=== PATIENT | male | born 1940 | race Caucasian/White ===

== ENCOUNTER 2021-06-07 08:07 | Inpatient (IN) | payer MEDICARE, SELFPAY ==
[2021-06-07] VITALS (43 sets, daily range): BP systolic 126–164; BP diastolic 73–97; PULSE 54–76; RESP 14–38; TEMP 36.2–37.1; O2SAT 90–100; BMI 20.9
--- NOTE | ~2021-06-07 | XR_ITS ---
XR chest 2V 06/10/2021 14:18 Indication: Shortness of breath Procedure: 2 view chest Comparison: 06/07/2021 Findings: Improving bibasilar airspace disease, compatible with pneumonia. There is probable superimp osed chronic interstitial fibrosis. Cannot exclude small effusion. No pneumothorax. Elevated left susana phragm. Impression: 1: Improving bibasilar airspace disease, consistent with pneumonia. Probable superimposed pulmonary f ibrosis. Reviewed, dictated and finalized at location A. Impression: 1: Improving bibasilar airspace disease, consistent with pneumonia. Probable herman perimposed pulmonary fibrosis.
--- NOTE | ~2021-06-07 | XR_ITS ---
EXAMINATION: XR hip RT 2V w AP pelvis EXAM DATE: 06/07/2021 08:54 INDICATION: Right hip pain after fall. TECHNIQUE: Right hip frontal, 'frog leg' projections for interpretation. Frontal projection pelvis. There is no prior study for comparison. FINDINGS: There is lucency along the right intertrochanteric region, possible acute closed posttrauma tic nondisplaced intertrochanteric fracture; recommend CT scan for further evaluation. Mild to modera te bilateral hip primary osteoarthritis. Advanced lower lumbar spondylosis. IMPRESSION: Recommend CT pelvis or right hip without contrast for possible nondisplaced intertrochan teric fracture. Reviewed, dictated and finalized at location B. IMPRESSION: Recommend CT pelvis or right hip without contrast for possible non displaced intertrochanteric fracture.
--- NOTE | ~2021-06-07 | XR_ITS ---
EXAMINATION: XR chest 1V EXAM DATE: 06/07/2021 08:54 INDICATION: fall, HX: HTN . TECHNIQUE: Portable AP frontal chest x-ray was obtained. There is no prior study for comparison. FINDINGS: 2 small cardiac device overlying the heart. There is moderate amount of diffuse abnormal re ticulation, acute versus chronic. Some more common acute processes include could be edema or pneumoni a. If chronic could be interstitial lung disease. Cardiomediastinal silhouette is normal. There may b e a moderate-sized gastroesophageal hiatal hernia. There are bony degenerative changes. IMPRESSION: 1. Diffuse abnormal reticulation, acute versus chronic process. Reviewed, dictated and finalized at location B.
--- NOTE | ~2021-06-07 | XR_ITS ---
EXAMINATION: XR knee RT min 4V DATE: 06/07/2021 08:54 INDICATION: Right knee pain. Fall. TECHNIQUE: 4 views of right knee were obtained. COMPARISON: None. FINDINGS: There is varus angulation at the knee. No fracture. There is severe osteoarthritis of media l and patellofemoral compartments and moderate osteoarthritis of lateral compartment. No knee joint e ffusion. IMPRESSION: 1. Severe right knee osteoarthritis. Reviewed, dictated and finalized at location A.
--- NOTE | ~2021-06-07 | CT_ITS ---
EXAMINATION: CT pelvis wo con EXAM DATE: 06/07/2021 09:37 INDICATION: Fall. Abnormal x-ray with suspicion of intertrochanteric fracture. TECHNIQUE: Spiral CT pelvis wo con was performed without contrast. Axial, coronal and sagittal imag es were reviewed. The dose-length product (DLP) for this examination was 263.54 mGy-cm. The exposur e was tailored according to patient size (auto mA exposure control), and iterative reconstruction ( IR) was used as additional dose reduction technique. There is no prior study for comparison. FINDINGS: There is acute closed posttraumatic nondisplaced fracture through the right intertrochante james region with minimal posterior angulation, no displacement. No dislocation. The left hip, pelvis, sacrum are intact. There is small to moderate-sized hematoma within or between the right gluteus maxi mum and medius muscles. Mild to moderate prostatomegaly. Prostate calcifications. There is mild to moderate sigmoid no pelvic lymphadenopathy. colonic diverticulosis. There is no adjacent inflammatory change to suggest divert iculitis. IMPRESSION: 1. Acute nondisplaced right hip intertrochanteric fracture. 2. Right gluteal hematoma. 3. Intact pelvis. Reviewed, dictated and finalized at location B.
--- NOTE | ~2021-06-07 | XR_ITS ---
XR surgery orthopedic 06/08/2021 17:24 Indication: Right hip intertrochanteric nail placement. Procedure: 9 fluoroscopic views of the right hip. 165 seconds of fluoroscopy. Comparison: No prior studies for comparison. Findings: Status post intraoperative fixation with intertrochanteric nail and intramedullary hilary. The re is a single distal interlocking screw. Fracture fragments in anatomic alignment post reduction. Impression: 1: Anatomic alignment of the right femur post reduction with intertrochanteric nail and intramedullar y hilary. Reviewed, dictated and finalized at location A. Impression: 1: Anatomic alignment of the right femur post reduction with intertrochanteric nail and intramedullary hilary.
--- NOTE | ~2021-06-07 | CT_ITS ---
EXAMINATION: CT brain wo con, CT cervical spine wo con EXAM DATE: 06/07/2021 08:32 INDICATION: Fall, hit right side of head. TECHNIQUE: Spiral CT of the head was performed without contrast. Axial, coronal and sagittal images were reviewed. Spiral CT of the cervical spine was performed without contrast. Axial images were rev iewed. Coronal and sagittal reformatted images were also reviewed. The dose-length product (DLP) fo r this examination was 605.33 (accession [id number]), 446.63 (accession [id number]) mGy-cm. The exposure was tailored according to patient size, and iterative reconstruction (ASIR) was used as additional dose reduction technique. There is no prior study for comparison. FINDINGS: HEAD CT: There is punctate old right cerebellar infarction. Old large bilateral middle cerebral arter y infarctions. Small old bilateral occipital lobe infarctions. Microangiopathy and cerebral atrophy. There is no acute intraparenchymal hemorrhage. No evidence of intraparenchymal brain mass lesion. N o evidence of acute infarction. There is no mass effect or midline shift. There is no obstructive hyd rocephalus suspected. There are no extra-axial collections. There are no acute calvarial fractures. Patient has had bilateral ocular lens surgery. Soft tissue is unremarkable. The visualized sinuse s and mastoid air cells are well aerated. CERVICAL CT: There is no evidence of acute cervical fracture. The odontoid process is intact. Pre- dens space is normal. Prevertebral soft tissue is normal. There are no soft tissue abnormalities id entified. There is no disc space widening or traumatic vertebral body subluxation suspected. There is moderate to severe cervical spondylosis. A detailed level by level evaluation of spondylosis can be added as addendum if requested. IMPRESSION: 1. No acute intracranial findings or cervical fracture. 2. Old infarctions. 3. Cervical spondylosis. Reviewed, dictated and finalized at location B. IMPRESSION: 1. No acute intracranial findings or cervical fracture. 2. Old infarctions. 3. Cervical spondylosis.
--- NOTE | 2021-06-07 08:24 | PC.NURSE ---
Pt to radiology.
--- NOTE | 2021-06-07 09:46 | ECG_ITS ---
Measurements Intervals [place] Rate: 59 P: 53 NV: 147 QRS: -24 QRSD: 116 T: -14 QT: 429 QTc: 425 Interpretive Statements SINUS BRADYCARDIA BORDERLINE ST-T WAVE ABNORMALITY- INFERIOR LEADS BASELINE ARTIFACT- I, II, III, AVR, AVL, AVF, V2-V6 BORDERLINE ECG Electronically Signed On 06-07-2021 10:17:48 CDT by Shaheen Abdalla D.O.
--- NOTE | 2021-06-07 10:15 | ED.FALL ---
HPI - Fall General Chief Complaint: Fall Stated Complaint: FALL, KNEE PAIN Source: RN notes reviewed History of Present Illness HPI Narrative: Patient presents emergency department from home via EMS for fall. Patient was at home with his currently walks with a cane when outdoors but does not use a cane when inside is in the bathroom today when he fell patient does have a history of a previous stroke and has some residual right-sided weakness patient is complaining of pain in his right knee and lower leg been unable to walk since the fall per the he does have a small abrasion over the side of his head and believes he hit his head but did not have any loss of consciousness he is on Pradaxa at home previous stroke patient denies any chest pain or shortness of breath he does have a history of aphasia from previous stroke Related Data Home Medications Medication Instructions Recorded Confirmed aspirin 81 mg tablet,delayed 81 mg PO DAILY 02/08/20 05/11/21 release dabigatran etexilate 75 mg capsule 75 mg PO BID 02/08/20 05/11/21 escitalopram oxalate [Lexapro] 5 mg PO DAILY 02/08/20 05/11/21 finasteride 5 mg PO DAILY 02/08/20 05/11/21 potassium chloride PO 02/08/20 05/11/21 Allergies Allergy/AdvReac Type Severity Reaction Status Date / Time No Known Allergies Allergy Verified 06/07/21 08:21 Review of Systems Review of Systems: Gen.: Denies fevers or chills Eyes: Denies eye pain or visual change ENT: Denies facial pain Respiratory: Denies shortness of breath CV: Denies chest pain GI: Denies abdominal pain nausea, emesis Musculoskeletal: See HPI Neuro: Denies headache or loss of consciousness Skin: Denies rash Except as documented, all other systems reviewed and negative [facility] Past Medical History Medical History Anxiety History of stroke Hypertension Surgical History Surgical History H/O esophagectomy History of back surgery History of hernia repair History of knee surgery Family History Family History Sibling Cerebrovascular accident Heart disease Mother Hypertension Other Hypertension Social History Social History Smoking status: Never smoker Alcohol intake: never Substance use: never Exam Narrative: APPEARANCE: No acute distress, nontoxic, resting in bed EYES: EOMI HEENT: Normocephalic, small superficial abrasion right lateral scalp, nares patent no facial tenderness Neck: Supple no midline tenderness palpation RESPIRATORY: No respiratory distress Clear to auscultation bilaterally with no rhonchi wheezing or rales. CARDIOVASCULAR: Regular rate and rhythm without murmurs rubs or gallops. ABDOMINAL: Soft, nontender, nondistended, no rebound or guarding MUSCULOSKELETAl: Moves all extremities. No clubbing, cyanosis or edema. No tenderness of bilateral upper extremities left lower extremity, tender palpation of the right lateral hip and right anterior knee no swelling or ecchymosis no tenderness of the right ankle dorsalis pedis pulse 2+ neurovascular intact NEURO: Awake and alert x 1. Following commands, aphasia, no focal deficits SKIN:: Warm, dry. No rashes lesions or abrasions PSYCHIATRIC: Normal affect/mood, Course Course Emergency Course: Discussed with Dr. Dean patient work-up agrees with consult at this time Discussed with Dr. Nguyen presentation work-up agrees with admission at this time Discussed with patient and family results of workup and diagnosis. Discussed need for admission. Patient and family understand and agree to current treatment plan Vital Signs Vital signs: Vital Signs Temperature 97.1 F L 06/07/21 08:10 Pulse Rate 59 L 06/07/21 08:10 Respiratory Rate 14 06/07/21 08:10 Blood Pressure 126/88 06/07/21 08:10 Pulse Oximetry
--- NOTE | 2021-06-07 10:25 | PC.NURSE ---
Attempted IV access and lab draw without success. Cat, RN to try.
[2021-06-07 11:21] LABS: Alanine Aminotransferase 20 U/L (4-50); Albumin Level 3.9 g/dL (3.5-5.1); Alkaline Phosphatase 103 U/L (38-126); Anion Gap 7 mmol/L (8-16); Aspartate Amino Transferase 30 U/L (17-59); Basophils Percent Auto 0.2 % (0.2-1.2); Blood Urea Nitrogen 22 mg/dL (9-20); Calcium 9.2 mg/dL (8.4-10.2); Carbon Dioxide 29 mmol/L (22-30); Chloride 105 mmol/L (98-107); Eosinophils Absolute Auto 0.1 K/mm3 (0-0.3); Eosinophils Percent Auto 0.6 % (0-4.4); Estimated CRCL calculation 57 ml/min; Estimated Glomerular Filt Rate > 60; Glucose 102 mg/dL (65-110); Hematocrit 44.8 % (42.0-52.0); Hemoglobin 14.6 g/dL (14.0-18.0); Immature Granulocyte Absolute 0.05 K/mm3 (0.00-0.031); Immature Granulocyte Percent A 0.4 % (0-0.5); Immature Platelet Fraction Pct 15.8 % (0.9-11.2); Lymphocytes Absolute Auto 1.95 K/mm3 (0.9-3.2); Lymphocytes Percent Auto 14.8 % (18.3-44.2); Mean Corpuscular HGB Conc 32.6 g/dl (32-36); Mean Corpuscular Hemoglobin 31.7 pg (26-34); Mean Corpuscular Volume 97.2 fl (80-100); Mean Platelet Volume 11.4 fl (7.4-10.4); Monocytes Absolute Auto 0.8 K/mm3 (0.1-0.6); Monocytes Percent Auto 5.8 % (2.6-8.5); Neutrophils Absolute Auto 10.3 K/mm3 (1.3-6.7); Neutrophils Percent Auto 78.2 % (45.5-73.1); Potassium 4.2 mmol/L (3.4-5.0); Red Blood Count 4.61 M/mm3 (4.6-6.20); Red Cell Distribution Width 14.6 % (11.5-14.5); Sodium 141 mmol/L (137-145); White Blood Count 13.2 K/mm3 (4.5-10.0)
[2021-06-07 11:25] LABS: INR 1.5; Prothrombin Time 17.7 Seconds (11.1-14.7)
[2021-06-07 11:26] LABS: Partial Thromboplastin Time 51.4 SECONDS (22.3-36.8)
--- NOTE | 2021-06-07 11:37 | PC.NURSE ---
Assumed care of pt. Pt resting in NAD. Denies need for pain medication at this time. Pt and spouse updated on POC. Urine sent.
[2021-06-07 12:04] LABS: Add Urine Microscopic? YES; Amorphous Sediment Urine Few; Appearance Urine Cloudy (Clear); Bilirubin Urine Negative (Negative); Blood Urine Negative (Negative); Budding Yeast Urine Present /hpf; Color Urine Yellow (Yellow); Glucose Urine UA Negative (Negative); Ketones Urine Trace mg/dL (Negative); Leukocyte Esterase Ur Negative LEU/UL (Negative); Nitrate Urine Negative (Negative); Protein Urine 1+ mg/dL (Negative); Specific Grav Ur 1.016 (1.001-1.035); Squamous Epithelial Cell Urine Rare /hpf (Few); Urobilinogen Urine Negative mg/dL (<2.0)
--- NOTE | 2021-06-07 14:15 | PM.IMHP ---
H&P: HPI History of Present Illness Date/Time: 06/07/21 14:15 this is a 72-year-old male patient who resides with his . The patient had had a stroke in the past and he has some right-sided residual. The patient has also had esophageal cancer in the past without any radiation only surgery. The patient does not walk with a cane inside the house and only walks with a cane outside the house. Today the patient was in the bathroom any fell and hit the right side of his head. He was complaining of pain to his right knee and lower leg he was unable to walk as well. The patient did not lose consciousness and is on Pradaxa at home. The patient has expressive aphasia and speaks very little. The patient's stated this cognitive state is his baseline. Head CT was read as no acute intracranial findings or cervical fracture. Old infarctions. Cervical spondylosis. Cervical spine CT read as no acute intracranial findings or cervical fracture. Old infarctions. Cervical spondylosis. Hip and pelvis x-ray was read as recommend CT pelvis of right hip without contrast for possible nondisplaced intertrochanteric fracture. Right knee x-ray was read as severe right knee osteoarthritis. Chest x-ray was read as diffuse abnormal reticulation acute versus chronic process. Pelvis CT was read as acute nondisplaced right hip intertrochanteric fracture. Right gluteal hematoma. Intact pelvis. Ortho has been consulted. Patient was given IV Tylenol. The right leg issue slightly shorter than the left. The patient is being admitted for observation status on the date of service 06/07/2021. Chief Complaint: Fall Review of Systems Review of Systems: All systems reviewed & are unremarkable except as noted in HPI and below Constitutional: Constitutional: Reports as per HPI and Reports no additional constitutional complaints Eyes: Eyes: Reports as per HPI and Reports no additional eye complaints ENT: Reports system reviewed and no additional complaints, except as documented and Reports Normal hearing present Cardiovascular: Cardiovascular: Reports no additional cardiovascular complaints Respiratory: Respiratory: Reports no additional respiratory complaints and Reports no additional respiratory complaints Gastrointestinal: Gastrointestinal: Reports as per HPI and Reports no additional gastrointestinal complaints Musculoskeletal: Musculoskeletal: Reports no additional musculoskeletal complaints Integumentary/Breasts: Skin/Breast: Reports system reviewed and no additional complaints, except as docu and Reports as per HPI Neurologic: Reports system reviewed and no additional complaints, except as documented, Reports as per HPI and Reports Normal hearing present Psychiatric: Psychiatric: Reports no additional psychiatric complaints and Reports as per HPI Endocrine: Endocrine: Reports no additional endocrine complaints Hematologic/Lymphatic: Hematologic/Lymphatic: Reports no additional hematologic/lymphatic complaints Allergic/Immunologic: Allergic/Immunologic: Reports no additional allergic/immunologic complaints [facility] Past Medical History Medical History (Updated 06/07/21 @ 14:31 by Tarah Meza NP) Anxiety With depression BPH (benign prostatic hyperplasia) History of CVA in adulthood Expressive aphasia and right-sided weakness. History of malignant neoplasm of esophagus Status post esophagectomy without any radiation or chemotherapy History of stroke Hypertension Paroxysmal atrial fibrillation Presence of Watchman left atrial appendage closure device Surgical History Surgical History H/O esophagectomy History of back surgery History of hernia repair History of knee surgery Family History Family History (Updated 06/07/21 @ 14:24 by Tarah Meza NP) Sibling Heart disease Mother Hypertension Other Hypertension Father COPD (chronic obstructive pulmonary disease) So
[2021-06-07] MEDS: SODIUM CHLORIDE 0.9% IV 1,000 ML 100 ML IV CONT (15:10)
--- NOTE | 2021-06-07 15:22 | ADMGEN ---
This patient, Eric Barry, was admitted to [facility] Surg Room 323-01. Patient/family oriented to hospital policies and general routines including ID bracelet, bed and alarms, visiting hours, pain management, procedures, bathroom and other care routines, personal items, smoking policy, room service/diet, and visiting hours. Information on how to activate the Rapid Response Team has been discussed. Patient/Family are encouraged to report perceived risks to care and to ask questions if they do not understand what they are told or what they should do.
--- NOTE | 2021-06-07 17:43 | PM.CNOR ---
Assessment and Plan Additional Plan Patient is a 80-year-old gentleman who fell earlier today M was brought to the emergency room found to have a minimally impacted right intertrochanteric hip fracture. One can see the fracture on the plain x-ray but to be absolutely sure his CT scan was recommended which confirmed the fracture. It looks like a mild valgus impaction pattern with about a mm of displacement in the medial calcar region. He also has a history of severe osteoarthritis in that right knee and has had cortisone shots in it in the past. He has not had cortisone shots for many years. 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 His last dose of Pradaxa was 9:00 p.m. last night. His past medical history is also significant for hypertension remote smoking history BPH back surgery in the past he history of hernia repair and knee surgery and history of esophagectomy for malignant neoplasm of the esophagus. He does have expressive aphasia from a stroke but he was able to answer yes or no when I asked him direct questions and he does follow commands. No His states that he normally walks without any gait aid at home but does use a cane when he goes out for balance. On exam he listened closely to my discussion with him and his . He did answer questions with yes or no. His voice is a little bit weak. He wiggles is foot into dorsiflexion plantar flexion without difficulty without contracture or spasticity. He has a 2+ dorsalis pedis 1+ posterior tibial artery pulse palpable that I had numbness light touch testing. He does appear to have a flexion contracture his right knee but there is no effusion and no tenderness at the knee. His ecchymosis in the posterolateral hip area and pain in the hip proximal thigh with any movement. He has had CT of the head which showed old stroke and no acute bleed and CT of the cervical spine which showed no fracture. X-rays of the right knee showed severe arthritis. Impression patient has a minimally displaced right intertrochanteric hip fracture. I have discussed treatment options with patient and his . This fracture can heal with nonoperative treatment but does require at least 4 in usually 6 weeks of relative bed rest to achieve union and mortality risk with non operative treatment of these fractures is higher than with surgical treatment at all time points and it is therefore felt that surgical stabilization is the best treatment unless patient is not a surgical candidate for some reason. He was ambulatory before this fall would like to hopefully regain optimal level of ambulation again. I have discussed with patient and his that there are risks of surgery such as infection and blood clots and problems with healing of the fracture. I have discussed that with this fracture and with stress of anesthesia there is risk of severe medical complications and mortality and to this end his states that he wishes to be DNR but understands that that would be suspended during the immediate perioperative period. They would like to proceed with surgery. I have made plans with anesthesia to proceed at 3:00 p.m. tomorrow which would be 42 hours after his last dose of Pradaxa which I think would be appropriate. I have discussed that he will have increased bleeding today tomorrow and postoperatively because of his anticoagulation and his risk of needing a transfusion is higher in the is typed and screened. I would like to have cardiology see him for assessment of cardiac risk and any other treatment recommendations. Depending on whether not he show signs of bleeding after surgery we would restart his Pradaxa either 9:00 a.m. the morning after surgery or the of 9:00
[2021-06-08] VITALS (14 sets, daily range): BP systolic 142–165; BP diastolic 75–88; PULSE 62–91; RESP 14–22; TEMP 35.9–36.6; O2SAT 93–100; BMI 20.9
--- NOTE | 2021-06-08 | ECHO_ITS ---
Patient Info Name: Eric Barry Age: 80 years : 1940 Gender: Male Ht: 71 in Wt: 150 lbs BSA: 1.84 m2 HR: 70 bpm BP: 145 / 81 mmHg Heart Rhythm: Sinus Rhythm Technical Quality: Poor Exam Date: 06/08/2021 10:18 AM Exam Location: [facility] Pulmonary Patient Status: Inpatient Admit Date: 06/07/2021 Staff Ordering Physician: José Miguel Garcia MD Licensed Loan Officer Assistant: Hanna Preston RDCS Attending Provider: Kristin Nguyen MD Referring Physician: Jose SOMMER; Exam Type: CA echo dop color flow w con Study Info Indications - PREOP I48.0 - Paroxysmal atrial fibrillation Complete two-dimensional, color flow and Doppler transthoracic echocardiogram is performed with contrast to opacify the left ventricle and to improve the deliniation of the left ventricle endocardial borders. Contrast/Agitated Saline Contrast/Ag. Saline: Definity Amount: 2.00 ml Administered By: Lily Kelly RN Existing IV Access: Yes Site Condition: No extravasation Reason for Poor Study: poor echocardiographic windows Summary 1. Left ventricular chamber dimension is normal. 2. Left ventricular systolic function is normal, estimated at 55-60%. 3. There is mildly increased left ventricular wall thickness. 4. The left ventricular diastolic function is abnormal. 5. Left atrial chamber dimension is mildly enlarged. 6. There is mild mitral valve regurgitation. 7. The mitral valve has thickened leaflets and calcified leaflets. 8. There is mild tricuspid valve regurgitation. 9. Mild pulmonary hypertension, estimated pulmonary arterial systolic pressure is 39 mmHg. 10. There is mild pulmonic regurgitation. Left Ventricle Left ventricular chamber dimension is normal. Left ventricular systolic function is normal, estimated at 55-60%. There is mildly increased left ventricular wall thickness. The left ventricular diastolic function is abnormal. Right Ventricle Right ventricular chamber dimension is normal. Right ventricular systolic function is normal. Left Atria Left atrial chamber dimension is mildly enlarged. Right Atria Right atrial chamber dimension is normal. Atrial Septum Intact interatrial septum visualized by color flow imaging. Aortic Valve The aortic valve is trileaflet. There is mild aortic valve sclerosis. There is no aortic valve stenosis. There is trace aortic valve regurgitation. Pulmonic Valve The pulmonic valve is normal. There is no pulmonic valve stenosis. There is mild pulmonic regurgitation. Mitral Valve The mitral valve has thickened leaflets and calcified leaflets. There is no mitral valve stenosis. There is mild mitral valve regurgitation. Tricuspid Valve The tricuspid valve leaflets are normal. There is no significant tricuspid valve stenosis. There is mild tricuspid valve regurgitation. Mild pulmonary hypertension, estimated pulmonary arterial systolic pressure is 39 mmHg. Pericardium/Pleural The pericardium appears normal. There is no pericardial effusion. Inferior Vena Cava Normal inferior vena cava with >50% collapse upon inspiration consistent with normal right atrial pressure, 10 mmHg. Aorta The aortic root size at the sinus of Valsalva is normal. Left Ventricular Outflow Tract Name Value Normal
[2021-06-08] MEDS: SODIUM CHLORIDE 0.9% IV 1,000 ML 100 ML IV CONT ×2 (02:29→12:18)
[2021-06-08 06:21] LABS: Basophils Absolute Auto 0.1 K/mm3 (0.0-0.1); Basophils Percent Auto 0.6 % (0.2-1.2); Eosinophils Absolute Auto 0.3 K/mm3 (0-0.3); Eosinophils Percent Auto 2.4 % (0-4.4); Hematocrit 40.6 % (42.0-52.0); Hemoglobin 12.7 g/dL (14.0-18.0); Immature Granulocyte Absolute 0.04 K/mm3 (0.00-0.031); Immature Granulocyte Percent A 0.4 % (0-0.5); Lymphocytes Absolute Auto 1.71 K/mm3 (0.9-3.2); Lymphocytes Percent Auto 16.2 % (18.3-44.2); Mean Corpuscular HGB Conc 31.3 g/dl (32-36); Mean Corpuscular Hemoglobin 31.7 pg (26-34); Mean Corpuscular Volume 101.2 fl (80-100); Mean Platelet Volume 9.5 fl (7.4-10.4); Monocytes Absolute Auto 0.9 K/mm3 (0.1-0.6); Monocytes Percent Auto 8.5 % (2.6-8.5); Neutrophils Absolute Auto 7.6 K/mm3 (1.3-6.7); Neutrophils Percent Auto 71.9 % (45.5-73.1); Platelet Count Result 134 k/mm3 (150-375); Red Blood Count 4.01 M/mm3 (4.6-6.20); White Blood Count 10.5 K/mm3 (4.5-10.0)
[2021-06-08 06:36] LABS: Alanine Aminotransferase 16 U/L (4-50); Albumin Level 3.4 g/dL (3.5-5.1); Alkaline Phosphatase 90 U/L (38-126); Anion Gap 6 mmol/L (8-16); Aspartate Amino Transferase 22 U/L (17-59); Bilirubin,Total 1.1 mg/dL (0.2-1.3); Blood Urea Nitrogen 20 mg/dL (9-20); Calcium 8.6 mg/dL (8.4-10.2); Carbon Dioxide 27 mmol/L (22-30); Chloride 106 mmol/L (98-107); Estimated CRCL calculation 52 ml/min; Estimated Glomerular Filt Rate > 60; Glucose 112 mg/dL (65-110); Sodium 139 mmol/L (137-145)
[2021-06-08 06:45] LABS: INR 1.3; Prothrombin Time 16.3 Seconds (11.1-14.7)
[2021-06-08 06:46] LABS: Partial Thromboplastin Time 47.9 SECONDS (22.3-36.8); Vitamin D 25 Hydroxy 33.5 ng/mL
[2021-06-08] MEDS: ESCITALOPRAM OXALATE 5 MG TABLET PO (08:14)
[2021-06-08] MEDS: FINASTERIDE 5 MG TABLET PO (08:14)
--- NOTE | 2021-06-08 09:17 | PM.CNCAR ---
Assessment and Plan Assessment and plan (1) Paroxysmal atrial fibrillation: Code(s): I48.0 - Paroxysmal atrial fibrillation Status: Chronic Assessment and Plan: In sinus rhythm. Anticoagulation is on hold. Resume anticoagulation when able after (2) Hypertension: Code(s): I10 - Essential (primary) hypertension Status: Chronic Assessment and Plan: above goal (3) Preop cardiovascular exam: Code(s): Z01.810 - Encounter for preprocedural cardiovascular examination Status: Acute Assessment and Plan: Patient is at low risk of perioperative cardiovascular complications. (4) History of stroke: Code(s): Z86.73 - Personal history of transient ischemic attack (TIA), and cerebral infarction without residual deficits Status: Acute (5) Chronic anticoagulation: Code(s): Z79.01 - local company intermodal truck driver (current) use of anticoagulants Status: Acute Assessment and Plan: Previously on Pradaxa (6) Closed intertrochanteric fracture of right hip: Code(s): S72.141A - Displaced intertrochanteric fracture of right femur, initial encounter for closed fracture Status: Acute Assessment and Plan: Patient is at low risk of perioperative cardiovascular complications. I will check a 2D echocardiogram with Doppler for basic LV size and function and for any valvular abnormalities but again I think that the patient needs a stress test or any ischemic evaluation prior to hip surgery. EKGs are unchanged over the past 4 years. History of Present Illness History of Present Illness Consult date/time: 06/08/21 09:17 Requesting physician: Robin Dean MD Consult reason: pre-op evaluation Reason For Visit: FALL, KNEE PAIN Narrative: Date of service 06/08/2021 Reason consultation preoperative risk evaluation Requesting provider: Dr. Dean History patient 72 year old male who has no known coronary history. He does have a history of a stroke in some residual right-sided issues. Also has history of esophageal cancer. He came to hospital following a fall. He is in the bathroom and fell and hit the right side resulting in a hip fracture. He does have expressive aphasia but does answer questions. He denies any chest pain, shortness breath, syncope, presyncope, paroxysmal nocturnal dyspnea, orthopnea, edema palpitations. He does walk with a cane. EKG is unchanged from 2017 showing some inferior nonspecific ST and T-wave abnormalities. Otherwise sinus bradycardia. These EKGs are personally reviewed. Review of Systems Review of Systems: All systems reviewed & are unremarkable except as noted in HPI and below Constitutional: Constitutional: Reports weakness Eyes: Eyes: Denies blurry vision ENT: Reports Normal hearing present Cardiovascular: Cardiovascular: Denies chest pain Respiratory: Respiratory: Denies dyspnea Gastrointestinal: Gastrointestinal: Denies abdominal pain Genitourinary: Genitourinary: Denies dysuria Musculoskeletal: Musculoskeletal: Denies neck pain Integumentary/Breasts: Skin/Breast: Denies dry skin Neurologic: Denies headache(s) Psychiatric: Psychiatric: Denies anxiety Endocrine: Endocrine: Denies fatigue Hematologic/Lymphatic: Hematologic/Lymphatic: Denies easy bleeding Allergic/Immunologic: Allergic/Immunologic: Denies GI upset with certain foods PMFSH Past Medical History Medical History Anxiety With depression BPH (benign prostatic hyperplasia) History of CVA in adulthood Expressive aphasia and right-sided weakness. History of malignant neoplasm of esophagus Status post esophagectomy without any radiation or chemotherapy History of stroke Hypertension Paroxysmal atrial fibrillation Presence of Watchman left atrial appendage closure device Surgical History Surgical History H/O esophagectomy Hist
--- NOTE | 2021-06-08 12:25 | PM.IMPN ---
Progress Note: A&P Assessment and Plan (1) Closed intertrochanteric fracture of right hip: Code(s): S72.141A - Displaced intertrochanteric fracture of right femur, initial encounter for closed fracture Status: Acute (2) Paroxysmal atrial fibrillation: Code(s): I48.0 - Paroxysmal atrial fibrillation Status: Chronic (3) Chest x-ray abnormality: Code(s): R93.89 - Abnormal findings on diagnostic imaging of other specified body structures Status: Acute Assessment and Plan: diffuse abnormal reticulation seen on chest xray - acute vs chronic based on read pt does not have pulmonary symptoms at the moment suspect some undiagnosed underlying chronic lung issue - plan to obtain Chest CT (4) Hypertension: Code(s): I10 - Essential (primary) hypertension Status: Chronic (5) BPH (benign prostatic hyperplasia): Code(s): N40.0 - Benign prostatic hyperplasia without lower urinary tract symptoms Status: Chronic (6) Anxiety: Code(s): F41.9 - Anxiety disorder, unspecified Status: Chronic Additional Plan Closed intertrochanteric f/x rt hip: plan for OR for procedure of rt hip once cardiac clearance; continue IVF with NS, prn norco for pain, although does not seem to be problem at the moment Cardiac Clearance: cards saw and rec 2d echo for LV function, and rec stress test prior to hip surgery, hopefully today? AFib on AC:plan from ortho is to restart Pradaxa day after surgery either in morning or night based on bleeding - this is for paroxysmal AFib, for which he also has watchman device Code Status: Apparently surgery also discussed code status with him - they are considering DNR after the procedure & post-op period; will discuss in greater deal with him tonight Abnormal CXR: diffuse reticulation on CXR, however patient asymptomatic; may represent undiagnosed underlying lung interstitial disease, will pursue further incl Chest CT and poosible pulm consultiation following resolution of hip issue Time Spent With Patient Time with patient: less than 15 minutes Subjective Date/time seen: 06/08/21 12:25 no acute complaints resting comfortably Review of Systems Review of Systems: All systems reviewed & are unremarkable except as noted in HPI and below Exam Const: General: no acute distress Neck: Neck: no JVD Resp: Effort & Inspection: normal respiratory effort Auscultation: clear to auscultation bilaterally Cardio: Rate: regular rate Rhythm: regular rhythm GI: Inspection: non-distended Objective Data Vital Signs Vital Signs: Vital Signs - 24 hr 06/07/21 12:30 06/07/21 12:32 06/07/21 12:45 Temperature Pulse Rate 61 62 69 Respiratory Rate 22 H 21 H 26 H Blood Pressure 146/78 H Pulse Oximetry 92 93 94 06/07/21 13:00 06/07/21 13:01 06/07/21 13:15 Temperature Pulse Rate 70 70 68 Respiratory Rate 25 H 27 H 17 Blood Pressure 163/87 H Pulse Oximetry 95 94 94 06/07/21 13:30 06/07/21 13:31 06/07/21 13:45 Temperature Pulse Rate 75 74 68 Respiratory Rate 24 H 27 H 26 H Blood Pressure 149/74 H Pulse Oximetry 94 94 93 06/07/21 14:00 06/07/21 14:01 06/07/21 21:15 Temperature 98.2 F Pulse Rate 70 70 Respiratory Rate 24 H 29 H Blood Pressure 132/83 Pulse Oximetry 93 94 91 06/07/21 22:00 06/08/21 06:00 06/08/21 08:00 Temperature 98.8 F 97.7 F Pulse Rate 75 69 69 Respiratory Rate 18 16 16 Blood Pressure 151/80 H 145/81 H Pulse Oximetry 93 93 93 Intake/Output Intake/Output: Intake & Output 06/05/21 06/06/21 06/07/21 06/08/21 23:59 23:59 23:59 23:59 Intake Total 1190 2000 Output Total 450 Balance 1190 1550 Meds/Results Medications: Active Medications Generic Name Dose Route Start Last Admin Trade Name Ajitq PRN Reason Stop Dose Admin Escitalopram Oxalate 5 mg 06/08/21 09:00 06/08/21 08:14 Escitalopram Oxalate 5 Mg Tablet PO 5 mg DAILY STEPHIE Administration Finasteride 5 mg
--- NOTE | 2021-06-08 13:36 | WPDHPUPDATE1 ---
History and Physical Update Update Date/Time: 06/08/21 13:36 History and Physical has been reviewed, including an updated exam of the patient. There are NO changes in the patient's condition. Risks, benefits, and alternatives have been discussed and questions answered. Patient agrees to proceed with procedure.
--- NOTE | 2021-06-08 14:12 | PCAUD ---
Addendum entered by Lauren Rodriguez RN 06/08/21 14:19: Report and surgerical SBAR given to Arabella, all consents signed. Pre-op vancomycin. Pt leaving to pre- op at this time. Original Note: Report and surgerical SBAR given to Arabella, all consents signed. Pre-op vancomycin. Pt leaving to surgical at this time.
--- NOTE | 2021-06-08 14:17 | PCAUD ---
Report given to pre-op nurse Arabella, pre-op vancomycin started per report. Pt picked up for surgery at 1417
--- NOTE | 2021-06-08 14:32 | PC.NURSE ---
On 06/08/21, the student, Adwoa [facility], provided care and completed morphCARD documentation on this patient. I have reviewed the student's documentation and agree with the findings.
--- NOTE | 2021-06-08 15:00 | WPDANESEPPF ---
Anes - Initial Pre Proc Eval Procedure: Operation Date: 06/08/21 16:30 Proposed Procedures p Right Hip Intertrochanteric Nail - Robin Dean MD Date/Time: 06/08/21 15:00 Surgeon: Kristin Nguyen MD Pre Op Diagnosis: FALL, KNEE PAIN Patient Data Age: 80 Gender: M Height: 1.8 m Weight: 68.18 kg Last Vital Signs Temp 36.3 C L 06/08/21 14:00 Pulse 75 06/08/21 14:00 Resp 14 06/08/21 14:00 BP 165/84 H 06/08/21 14:00 Pulse Ox 97 06/08/21 14:00 Allergies Allergy/AdvReac Type Severity Reaction Status Date / Time No Known Allergies Allergy Verified 06/07/21 16:28 Home Medications Medication Instructions Recorded Confirmed Type aspirin 81 mg tablet,delayed 81 mg PO DAILY 02/08/20 06/07/21 History release dabigatran etexilate 75 mg capsule 75 mg PO BID 02/08/20 06/07/21 History escitalopram oxalate [Lexapro] 5 mg PO DAILY 02/08/20 06/07/21 History finasteride 5 mg PO DAILY 02/08/20 06/07/21 History potassium chloride 15 meq PO EVERY OTHER DAY 02/08/20 06/07/21 History Laboratory Tests 06/08/21 06/08/21 06/08/21 06:04 06:04 06:04 WBC 10.5 K/mm3 H K/mm3 (4.5-10.0) RBC 4.01 M/mm3 L M/mm3 (4.6-6.20) Hgb 12.7 g/dL L g/dL (14.0-18.0) Hct 40.6 % L % (42.0-52.0) MCV 101.2 fl H fl (80-100) MCH 31.7 pg pg (26-34) MCHC 31.3 g/dl L g/dl (32-36) RDW 15.0 % H % (11.5-14.5) Plt Count 134 k/mm3 L k/mm3 (150-375) MPV 9.5 fl fl (7.4-10.4) Immature Gran % (Auto) 0.4 % % (0-0.5) Neut % (Auto) 71.9 % % (45.5-73.1) Lymph % (Auto) 16.2 % L % (18.3-44.2) [place] % (Auto) 8.5 % % (2.6-8.5) Eos % (Auto) 2.4 % % (0-4.4) Baso % (Auto) 0.6 % % (0.2-1.2) Lymph # (Auto) 1.71 K/mm3 K/mm3 (0.9-3.2) [place] # (Auto) 0.9 K/mm3 H K/mm3 (0.1-0.6) Eos # (Auto) 0.3 K/mm3 K/mm3 (0-0.3) Baso # (Auto) 0.1 K/mm3 K/mm3 (0.0-0.1) Abs Immat Gran (auto) 0.04 K/mm3 H K/mm3 (0.00-0.031) Absolute Neuts (auto) 7.6 K/mm3 H K/mm3 (1.3-6.7) Absolute Nucleated RBC 0.0 K/mm3 K/mm3 (0.0-0.012) Nucleated RBC % 0.0 % % (0.0-0.2) PT 16.3 Seconds H Seconds (11.1-14.7) INR 1.3 APTT 47.9 SECONDS H SECONDS (22.3-36.8) Sodium Potassium Chloride Carbon Dioxide Anion Gap BUN Creatinine Estim Creat Clear Calc Estimated GFR Glucose Calcium Total Bilirubin AST ALT Alkaline Phosphatase Total Protein Albumin Vitamin D 25-Hydroxy 33.5 ng/mL ng/mL 06/08/21 06:05 WBC RBC Hgb Hct MCV MCH MCHC RDW Plt Count MPV Immature Gran % (Auto) Neut % (Auto) Lymph % (Auto) [place] % (Auto) Eos % (Auto) Baso % (Auto) Lymph # (Auto) [place] # (Auto) Eos # (Auto) Baso # (Auto) Abs Immat Gran (auto) Absolute Neuts (auto) Absolute Nucleated RBC Nucleated RBC % PT INR APTT Sodium 139 mmol/L mmol/L (137-145) Potassium 4.0 mmol/L mmol/L (3.4-5.0) Chloride 106 mmol/L mmol/L (98-107) Carbon Dioxide 27 mmol/L mmol/L (22-30) Anion Gap 6 mmol/L L mmol/L (8-16) BUN 20 mg/dL mg/dL (9-20) Creatinine 1.00 mg/dL mg/dL (0.7-1.3) Estim Creat Clear Calc 52 ml/min ml/min Estimated GFR > 60 (59 - ) Glucose 112 mg/dL H mg/dL (65-110) Calcium 8.6 mg/dL mg/dL (8.4-10.2) Total Bilirubin 1.1 mg/dL mg/dL (0.2-1.3) AST 22 U/L U/L (17-59) ALT 16 U/L U/L (4-50) Alkaline Phosphatase 90 U/L U/L (38-126) Tota
[2021-06-08] MEDS: LACTATED RINGERS 1,000 ML 30 ML IV CONT ×2 (15:17→17:29)
[2021-06-08] MEDS: TRANEXAMIC ACID 1,000MG/ISO100 1,000 MG/100 ML BAG 200 MG IVPB (15:24)
[2021-06-08] MEDS: ceFAZolin 2 GM/D5W 50 ML 2 GM/50 ML BAG IVPB (15:47)
[2021-06-08] MEDS: ceFAZolin SODIUM 1 GM VIAL IRRIGATION (16:37)
--- NOTE | 2021-06-08 17:40 | P.OP_ITS ---
Procedure Note - Detailed Date of Procedure 06/08/21 Pre-op Diagnosis Right intertrochanteric hip fracture Post-op Diagnosis same Procedure Performed Open reduction internal fixation right intertrochanteric hip fracture Surgeon Robin Dean MD Software Design Engineer Shoaib Anesthesia general Description of Procedure Patient was brought to the operating room and general anesthesia was administered. The right hip and thigh were carefully scrubbed with the chlorhexidine cloths. He was placed on the fracture table the right foot placed in the traction boot after wrapping it with soft roll Coban and an ABD. The left hip was flexed and abducted out of the way. The right hip was prepped and draped in the usual fashion. He received 2 g of Ancef weight based vancomycin 1 g tranexamic acid preoperatively. A 1/2 and 1/2 inch longitudinal incision was made proximal to greater trochanter. A guidewire was inserted into the tip of the greater trochanter into the canal and the starter Reamer was used to make an entrance hole long hilary inserted. The canal was reamed to 13 mm. Proximal femur was reamed to 16 mm and the 11 mm by 125 degree angle Affixus trochanteric nail was inserted under manual pressure the proper it depth. We maintained perfect anatomic reduction throughout the procedure. Guide pin was inserted and because of his relative anterior offset of the neck relative to the axis of the femoral shaft, the guide pin skirted along the posterior femoral neck into the center of the femoral head slightly below center on the AP view. Superior to this and anti rotation guide pin was placed. The tract for the hip lag screw was reamed and we chose an 85 mm lag screw that was placed 10 mm of subchondral bone obtained very good purchase. The set screw was locked and backed off 180?. A 70 mm anti rotation screw was then placed. A single distal interlocking screw was placed in the static mode without difficulty. Final fluoroscopic x-ray showed that we had maintained anatomic alignment with appropriate position of the screw hardware. The wounds were thoroughly irrigated with antibiotic solution. Fashion the proximal incision closed with 1 Vicryl 2-0 subcutaneous in the skin and glue. EBL was approximately 200 cc. 3rd g Ancef given at time of wound closure. There were no complications he was transferred postop recovery room stable condition. He tolerated the anesthesia well. Implants Affixus Estimated Blood Loss 200 Drains No Packing No Pathology none sent Complications No immediate complications Condition stable Disposition PACU
[2021-06-08] MEDS: fentaNYL CITRATE INJ (*CRX) 100 MCG/2 ML VIAL 25 MCG IV PUSH (17:55)
--- NOTE | 2021-06-08 19:04 | PCAUD ---
Pt back for surgery R hip IT nails, placed on tele monitor. Pt awake and alert. No c/o pain or distress. Report received from Adrienne FARIAS.
[2021-06-08] MEDS: oxyCODONE HCL (*CRX) 2.5 MG TAB IR PO (19:38)
[2021-06-08] MEDS: SODIUM CHLORIDE 0.9% IV 1,000 ML 125 ML IV CONT (19:38)
[2021-06-08] MEDS: FAMOTIDINE 20 MG TABLET PO (21:19)
[2021-06-08] MEDS: ACETAMINOPHEN 500 MG TABLET 1000 MG PO (21:19)
[2021-06-09] VITALS (14 sets, daily range): BP systolic 129–148; BP diastolic 70–86; PULSE 67–91; RESP 12–18; TEMP 36.1–36.8; O2SAT 90–100
[2021-06-09] MEDS: ACETAMINOPHEN 500 MG TABLET 1000 MG PO ×4 (02:11→21:41)
[2021-06-09] MEDS: oxyCODONE HCL (*CRX) 2.5 MG TAB IR PO ×3 (02:12→17:06)
[2021-06-09 06:28] LABS: Basophils Percent Auto 0.5 % (0.2-1.2); Eosinophils Absolute Auto 0.4 K/mm3 (0-0.3); Eosinophils Percent Auto 5.2 % (0-4.4); Hematocrit 31.2 % (42.0-52.0); Hemoglobin 9.9 g/dL (14.0-18.0); Immature Granulocyte Absolute 0.02 K/mm3 (0.00-0.031); Immature Granulocyte Percent A 0.3 % (0-0.5); Lymphocytes Percent Auto 23.1 % (18.3-44.2); Mean Corpuscular HGB Conc 31.7 g/dl (32-36); Mean Corpuscular Hemoglobin 31.4 pg (26-34); Mean Platelet Volume 9.7 fl (7.4-10.4); Monocytes Absolute Auto 0.8 K/mm3 (0.1-0.6); Monocytes Percent Auto 11.1 % (2.6-8.5); Neutrophils Absolute Auto 4.4 K/mm3 (1.3-6.7); Neutrophils Percent Auto 59.8 % (45.5-73.1); Platelet Count Result 100 k/mm3 (150-375); Red Blood Count 3.15 M/mm3 (4.6-6.20); White Blood Count 7.4 K/mm3 (4.5-10.0)
[2021-06-09 06:52] LABS: Alanine Aminotransferase 13 U/L (4-50); Albumin Level 2.7 g/dL (3.5-5.1); Alkaline Phosphatase 66 U/L (38-126); Anion Gap 5 mmol/L (8-16); Aspartate Amino Transferase 22 U/L (17-59); Blood Urea Nitrogen 15 mg/dL (9-20); Carbon Dioxide 23 mmol/L (22-30); Chloride 106 mmol/L (98-107); Estimated CRCL calculation 64 ml/min; Estimated Glomerular Filt Rate > 60; Glucose 106 mg/dL (65-110); Magnesium 1.8 mg/dL (1.6-2.3); Phosphorus 3.1 mg/dL (2.5-4.5); Potassium 4.2 mmol/L (3.4-5.0); Sodium 134 mmol/L (137-145)
--- NOTE | 2021-06-09 07:35 | PM.PNORT ---
Progress Note: A&P Additional Plan Postop day 1 patient is alert. Afebrile vital signs are stable. His dressings are dry. Neurovascular is intact. His pain is well controlled. He has not been up out of bed yet. He is 50% weight-bearing for the 1st 6 weeks. His morning CBC is not back yet. We will check on this later. We will resume his Pradaxa this morning. We will plan to have the patient work with physical therapy today and tomorrow. Patient would rather go home than to a rehab facility. He has a and son they can help him out. Think that if he is comfortable getting up moving about and is able to maintain weight-bearing status I see no problem with him going home. We will plan to see how he is doing tomorrow as well as rechecking CBC tomorrow as well. Subjective Subjective Date/Time Seen: 06/09/21 07:35 Objective Data Vital Signs Vital Signs: Vital Signs - 24 hr 06/08/21 08:00 06/08/21 14:00 06/08/21 14:30 Temperature 36.3 C L 36.3 C L Pulse Rate 69 75 62 Respiratory Rate 16 14 16 Blood Pressure 165/84 H 161/85 H Pulse Oximetry 93 97 100 06/08/21 17:29 06/08/21 17:45 06/08/21 18:00 Temperature 36.6 C Pulse Rate 91 84 79 Respiratory Rate 20 18 18 Blood Pressure 150/88 H 156/80 H 157/82 H Pulse Oximetry 100 100 95 06/08/21 18:15 06/08/21 18:30 06/08/21 18:40 Temperature Pulse Rate 80 78 79 Respiratory Rate 17 18 16 Blood Pressure 147/85 H 143/75 H 148/80 H Pulse Oximetry 99 100 100 06/08/21 19:00 06/08/21 19:30 06/08/21 20:00 Temperature 35.9 C L 36.4 C Pulse Rate 77 79 86 Respiratory Rate 22 H 20 Blood Pressure 146/75 H 146/86 H Pulse Oximetry 99 100 95 06/08/21 20:30 06/09/21 00:00 06/09/21 00:27 Temperature 36.3 C L 36.1 C L Pulse Rate 83 91 85 Respiratory Rate 20 18 Blood Pressure 142/75 H 148/77 H Pulse Oximetry 100 100 06/09/21 04:00 06/09/21 04:30 Temperature 36.6 C Pulse Rate 79 84 Respiratory Rate 18 Blood Pressure 133/70 Pulse Oximetry 98 Intake/Output Intake/Output: Intake & Output 06/06/21 06/07/21 06/08/21 06/09/21 23:59 23:59 23:59 23:59 Intake Total 1190 2200 800 Output Total 1340 300 Balance 1190 860 500 Meds/Results Medications: Active Medications Generic Name Dose Route Start Last Admin Trade Name Freq PRN Reason Stop Dose Admin Acetaminophen 1,000 mg 06/08/21 20:00 06/09/21 02:11 Acetaminophen 500 Mg Tablet PO 1,000 mg Q6H STEPHIE Administration Al Hydrox/Mg Hydrox/Simethicone 30 ml 06/08/21 18:45 Mag Hydrox/Al Hydrox/Simeth 30 Ml Udc PO Q6H PRN Indigestion Aspirin 81 mg 06/09/21 09:00 Aspirin 81 Mg Enteric Tablet PO DAILY STEPHIE Dabigatran 75 mg 06/09/21 09:00 Dabigatran Etexilate 75 Mg Capsule PO BID [facility] Escitalopram Oxalate 5 mg 06/08/21 09:00 06/08/21 08:14 Escitalopram Oxalate 5 Mg Tablet PO 5 mg DAILY STEPHIE Administration Famotidine 20 mg 06/08/21 21:00 06/08/21 21:19 Famotidine 20 Mg Tablet PO 20 mg Q12HR STEPHIE Administration Finasteride 5 mg 06/08/21 09:00 06/08/21 08:14 Finasteride 5 Mg Tablet PO 5 mg QAM STEPHIE Administration Hydroxyzine HCl 50 mg 06/08/21 18:45 Hydroxyzine Hcl 25 Mg Tablet PO Q4H PRN Itching Vancomycin HCl 1,000 mg in 250 mls @ 250 mls/hr 06/09/21 02:00 06/09/21 02:12 Vancomycin 1,000 Mg/D5w 250 Ml IVPB 06/09/21 14:59 250 mls/hr Q12H STEPHIE Administration Cefazolin Sodium 1 gm in 50 mls @ 100 mls/hr 06/09/21 00:00 06/09/21 02:00 Ancef 1 Gm/D5w 50 Ml Pm IVPB 06/09/21 16:29 Infused Q8H STEPHIE Infusion Magnesium Hydroxide 30 ml 06/08/21 18:45 Magnesium Hydroxide Susp 30 Ml Udc PO BID PRN Constipation Morphine Sulfate 2 mg 06/08/21 18:45 Morphine Sulfate (*Crx) 2 Mg/Ml Inj IV PUSH Q4H PRN Pain Rated 7-10 Naloxone HCl 0.1 mg 06/08/21 18:45 Naloxone Hcl 0.4 Mg/Ml Vial IV PUSH Q2M PRN Opiate Reversal Ondansetron HCl 4 mg 06/08
[2021-06-09] MEDS: POTASSIUM CHLORIDE 10 MEQ TABLET PO (08:31)
[2021-06-09] MEDS: polyethylene glycoL 3350 17 GM POWD.PACK PO (08:31)
[2021-06-09] MEDS: FINASTERIDE 5 MG TABLET PO (08:31)
[2021-06-09] MEDS: DABIGATRAN ETEXILATE 75 MG CAPSULE PO ×2 (08:32→17:06)
[2021-06-09] MEDS: ESCITALOPRAM OXALATE 5 MG TABLET PO (08:32)
[2021-06-09] MEDS: FAMOTIDINE 20 MG TABLET PO ×2 (08:32→21:41)
[2021-06-09] MEDS: ASPIRIN 81 MG ENTERIC TABLET PO (08:32)
[2021-06-09] MEDS: SENNA/DOCUSATE SODIUM TABLET 2 TAB PO ×2 (08:32→17:29)
--- NOTE | 2021-06-09 08:54 | PM.IMPN ---
Progress Note: A&P Assessment and Plan (1) Closed intertrochanteric fracture of right hip: Code(s): S72.141A - Displaced intertrochanteric fracture of right femur, initial encounter for closed fracture Status: Acute (2) Paroxysmal atrial fibrillation: Code(s): I48.0 - Paroxysmal atrial fibrillation Status: Chronic (3) Chest x-ray abnormality: Code(s): R93.89 - Abnormal findings on diagnostic imaging of other specified body structures Status: Acute Assessment and Plan: diffuse abnormal reticulation seen on chest xray - acute vs chronic based on read pt does not have pulmonary symptoms at the moment suspect some undiagnosed underlying chronic lung issue - plan to obtain Chest CT (4) Hypertension: Code(s): I10 - Essential (primary) hypertension Status: Chronic (5) BPH (benign prostatic hyperplasia): Code(s): N40.0 - Benign prostatic hyperplasia without lower urinary tract symptoms Status: Chronic (6) Anxiety: Code(s): F41.9 - Anxiety disorder, unspecified Status: Chronic Additional Plan Closed intertrochanteric f/x rt hip: POD1 ORIF, pain well controlled, ortho plan on resuming pradaxa today, continue work with PT today and tomorrow; SCD for DVT ppx. Defer to ortho regarding any additional AC. continue IVF with NS, prn norco for pain, although does not seem to be problem at the moment AFib on AC: plan to restart Pradaxa today- this is for paroxysmal AFib, for which he also has watchman device. Appreciate additional cardiology recommendations Code Status: Apparently surgery also discussed code status with him - they are considering DNR after the procedure & post-op period Abnormal CXR: diffuse reticulation on CXR, however patient asymptomatic; may represent undiagnosed underlying lung interstitial disease, will pursue further incl Chest CT and poosible pulm consultiation in post op period Disposition: According to Occupational therapy, he needs to go to inpatient rehab. Daughter would prefer outpatient, but open to inpatient. Time Spent With Patient Time with patient: less than 15 minutes Subjective Date/time seen: 06/09/21 08:54 no acute complaints resting comfortably Review of Systems Review of Systems: All systems reviewed & are unremarkable except as noted in HPI and below Exam Const: General: no acute distress Neck: Neck: no JVD Resp: Effort & Inspection: normal respiratory effort Auscultation: clear to auscultation bilaterally Cardio: Rate: regular rate Rhythm: regular rhythm GI: Inspection: non-distended Objective Data Vital Signs Vital Signs: Vital Signs - 24 hr 06/08/21 14:00 06/08/21 14:30 06/08/21 17:29 Temperature 97.3 F L 97.4 F L 97.9 F Pulse Rate 75 62 91 Respiratory Rate 14 16 20 Blood Pressure 165/84 H 161/85 H 150/88 H Pulse Oximetry 97 100 100 06/08/21 17:45 06/08/21 18:00 06/08/21 18:15 Temperature Pulse Rate 84 79 80 Respiratory Rate 18 18 17 Blood Pressure 156/80 H 157/82 H 147/85 H Pulse Oximetry 100 95 99 06/08/21 18:30 06/08/21 18:40 06/08/21 19:00 Temperature 96.7 F L Pulse Rate 78 79 77 Respiratory Rate 18 16 22 H Blood Pressure 143/75 H 148/80 H 146/75 H Pulse Oximetry 100 100 99 06/08/21 19:30 06/08/21 20:00 06/08/21 20:30 Temperature 97.6 F 97.3 F L Pulse Rate 79 86 83 Respiratory Rate 20 20 Blood Pressure 146/86 H 142/75 H Pulse Oximetry 100 95 100 06/09/21 00:00 06/09/21 00:27 06/09/21 04:00 Temperature 97.0 F L Pulse Rate 91 85 79 Respiratory Rate 18 Blood Pressure 148/77 H Pulse Oximetry 100 06/09/21 04:30 06/09/21 07:59 Temperature 97.8 F 98.2 F Pulse Rate 84 81 Respiratory Rate 18 14 Blood Pressure 133/70 134/83 Pulse Oximetry 98 90 Intake/Output Intake/Output: Intake & Output 06/06/21 06/07/21 06/08/21 06/09/21 23:59 23:59 23:59 23:59 Intake Total 1190 2200 800 Output Total 1340 300 Balance 1190 860 500 Meds/Res
--- NOTE | 2021-06-09 09:58 | PM.PNCARD ---
Progress Note: A&P Assessment and Plan (1) Paroxysmal atrial fibrillation: Code(s): I48.0 - Paroxysmal atrial fibrillation Status: Chronic Assessment and Plan: In sinus rhythm. Resume anticoagulation when able (2) Hypertension: Code(s): I10 - Essential (primary) hypertension Status: Chronic Assessment and Plan: above goal (3) Preop cardiovascular exam: Code(s): Z01.810 - Encounter for preprocedural cardiovascular examination Status: Acute Assessment and Plan: Patient is at low risk of perioperative cardiovascular complications. (4) History of stroke: Code(s): Z86.73 - Personal history of transient ischemic attack (TIA), and cerebral infarction without residual deficits Status: Acute (5) Chronic anticoagulation: Code(s): Z79.01 - terminal block assembler (current) use of anticoagulants Status: Acute Assessment and Plan: Previously on Pradaxa (6) Closed intertrochanteric fracture of right hip: Code(s): S72.141A - Displaced intertrochanteric fracture of right femur, initial encounter for closed fracture Status: Acute Assessment and Plan: Echocardiogram is unremarkable. He is status post surgery. Cardiology to sign off Subjective Date/time seen: 06/09/21 09:58 Review of Systems Review of Systems: All systems reviewed & are unremarkable except as noted in HPI and below Constitutional: Constitutional: Denies fatigue, Denies headache(s) and Reports weakness Eyes: Eyes: Denies blurry vision ENT: Reports Normal hearing present, Denies headache(s) and Denies neck pain Cardiovascular: Cardiovascular: Denies chest pain and Denies dyspnea Respiratory: Respiratory: Denies dyspnea Gastrointestinal: Gastrointestinal: Denies abdominal pain Genitourinary: Genitourinary: Denies dysuria Musculoskeletal: Musculoskeletal: Denies neck pain Integumentary/Breasts: Skin/Breast: Denies dry skin Neurologic: Reports Normal hearing present, Denies headache(s) and Reports weakness Psychiatric: Psychiatric: Denies anxiety Endocrine: Endocrine: Denies fatigue Hematologic/Lymphatic: Hematologic/Lymphatic: Denies easy bleeding Allergic/Immunologic: Allergic/Immunologic: Denies GI upset with certain foods Exam Narrative: Appears stated age Const: General: comfortable and no acute distress HENMT: General nose exam: Normal nares present Eyes: Sclera: sclerae normal Neck: Neck: supple and no JVD Chest: Other: No reproducible chest wall pain to palpation Resp: Auscultation: clear to auscultation bilaterally Cardio: Rate: regular rate Rhythm: regular rhythm GI: Auscultation: normal bowel sounds Skin: General skin exam: normal color Neuro: Cranial nerves: Yes Normal hearing present Cognition (Neuro): normal cognition Extrem: General: no edema Psych: Mental Status: mental status grossly normal Objective Data Vital Signs Vital Signs: Vital Signs - 24 hr 06/08/21 14:00 06/08/21 14:30 06/08/21 17:29 Temperature 36.3 C L 36.3 C L 36.6 C Pulse Rate 75 62 91 Respiratory Rate 14 16 20 Blood Pressure 165/84 H 161/85 H 150/88 H Pulse Oximetry 97 100 100 06/08/21 17:45 06/08/21 18:00 06/08/21 18:15 Temperature Pulse Rate 84 79 80 Respiratory Rate 18 18 17 Blood Pressure 156/80 H 157/82 H 147/85 H Pulse Oximetry 100 95 99 06/08/21 18:30 06/08/21 18:40 06/08/21 19:00 Temperature 35.9 C L Pulse Rate 78 79 77 Respiratory Rate 18 16 22 H Blood Pressure 143/75 H 148/80 H 146/75 H Pulse Oximetry 100 100 99 06/08/21 19:30 06/08/21 20:00 06/08/21 20:30 Temperature 36.4 C 36.3 C L Pulse Rate 79 86 83 Respiratory Rate 20 20 Blood Pressure 146/86 H 142/75 H Pulse Oximetry 100 95 100 06/09/21 00:00 06/09/21 00:27 06/09/21 04:00 Temperature 36.1 C L Pulse Rate 91 85 79 Respiratory Rate 18 Blood Pressure 148/77 H Pulse Oximetry 100 06/09/21 04:30 06/09/21 07:59 Temperature
--- NOTE | 2021-06-09 13:13 | P.PNAN_ITS ---
Anes - Prog Note Post-Op Date/Time: 06/09/21 13:13 Cardiovascular status: normal Respiratory status: normal Airway patency: baseline Mental status: baseline Post-Op hydration status: normal Vital Signs: Last Vital Signs Temp 36.6 C 06/09/21 12:45 Pulse 76 06/09/21 12:45 Resp 12 06/09/21 12:45 BP 129/77 06/09/21 12:45 Pulse Ox 93 06/09/21 12:45 Pain Score (VAS): 2 I/O: Intake & Output 06/08/21 06/09/21 06/09/21 23:59 07:59 15:59 Intake Total 200 800 530 Output Total 240 300 Balance -40 500 530 Laboratory Tests 06/09/21 05:56 06/09/21 05:56 06/09/21 06/09/21 05:56 05:56 WBC 7.4 RBC 3.15 L Hgb 9.9 L Hct 31.2 L MCV 99.0 MCH 31.4 MCHC 31.7 L RDW 15.0 H Plt Count 100 L MPV 9.7 Immature Gran % (Auto) 0.3 Neut % (Auto) 59.8 Lymph % (Auto) 23.1 [place] % (Auto) 11.1 H Eos % (Auto) 5.2 H Baso % (Auto) 0.5 Lymph # (Auto) 1.70 [place] # (Auto) 0.8 H Eos # (Auto) 0.4 H Baso # (Auto) 0.0 Abs Immat Gran (auto) 0.02 Absolute Neuts (auto) 4.4 Absolute Nucleated RBC 0.0 Nucleated RBC % 0.0 Sodium 134 L Potassium 4.2 Chloride 106 Carbon Dioxide 23 Anion Gap 5 L BUN 15 D Creatinine 0.80 Estim Creat Clear Calc 64 Estimated GFR > 60 Glucose 106 Calcium 8.0 L Phosphorus 3.1 Magnesium 1.8 Total Bilirubin 1.0 AST 22 ALT 13 Alkaline Phosphatase 66 Total Protein 5.0 L Albumin 2.7 L Post-procedural complaints: none Patient Feedback: Patient satisfied with anesthetic care.
--- NOTE | 2021-06-09 15:53 | PCCCNOTE ---
On 06/09/21, the student, [Linda Juan ], provided care and completed [email or web address] documentation on this patient. I have reviewed the student's documentation and agree with the findings.
[2021-06-10] VITALS (11 sets, daily range): BP systolic 116–152; BP diastolic 69–82; PULSE 65–79; RESP 16–18; TEMP 36.1–36.4; O2SAT 95–100
[2021-06-10] MEDS: oxyCODONE HCL (*CRX) 2.5 MG TAB IR PO ×3 (02:45→18:17)
[2021-06-10] MEDS: ACETAMINOPHEN 500 MG TABLET 1000 MG PO ×4 (02:45→21:00)
[2021-06-10 06:38] LABS: Basophils Absolute Auto 0.1 K/mm3 (0.0-0.1); Basophils Percent Auto 0.7 % (0.2-1.2); Eosinophils Absolute Auto 0.5 K/mm3 (0-0.3); Eosinophils Percent Auto 6.9 % (0-4.4); Hematocrit 31.3 % (42.0-52.0); Immature Granulocyte Absolute 0.02 K/mm3 (0.00-0.031); Immature Granulocyte Percent A 0.3 % (0-0.5); Lymphocytes Absolute Auto 1.53 K/mm3 (0.9-3.2); Lymphocytes Percent Auto 22.1 % (18.3-44.2); Mean Corpuscular HGB Conc 31.9 g/dl (32-36); Mean Corpuscular Hemoglobin 31.6 pg (26-34); Mean Corpuscular Volume 99.1 fl (80-100); Mean Platelet Volume 10.3 fl (7.4-10.4); Monocytes Absolute Auto 0.9 K/mm3 (0.1-0.6); Monocytes Percent Auto 13.5 % (2.6-8.5); Neutrophils Absolute Auto 3.9 K/mm3 (1.3-6.7); Neutrophils Percent Auto 56.5 % (45.5-73.1); Platelet Count Result 106 k/mm3 (150-375); Red Blood Count 3.16 M/mm3 (4.6-6.20); Red Cell Distribution Width 14.9 % (11.5-14.5); White Blood Count 6.9 K/mm3 (4.5-10.0)
[2021-06-10 07:12] LABS: Alanine Aminotransferase 12 U/L (4-50); Albumin Level 2.9 g/dL (3.5-5.1); Alkaline Phosphatase 72 U/L (38-126); Anion Gap 3 mmol/L (8-16); Aspartate Amino Transferase 22 U/L (17-59); Bilirubin,Total 0.8 mg/dL (0.2-1.3); Blood Urea Nitrogen 15 mg/dL (9-20); Calcium 8.4 mg/dL (8.4-10.2); Carbon Dioxide 28 mmol/L (22-30); Chloride 106 mmol/L (98-107); Estimated CRCL calculation 57 ml/min; Estimated Glomerular Filt Rate > 60; Glucose 99 mg/dL (65-110); Phosphorus 3.4 mg/dL (2.5-4.5); Sodium 137 mmol/L (137-145)
[2021-06-10] MEDS: FINASTERIDE 5 MG TABLET PO (08:40)
[2021-06-10] MEDS: DABIGATRAN ETEXILATE 75 MG CAPSULE PO ×2 (08:40→17:17)
[2021-06-10] MEDS: ESCITALOPRAM OXALATE 5 MG TABLET PO (08:40)
[2021-06-10] MEDS: FAMOTIDINE 20 MG TABLET PO ×2 (08:40→21:00)
[2021-06-10] MEDS: ASPIRIN 81 MG ENTERIC TABLET PO (08:40)
[2021-06-10] MEDS: SENNA/DOCUSATE SODIUM TABLET 2 TAB PO ×2 (08:40→17:17)
[2021-06-10] MEDS: polyethylene glycoL 3350 17 GM POWD.PACK PO (08:40)
--- NOTE | 2021-06-10 12:25 | PM.PNORT ---
Progress Note: A&P Additional Plan Patient is postoperative day 2. After internal fixation of minimally displaced right 2 part intertrochanteric hip fracture with trochanteric nail device. His hemoglobin today is 10.0. His hemoglobin yesterday was 9.9. His Pradaxa was resumed yesterday morning so he has had no drop in hemoglobin with resumption. He has expected acute blood loss anemia from his fracture and surgery. His platelets are 106,000. This is up from 100,000 hundred thousand yesterday and this likely represents consumption. He is afebrile with stable vital signs. Oxygen saturation 100%. On exam he is in good spirits today. He states he is not having any pain. His hip incisions are dry there is no blood on the dressings he has no significant swelling or bruising about the right hip her thigh. His was present and she realizes that she would not be strong enough to help him up from a chair and he will need assistance for I expect between 4 and 6 weeks and therefore plans were being made for inpatient rehabilitation. Subjective Subjective Date/Time Seen: 06/10/21 12:25 Objective Data Vital Signs Vital Signs: Vital Signs - 24 hr 06/09/21 12:45 06/09/21 14:21 06/09/21 16:00 Temperature 36.6 C Pulse Rate 76 73 Respiratory Rate 12 Blood Pressure 129/77 Pulse Oximetry 93 98 06/09/21 16:05 06/09/21 20:00 06/09/21 20:30 Temperature 36.7 C 36.8 C Pulse Rate 77 80 67 Respiratory Rate 12 18 Blood Pressure 131/79 145/86 H Pulse Oximetry 94 98 100 06/10/21 00:00 06/10/21 04:00 06/10/21 08:00 Temperature 36.1 C L Pulse Rate 75 71 65 Respiratory Rate 16 Blood Pressure 152/82 H Pulse Oximetry 100 06/10/21 08:40 Temperature Pulse Rate Respiratory Rate Blood Pressure Pulse Oximetry 100 Intake/Output Intake/Output: Intake & Output 06/07/21 06/08/21 06/09/21 06/10/21 23:59 23:59 23:59 23:59 Intake Total 1190 2200 2250 100 Output Total 1340 300 300 Balance 2918 983 2580 -200 Meds/Results Medications: Active Medications Generic Name Dose Route Start Last Admin Trade Name Freq PRN Reason Stop Dose Admin Acetaminophen 1,000 mg 06/08/21 20:00 06/10/21 08:40 Acetaminophen 500 Mg Tablet PO 1,000 mg Q6H STEPHIE Administration Al Hydrox/Mg Hydrox/Simethicone 30 ml 06/08/21 18:45 Mag Hydrox/Al Hydrox/Simeth 30 Ml Udc PO Q6H PRN Indigestion Aspirin 81 mg 06/09/21 09:00 06/10/21 08:40 Aspirin 81 Mg Enteric Tablet PO 81 mg DAILY STEPHIE Administration Dabigatran 75 mg 06/09/21 09:00 06/10/21 08:40 Dabigatran Etexilate 75 Mg Capsule PO 75 mg BID STEPHIE Administration Escitalopram Oxalate 5 mg 06/08/21 09:00 06/10/21 08:40 Escitalopram Oxalate 5 Mg Tablet PO 5 mg DAILY STEPHIE Administration Famotidine 20 mg 06/08/21 21:00 06/10/21 08:40 Famotidine 20 Mg Tablet PO 20 mg Q12HR STEPHIE Administration Finasteride 5 mg 06/08/21 09:00 06/10/21 08:40 Finasteride 5 Mg Tablet PO 5 mg QAM STEPHIE Administration Hydroxyzine HCl 50 mg 06/08/21 18:45 Hydroxyzine Hcl 25 Mg Tablet PO Q4H PRN Itching Magnesium Hydroxide 30 ml 06/08/21 18:45 Magnesium Hydroxide Susp 30 Ml Udc PO BID PRN Constipation Morphine Sulfate 2 mg 06/08/21 18:45 Morphine Sulfate (*Crx) 2 Mg/Ml Inj IV PUSH Q4H PRN Pain Rated 7-10 Naloxone HCl 0.1 mg 06/08/21 18:45 Naloxone Hcl 0.4 Mg/Ml Vial IV PUSH Q2M PRN Opiate Reversal Ondansetron HCl 4 mg 06/08/21 18:45 Ondansetron Inj 4 Mg/2 Ml Vial IV PUSH Q4H PRN Nausea And Vomiting Oxycodone HCl 2.5 mg 06/08/21 18:45 Oxycodone Hcl (*Crx) 2.5 Mg Tab Ir PO Q4H PRN Pain Rated 4-6 Oxycodone HCl 2.5 mg 06/08/21 18:45 06/10/21 11:06 Oxycodone Hcl (*Crx) 2.5 Mg Tab Ir PO 2.5 mg Q8H STEPHIE Administration Polyethylene Glycol 17 gm 06/09/21 09:00 06/10/21 08:40 Polyethylene Glycol 3350 17 Gm Powd.Pack PO
--- NOTE | 2021-06-10 14:11 | PM.PNCARD ---
Progress Note: A&P Assessment and Plan (1) Paroxysmal atrial fibrillation: Code(s): I48.0 - Paroxysmal atrial fibrillation Status: Chronic Assessment and Plan: In sinus rhythm. Pradaxa resumed. Hematocrit stable. (2) Hypertension: Code(s): I10 - Essential (primary) hypertension Status: Chronic Assessment and Plan: Mildly elevated at times. Continue to follow. (3) History of stroke: Code(s): Z86.73 - Personal history of transient ischemic attack (TIA), and cerebral infarction without residual deficits Status: Acute Assessment and Plan: Has expressive aphasia. 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 Additional Plan Cardiac status stable postop. Cardiology will sign off, please call if we can be of any assistance. Subjective Date/time seen: 06/10/21 14:11 Interval history: Subjective: Patient is a 80-year-old male status post ORIF hip fx. Saw patient for preoperative evaluation. H/O PAF, stroke and aphasia. CAD, stent 2014. Echocardiogram was unremarkable Date of service 06/09/2021: Feeling okay. Denies any chest pain or shortness of breath Date of service 06/10/2021: Feeling okay, no pain at rest. No shortness of breath. Chronic mild cough. Walk 4 ft with physical therapy. Pradaxa resumed yesterday. at bedside. Telemetry shows NSR. Review of Systems Constitutional: Constitutional: Reports no additional constitutional complaints and Denies fatigue Eyes: Eyes: Reports no additional eye complaints ENT: Denies epistaxis Cardiovascular: Cardiovascular: Denies chest pain and Denies leg edema Respiratory: Respiratory: Reports cough (Chronic cough, sinus drainage) and Denies dyspnea Gastrointestinal: Gastrointestinal: Denies abdominal pain Genitourinary: Genitourinary: Denies hematuria Musculoskeletal: Musculoskeletal: Reports arthralgias (Noted during physical therapy) Integumentary/Breasts: Skin/Breast: Denies rash Neurologic: Reports Abnormal speech present Psychiatric: Psychiatric: Reports no additional psychiatric complaints Exam Narrative: Pleasant older male finishing lunch, at the bedside Const: General: comfortable and no acute distress HENMT: General nose exam: no epistaxis Other: Very hard of hearing Eyes: EOM: EOMs intact bilaterally Neck: Neck: supple Resp: Effort & Inspection: normal respiratory effort Auscultation: clear to auscultation bilaterally Other: On O2 Cardio: Rate: regular rate Rhythm: regular rhythm Other: Occasional premature be GI: GI Palp: Yes Soft to palpation and No Tenderness to palpation present (GI) Skin: General skin exam: normal color Wounds: no wounds Neuro: Cognition (Neuro): normal cognition Speech: No normal speech Other: Expressive aphasia Extrem: General: no edema and no pedal edema Psych: Mental Status: mental status grossly normal Affect: normal affect Objective Data Vital Signs Vital Signs: Vital Signs - 24 hr 06/09/21 14:21 06/09/21 16:00 06/09/21 16:05 Temperature 98.1 F Pulse Rate 73 77 Respiratory Rate 12 Blood Pressure 131/79 Pulse Oximetry 98 94 06/09/21 20:00 06/09/21 20:30 06/10/21 00:00 Temperature 98.3 F Pulse Rate 80 67 75 Respiratory Rate 18 Blood Pressure 145/86 H Pulse Oximetry 98 100 06/10/21 04:00 06/10/21 08:00 06/10/21 08:40 Temperature 97.0
--- NOTE | 2021-06-10 18:12 | PM.IMPN ---
Progress Note: A&P Assessment and Plan (1) CAD (coronary artery disease): Qualifiers: Coronary Disease-Associated Artery/Lesion type: [place] artery [place] vs. transplanted heart: [place] heart Associated angina: without angina Qualified Code(s): I25.10 - Atherosclerotic heart disease of [place] coronary artery without angina pectoris Code(s): I25.10 - Atherosclerotic heart disease of [place] coronary artery without angina pectoris Status: Acute (2) Hip fracture due to osteoporosis: Qualifiers: Encounter type: initial encounter Laterality: right Qualified Code(s): M80.051A - Age-related osteoporosis with current pathological fracture, right femur, initial encounter for fracture Code(s): M80.059A - Age-related osteoporosis with current pathological fracture, unspecified femur, initial encounter for fracture Status: Acute (3) History of stroke: Code(s): Z86.73 - Personal history of transient ischemic attack (TIA), and cerebral infarction without residual deficits Status: Acute (4) Preop cardiovascular exam: Code(s): Z01.810 - Encounter for preprocedural cardiovascular examination Status: Acute (5) Hypertension: Qualifiers: Hypertension type: primary hypertension Qualified Code(s): I10 - Essential (primary) hypertension Code(s): I10 - Essential (primary) hypertension Status: Chronic (6) Paroxysmal atrial fibrillation: Code(s): I48.0 - Paroxysmal atrial fibrillation Status: Chronic (7) Allergic rhinitis: Qualifiers: Allergic rhinitis trigger: unspecified Allergic rhinitis seasonality: unspecified Qualified Code(s): J30.9 - Allergic rhinitis, unspecified Code(s): J30.9 - Allergic rhinitis, unspecified Status: Acute (8) Community acquired pneumonia: Qualifiers: Laterality: unspecified laterality Qualified Code(s): J18.9 - Pneumonia, unspecified organism Code(s): J18.9 - Pneumonia, unspecified organism Status: Acute (9) Thrombocytopenia: Code(s): D69.6 - Thrombocytopenia, unspecified Status: Acute (10) Acute blood loss anemia: Code(s): D62 - Acute posthemorrhagic anemia Status: Acute (11) Acute respiratory failure with hypoxia: Code(s): J96.01 - Acute respiratory failure with hypoxia Status: Acute (12) Closed intertrochanteric fracture of right hip: Qualifiers: Encounter type: initial encounter Fracture alignment: displaced Qualified Code(s): S72.141A - Displaced intertrochanteric fracture of right femur, initial encounter for closed fracture Code(s): S72.141A - Displaced intertrochanteric fracture of right femur, initial encounter for closed fracture Status: Acute (13) Diastolic heart failure: Qualifiers: Heart failure chronicity: acute on chronic Qualified Code(s): I50.33 - Acute on chronic diastolic (congestive) heart failure Code(s): I50.30 - Unspecified diastolic (congestive) heart failure Status: Acute Additional Plan 1. Acute hypoxic respiratory failure -started on 2 L nasal cannula -chest x-ray consistent with pneumonia -will start on Levaquin -also concerns for fluid overload given history of diastolic heart failure-possibly acute on chronic exacerbation -will start patient on Lasix 20 mg x 1. As patient is Lasix naive -encourage incentive spirometry -send BNP 2. Status post ORIF of the right femur: -working with therapy -patient is not on any DVT prophylaxis at this time. -however it is noted that the patient is on aspirin and Pradaxa for his CAD -will give 1 dose of Lovenox tomorrow a.m. and discussed with Cardiology and Orthopedics regarding continuation of his DVT prophylaxis for this patient on dual anti-platelet therapy 3. Thrombocytopenia: -possibly reactive or secondary to infection as above -continue to monitor 4. Acute blood loss anemia: -secondary to
[2021-06-10] MEDS: FUROSEMIDE INJ 40 MG/4 ML VIAL 20 MG IV PUSH (18:39)
[2021-06-11] VITALS (8 sets, daily range): BP systolic 107–112; BP diastolic 53–67; PULSE 68–84; RESP 17–18; TEMP 36.7–37.8; O2SAT 94–100
[2021-06-11] MEDS: oxyCODONE HCL (*CRX) 2.5 MG TAB IR PO ×3 (02:49→18:05)
[2021-06-11] MEDS: ACETAMINOPHEN 500 MG TABLET 1000 MG PO ×4 (02:49→20:43)
[2021-06-11 06:26] LABS: Basophils Absolute Auto 0.1 K/mm3 (0.0-0.1); Basophils Percent Auto 0.9 % (0.2-1.2); Eosinophils Absolute Auto 0.4 K/mm3 (0-0.3); Eosinophils Percent Auto 5.8 % (0-4.4); Hematocrit 29.3 % (42.0-52.0); Hemoglobin 9.1 g/dL (14.0-18.0); Immature Granulocyte Absolute 0.02 K/mm3 (0.00-0.031); Immature Granulocyte Percent A 0.3 % (0-0.5); Lymphocytes Absolute Auto 1.72 K/mm3 (0.9-3.2); Lymphocytes Percent Auto 25.4 % (18.3-44.2); Mean Corpuscular HGB Conc 31.1 g/dl (32-36); Mean Corpuscular Hemoglobin 31.5 pg (26-34); Mean Corpuscular Volume 101.4 fl (80-100); Mean Platelet Volume 10.6 fl (7.4-10.4); Monocytes Absolute Auto 0.9 K/mm3 (0.1-0.6); Monocytes Percent Auto 13.3 % (2.6-8.5); Neutrophils Absolute Auto 3.7 K/mm3 (1.3-6.7); Neutrophils Percent Auto 54.3 % (45.5-73.1); Platelet Count Result 131 k/mm3 (150-375); Red Blood Count 2.89 M/mm3 (4.6-6.20); Red Cell Distribution Width 15.1 % (11.5-14.5); White Blood Count 6.8 K/mm3 (4.5-10.0)
[2021-06-11 06:40] LABS: Potassium 4.1 mmol/L (3.4-5.0)
[2021-06-11 06:44] LABS: NT Pro B Type Natriuretic Pept 307 pg/mL (5-100)
[2021-06-11 06:48] LABS: Alanine Aminotransferase 11 U/L (4-50); Albumin Level 2.6 g/dL (3.5-5.1); Alkaline Phosphatase 68 U/L (38-126); Anion Gap 5 mmol/L (8-16); Aspartate Amino Transferase 22 U/L (17-59); Bilirubin,Total 0.6 mg/dL (0.2-1.3); Blood Urea Nitrogen 20 mg/dL (9-20); CRP 8.3 mg/dL (<1.0); Calcium 8.2 mg/dL (8.4-10.2); Carbon Dioxide 26 mmol/L (22-30); Chloride 105 mmol/L (98-107); Estimated CRCL calculation 52 ml/min; Estimated Glomerular Filt Rate > 60; Glucose 96 mg/dL (65-110); Sodium 136 mmol/L (137-145)
[2021-06-11] MEDS: DABIGATRAN ETEXILATE 75 MG CAPSULE PO ×2 (08:33→18:05)
[2021-06-11] MEDS: FAMOTIDINE 20 MG TABLET PO ×2 (08:33→20:43)
[2021-06-11] MEDS: POTASSIUM CHLORIDE 10 MEQ TABLET PO (08:33)
[2021-06-11] MEDS: ESCITALOPRAM OXALATE 5 MG TABLET PO (08:33)
[2021-06-11] MEDS: ASPIRIN 81 MG ENTERIC TABLET PO (08:33)
[2021-06-11] MEDS: FINASTERIDE 5 MG TABLET PO (08:33)
[2021-06-11] MEDS: SENNA/DOCUSATE SODIUM TABLET 2 TAB PO ×2 (08:33→18:05)
[2021-06-11] MEDS: polyethylene glycoL 3350 17 GM POWD.PACK PO (08:33)
--- NOTE | 2021-06-11 09:16 | PM.PNORT ---
Progress Note: A&P Time Spent With Patient Time: Patient is postoperative day 3 after internal fixation of right intertrochanteric hip fracture. His hemoglobin is a little lower today 9.1. Platelets up to 131,000. This is not surprising with this fracture. He remains afebrile with stable vital signs. Chest x-ray yesterday showed bibasilar airspace disease consistent with pneumonia and he has been started on Levaquin. O2 sat 94-100%. White count normal at 6.8. He has right-sided hemiplegia. He is able to grasp the walker well with his right hand but is having a hard time with transfers max assist of 1 therapist. It is hard for him to follow the commands and sequencing. However, he was able to focus on the therapist and follow commands with respect to moving his left foot for. He does seem to be making some progress. Subjective Subjective Date/Time Seen: 06/11/21 09:16 Objective Data Vital Signs Vital Signs: Vital Signs - 24 hr 06/10/21 12:00 06/10/21 14:00 06/10/21 16:00 Temperature 36.3 C L Pulse Rate 79 77 74 Respiratory Rate 18 Blood Pressure 116/69 Pulse Oximetry 100 06/10/21 16:25 06/10/21 19:03 06/10/21 20:00 Temperature Pulse Rate 74 Respiratory Rate Blood Pressure Pulse Oximetry 100 95 06/10/21 21:57 06/11/21 00:00 06/11/21 04:00 Temperature 36.4 C Pulse Rate 70 74 81 Respiratory Rate 17 Blood Pressure 129/73 Pulse Oximetry 97 06/11/21 05:53 Temperature 37.8 C H Pulse Rate 83 Respiratory Rate 17 Blood Pressure 107/53 L Pulse Oximetry 94 Intake/Output Intake/Output: Intake & Output 06/08/21 06/09/21 06/10/21 06/11/21 23:59 23:59 23:59 23:59 Intake Total 2200 2250 1000 Output Total 1340 300 600 Balance 860 1950 400 Meds/Results Medications: Active Medications Generic Name Dose Route Start Last Admin Trade Name Freq PRN Reason Stop Dose Admin Acetaminophen 1,000 mg 06/08/21 20:00 06/11/21 08:33 Acetaminophen 500 Mg Tablet PO 1,000 mg Q6H STEPHIE Administration Al Hydrox/Mg Hydrox/Simethicone 30 ml 06/08/21 18:45 Mag Hydrox/Al Hydrox/Simeth 30 Ml Udc PO Q6H PRN Indigestion Aspirin 81 mg 06/09/21 09:00 06/11/21 08:33 Aspirin 81 Mg Enteric Tablet PO 81 mg DAILY STEPHIE Administration Dabigatran 75 mg 06/09/21 09:00 06/11/21 08:33 Dabigatran Etexilate 75 Mg Capsule PO 75 mg BID [facility] Administration Escitalopram Oxalate 5 mg 06/08/21 09:00 06/11/21 08:33 Escitalopram Oxalate 5 Mg Tablet PO 5 mg DAILY STEPHIE Administration Famotidine 20 mg 06/08/21 21:00 06/11/21 08:33 Famotidine 20 Mg Tablet PO 20 mg Q12HR STEPHIE Administration Finasteride 5 mg 06/08/21 09:00 06/11/21 08:33 Finasteride 5 Mg Tablet PO 5 mg QAM STEPHIE Administration Furosemide 20 mg 06/11/21 09:00 Furosemide 20 Mg Tablet PO DAILY [facility] Hydroxyzine HCl 50 mg 06/08/21 18:45 Hydroxyzine Hcl 25 Mg Tablet PO Q4H PRN Itching Levofloxacin/Dextrose 750 mg in 150 mls @ 100 mls/hr 06/10/21 19:00 06/10/21 21:00 Levaquin 750 Mg/D5w 150 Ml IVPB 100 mls/hr Q24H STEPHIE Administration Magnesium Hydroxide 30 ml 06/08/21 18:45 Magnesium Hydroxide Susp 30 Ml Udc PO BID PRN Constipation Morphine Sulfate 2 mg 06/08/21 18:45 Morphine Sulfate (*Crx) 2 Mg/Ml Inj IV PUSH Q4H PRN Pain Rated 7-10 Naloxone HCl 0.1 mg 06/08/21 18:45 Naloxone Hcl 0.4 Mg/Ml Vial IV PUSH Q2M PRN Opiate Reversal Ondansetron HCl 4 mg 06/08/21 18:45 Ondansetron Inj 4 Mg/2 Ml Vial IV PUSH Q4H PRN Nausea And Vomiting Oxycodone HCl 2.5 mg 06/08/21 18:45 Oxycodone Hcl (*Crx) 2.5 Mg Tab Ir PO Q4H PRN Pain Rated 4-6 Oxycodone HCl 2.5 mg 06/08/21 18:45 06/11/21 02:49 Oxycodone Hcl (*Crx) 2.5 Mg Tab Ir PO 2.5 mg Q8H STEPHIE Administration Polyethylene Glycol 17 gm 06/09/21 09:00 06/11/21 08:33 Polyethylene Glycol 3350 17 Gm Powd.Pack
[2021-06-11 10:09] LABS: Erythrocyte Sedimentation Rate 52 mm/hr (0-20)
[2021-06-11 10:55] LABS: Folic Acid 14.3 ng/mL (2.76->20)
[2021-06-11] MEDS: FUROSEMIDE 20 MG TABLET PO (11:02)
[2021-06-11 11:09] LABS: Iron 27 ug/dL (49-181)
[2021-06-11 11:18] LABS: Percent Iron Saturation 10 % (20-50)
--- NOTE | 2021-06-11 17:30 | PM.IMPN ---
Progress Note: A&P Assessment and Plan (1) Diastolic heart failure: Qualifiers: Heart failure chronicity: acute on chronic Qualified Code(s): I50.33 - Acute on chronic diastolic (congestive) heart failure Code(s): I50.30 - Unspecified diastolic (congestive) heart failure Status: Acute (2) Acute respiratory failure with hypoxia: Code(s): J96.01 - Acute respiratory failure with hypoxia Status: Acute (3) Acute blood loss anemia: Code(s): D62 - Acute posthemorrhagic anemia Status: Acute (4) Thrombocytopenia: Code(s): D69.6 - Thrombocytopenia, unspecified Status: Acute (5) Community acquired pneumonia: Qualifiers: Laterality: unspecified laterality Qualified Code(s): J18.9 - Pneumonia, unspecified organism Code(s): J18.9 - Pneumonia, unspecified organism Status: Acute (6) CAD (coronary artery disease): Qualifiers: Coronary Disease-Associated Artery/Lesion type: [place] artery [place] vs. transplanted heart: [place] heart Associated angina: without angina Qualified Code(s): I25.10 - Atherosclerotic heart disease of [place] coronary artery without angina pectoris Code(s): I25.10 - Atherosclerotic heart disease of [place] coronary artery without angina pectoris Status: Acute (7) Hip fracture due to osteoporosis: Qualifiers: Encounter type: initial encounter Laterality: right Qualified Code(s): M80.051A - Age-related osteoporosis with current pathological fracture, right femur, initial encounter for fracture Code(s): M80.059A - Age-related osteoporosis with current pathological fracture, unspecified femur, initial encounter for fracture Status: Acute (8) Chronic anticoagulation: Code(s): Z79.01 - termite renewal inspector (current) use of anticoagulants Status: Acute (9) History of stroke: Code(s): Z86.73 - Personal history of transient ischemic attack (TIA), and cerebral infarction without residual deficits Status: Acute (10) BPH (benign prostatic hyperplasia): Qualifiers: Lower urinary tract symptom presence: symptoms present Lower urinary tract symptom detail: unspecified Qualified Code(s): N40.1 - Benign prostatic hyperplasia with lower urinary tract symptoms Code(s): N40.0 - Benign prostatic hyperplasia without lower urinary tract symptoms Status: Chronic (11) Anxiety: Code(s): F41.9 - Anxiety disorder, unspecified Status: Chronic (12) Hypertension: Qualifiers: Hypertension type: primary hypertension Qualified Code(s): I10 - Essential (primary) hypertension Code(s): I10 - Essential (primary) hypertension Status: Chronic (13) Paroxysmal atrial fibrillation: Code(s): I48.0 - Paroxysmal atrial fibrillation Status: Chronic (14) Closed intertrochanteric fracture of right hip: Qualifiers: Encounter type: initial encounter Fracture alignment: displaced Qualified Code(s): S72.141A - Displaced intertrochanteric fracture of right femur, initial encounter for closed fracture Code(s): S72.141A - Displaced intertrochanteric fracture of right femur, initial encounter for closed fracture Status: Acute Additional Plan Continue IV Levaquin Continue Lasix 20 mg daily Incentive spirometry 3 encourage BNP 300 Subjective Date/time seen: 06/11/21 17:30 Interval history: 80-year-old male with past medical history significant for CVA with residual right-sided weakness, history of esophageal cancer status post esophagectomy, anxiety, BPH, hypertension, hyperlipidemia AR, atrial fibrillation status post Watchman device presented status post fall and was noted to have right-sided intertrochanteric fracture. He is status post open reduction internal fixation of right intertrochanteric hip fracture on 06/08. His postop course was complicated by acute hypoxic respiratory failure requiring 2 L of zack
[2021-06-12] VITALS: PULSE 71
[2021-06-12] MEDS: ACETAMINOPHEN 500 MG TABLET 1000 MG PO ×4 (02:25→21:07)
[2021-06-12] MEDS: oxyCODONE HCL (*CRX) 2.5 MG TAB IR PO ×3 (02:26→18:19)
[2021-06-12 04:00] VITALS: PULSE 72
[2021-06-12 05:53] LABS: Basophils Absolute Auto 0.1 K/mm3 (0.0-0.1); Basophils Percent Auto 0.8 % (0.2-1.2); Eosinophils Absolute Auto 0.3 K/mm3 (0-0.3); Eosinophils Percent Auto 4.8 % (0-4.4); Hematocrit 27.6 % (42.0-52.0); Hemoglobin 9.1 g/dL (14.0-18.0); Immature Granulocyte Absolute 0.01 K/mm3 (0.00-0.031); Immature Granulocyte Percent A 0.2 % (0-0.5); Lymphocytes Absolute Auto 1.89 K/mm3 (0.9-3.2); Lymphocytes Percent Auto 28.6 % (18.3-44.2); Mean Corpuscular Hemoglobin 31.5 pg (26-34); Mean Corpuscular Volume 95.5 fl (80-100); Mean Platelet Volume 9.2 fl (7.4-10.4); Monocytes Absolute Auto 0.8 K/mm3 (0.1-0.6); Monocytes Percent Auto 12.3 % (2.6-8.5); Neutrophils Absolute Auto 3.5 K/mm3 (1.3-6.7); Neutrophils Percent Auto 53.3 % (45.5-73.1); Platelet Count Result 146 k/mm3 (150-375); Red Blood Count 2.89 M/mm3 (4.6-6.20); Red Cell Distribution Width 15.1 % (11.5-14.5); White Blood Count 6.6 K/mm3 (4.5-10.0)
[2021-06-12 05:57] LABS: Alanine Aminotransferase 13 U/L (4-50); Albumin Level 2.9 g/dL (3.5-5.1); Alkaline Phosphatase 66 U/L (38-126); Anion Gap 3 mmol/L (8-16); Aspartate Amino Transferase 24 U/L (17-59); Bilirubin,Total 0.7 mg/dL (0.2-1.3); Blood Urea Nitrogen 22 mg/dL (9-20); Calcium 8.1 mg/dL (8.4-10.2); Carbon Dioxide 29 mmol/L (22-30); Chloride 104 mmol/L (98-107); Estimated CRCL calculation 57 ml/min; Estimated Glomerular Filt Rate > 60; Glucose 111 mg/dL (65-110); Potassium 4.4 mmol/L (3.4-5.0); Sodium 136 mmol/L (137-145)
[2021-06-12 08:00] VITALS: PULSE 62; RESP 18; O2SAT 100
[2021-06-12] MEDS: ASPIRIN 81 MG ENTERIC TABLET PO (08:36)
[2021-06-12] MEDS: FINASTERIDE 5 MG TABLET PO (08:36)
[2021-06-12] MEDS: DABIGATRAN ETEXILATE 75 MG CAPSULE PO ×2 (08:36→16:29)
[2021-06-12] MEDS: SENNA/DOCUSATE SODIUM TABLET 2 TAB PO ×2 (08:37→16:29)
[2021-06-12] MEDS: FAMOTIDINE 20 MG TABLET PO ×2 (08:37→21:08)
[2021-06-12] MEDS: polyethylene glycoL 3350 17 GM POWD.PACK PO (08:37)
[2021-06-12] MEDS: FUROSEMIDE 20 MG TABLET PO (08:37)
[2021-06-12] MEDS: ESCITALOPRAM OXALATE 5 MG TABLET PO (08:37)
--- NOTE | 2021-06-12 18:23 | PM.IMPN ---
Progress Note: A&P Assessment and Plan (1) Acute respiratory failure with hypoxia: Code(s): J96.01 - Acute respiratory failure with hypoxia Status: Resolved (2) Diastolic heart failure: Qualifiers: Heart failure chronicity: acute on chronic Qualified Code(s): I50.33 - Acute on chronic diastolic (congestive) heart failure Code(s): I50.30 - Unspecified diastolic (congestive) heart failure Status: Acute (3) Acute blood loss anemia: Code(s): D62 - Acute posthemorrhagic anemia Status: Resolved (4) Community acquired pneumonia: Qualifiers: Laterality: unspecified laterality Qualified Code(s): J18.9 - Pneumonia, unspecified organism Code(s): J18.9 - Pneumonia, unspecified organism Status: Acute (5) CAD (coronary artery disease): Qualifiers: Coronary Disease-Associated Artery/Lesion type: [place] artery [place] vs. transplanted heart: [place] heart Associated angina: without angina Qualified Code(s): I25.10 - Atherosclerotic heart disease of [place] coronary artery without angina pectoris Code(s): I25.10 - Atherosclerotic heart disease of [place] coronary artery without angina pectoris Status: Acute (6) Hip fracture due to osteoporosis: Qualifiers: Encounter type: initial encounter Laterality: right Qualified Code(s): M80.051A - Age-related osteoporosis with current pathological fracture, right femur, initial encounter for fracture Code(s): M80.059A - Age-related osteoporosis with current pathological fracture, unspecified femur, initial encounter for fracture Status: Acute (7) History of stroke: Code(s): Z86.73 - Personal history of transient ischemic attack (TIA), and cerebral infarction without residual deficits Status: Acute (8) BPH (benign prostatic hyperplasia): Qualifiers: Lower urinary tract symptom presence: symptoms present Lower urinary tract symptom detail: unspecified Qualified Code(s): N40.1 - Benign prostatic hyperplasia with lower urinary tract symptoms Code(s): N40.0 - Benign prostatic hyperplasia without lower urinary tract symptoms Status: Chronic (9) Hypertension: Qualifiers: Hypertension type: primary hypertension Qualified Code(s): I10 - Essential (primary) hypertension Code(s): I10 - Essential (primary) hypertension Status: Chronic (10) Anxiety: Code(s): F41.9 - Anxiety disorder, unspecified Status: Chronic (11) Paroxysmal atrial fibrillation: Code(s): I48.0 - Paroxysmal atrial fibrillation Status: Chronic (12) Closed intertrochanteric fracture of right hip: Qualifiers: Encounter type: initial encounter Fracture alignment: displaced Qualified Code(s): S72.141A - Displaced intertrochanteric fracture of right femur, initial encounter for closed fracture Code(s): S72.141A - Displaced intertrochanteric fracture of right femur, initial encounter for closed fracture Status: Acute (13) Impacted cerumen of both ears: Code(s): H61.23 - Impacted cerumen, bilateral Status: Acute (14) Fall: Qualifiers: Encounter type: initial encounter Qualified Code(s): W19.XXXA - Unspecified fall, initial encounter Code(s): W19.XXXA - Unspecified fall, initial encounter Status: Acute (15) GERD (gastroesophageal reflux disease): Qualifiers: Esophagitis presence: esophagitis presence not specified Qualified Code(s): K21.9 - Gastro-esophageal reflux disease without esophagitis Code(s): K21.9 - Gastro-esophageal reflux disease without esophagitis Status: Acute Additional Plan Remains med particularly stable and is okay to be discharged once insurance authorization is completed. Time Spent With Patient Time with patient: 15 - 25 minutes Subjective Date/time seen: 06/12/21 18:23 Interval history: 80-year-old male with past medic
[2021-06-12 20:25] VITALS: PULSE 62; RESP 18; O2SAT 95
[2021-06-12 22:00] VITALS: BP 117/71; PULSE 73; RESP 16; TEMP 36.2; O2SAT 97
[2021-06-13] MEDS: oxyCODONE HCL (*CRX) 2.5 MG TAB IR PO ×3 (02:05→18:07)
[2021-06-13] MEDS: ACETAMINOPHEN 500 MG TABLET 1000 MG PO ×4 (02:05→20:10)
[2021-06-13 05:40] VITALS: BP 141/66; PULSE 73; RESP 18; TEMP 36.3; O2SAT 99
[2021-06-13 06:06] LABS: Basophils Absolute Auto 0.1 K/mm3 (0.0-0.1); Eosinophils Absolute Auto 0.4 K/mm3 (0-0.3); Eosinophils Percent Auto 5.2 % (0-4.4); Hematocrit 29.2 % (42.0-52.0); Hemoglobin 9.4 g/dL (14.0-18.0); Immature Granulocyte Absolute 0.03 K/mm3 (0.00-0.031); Immature Granulocyte Percent A 0.4 % (0-0.5); Lymphocytes Percent Auto 32.5 % (18.3-44.2); Mean Corpuscular HGB Conc 32.2 g/dl (32-36); Mean Corpuscular Hemoglobin 31.1 pg (26-34); Mean Corpuscular Volume 96.7 fl (80-100); Mean Platelet Volume 9.5 fl (7.4-10.4); Monocytes Absolute Auto 0.8 K/mm3 (0.1-0.6); Monocytes Percent Auto 11.7 % (2.6-8.5); Neutrophils Absolute Auto 3.3 K/mm3 (1.3-6.7); Neutrophils Percent Auto 49.2 % (45.5-73.1); Platelet Count Result 174 k/mm3 (150-375); Red Blood Count 3.02 M/mm3 (4.6-6.20); Red Cell Distribution Width 15.4 % (11.5-14.5); White Blood Count 6.8 K/mm3 (4.5-10.0)
[2021-06-13 06:13] LABS: Alanine Aminotransferase 14 U/L (4-50); Albumin Level 3.1 g/dL (3.5-5.1); Alkaline Phosphatase 78 U/L (38-126); Anion Gap 4 mmol/L (8-16); Aspartate Amino Transferase 27 U/L (17-59); Bilirubin,Total 0.7 mg/dL (0.2-1.3); Blood Urea Nitrogen 21 mg/dL (9-20); Calcium 8.7 mg/dL (8.4-10.2); Carbon Dioxide 32 mmol/L (22-30); Chloride 103 mmol/L (98-107); Estimated CRCL calculation 57 ml/min; Estimated Glomerular Filt Rate > 60; Glucose 105 mg/dL (65-110); Potassium 4.2 mmol/L (3.4-5.0); Sodium 139 mmol/L (137-145)
--- NOTE | 2021-06-13 06:30 | PM.PNORT ---
Progress Note: A&P Additional Plan Patient is postoperative day 5. After internal fixation of right intertrochanteric hip fracture. His pulmonary congestion with infiltrate consistent with pneumonia seems to be improving. He is feeling well. He is on Levaquin and discharge plans are being made for senior care facility for rehab. His wounds were dry his no significant leg swelling. He denies any pain in the right hip and I have repositioned his right leg today and he was comfortable without. He is more conversant this morning. He states that he is doing better working with physical therapy and standing with a walker. His labs are pending this morning. His hemoglobin last 2 mornings was 9.1. Subjective Subjective Date/Time Seen: 06/13/21 06:30 Objective Data Vital Signs Vital Signs: Vital Signs - 24 hr 06/12/21 08:00 06/12/21 20:25 06/12/21 22:00 Temperature 36.2 C L Pulse Rate 62 62 73 Respiratory Rate 18 18 16 Blood Pressure 117/71 Pulse Oximetry 100 95 97 06/13/21 05:40 Temperature 36.3 C L Pulse Rate 73 Respiratory Rate 18 Blood Pressure 141/66 H Pulse Oximetry 99 Intake/Output Intake/Output: Intake & Output 06/10/21 06/11/21 06/12/21 06/13/21 23:59 23:59 23:59 23:59 Intake Total 8856 911 4823 Output Total 600 400 Balance 588 707 8605 Meds/Results Medications: Active Medications Generic Name Dose Route Start Last Admin Trade Name Freq PRN Reason Stop Dose Admin Acetaminophen 1,000 mg 06/08/21 20:00 06/13/21 02:05 Acetaminophen 500 Mg Tablet PO 1,000 mg Q6H STEPHIE Administration Al Hydrox/Mg Hydrox/Simethicone 30 ml 06/08/21 18:45 Mag Hydrox/Al Hydrox/Simeth 30 Ml Udc PO Q6H PRN Indigestion Aspirin 81 mg 06/09/21 09:00 06/12/21 08:36 Aspirin 81 Mg Enteric Tablet PO 81 mg DAILY STEPHIE Administration Dabigatran 75 mg 06/09/21 09:00 06/12/21 16:29 Dabigatran Etexilate 75 Mg Capsule PO 75 mg BID STEPHIE Administration Escitalopram Oxalate 5 mg 06/08/21 09:00 06/12/21 08:37 Escitalopram Oxalate 5 Mg Tablet PO 5 mg DAILY STEPHIE Administration Famotidine 20 mg 06/08/21 21:00 06/12/21 21:08 Famotidine 20 Mg Tablet PO 20 mg Q12HR STEPHIE Administration Finasteride 5 mg 06/08/21 09:00 06/12/21 08:36 Finasteride 5 Mg Tablet PO 5 mg QAM STEPHIE Administration Furosemide 20 mg 06/11/21 09:00 06/12/21 08:37 Furosemide 20 Mg Tablet PO 20 mg DAILY STEPHIE Administration Hydroxyzine HCl 50 mg 06/08/21 18:45 Hydroxyzine Hcl 25 Mg Tablet PO Q4H PRN Itching Levofloxacin/Dextrose 750 mg in 150 mls @ 100 mls/hr 06/10/21 19:00 06/12/21 19:47 Levaquin 750 Mg/D5w 150 Ml IVPB Infused Q24H STEPHIE Infusion Magnesium Hydroxide 30 ml 06/08/21 18:45 Magnesium Hydroxide Susp 30 Ml Udc PO BID PRN Constipation Morphine Sulfate 2 mg 06/08/21 18:45 Morphine Sulfate (*Crx) 2 Mg/Ml Inj IV PUSH Q4H PRN Pain Rated 7-10 Naloxone HCl 0.1 mg 06/08/21 18:45 Naloxone Hcl 0.4 Mg/Ml Vial IV PUSH Q2M PRN Opiate Reversal Ondansetron HCl 4 mg 06/08/21 18:45 Ondansetron Inj 4 Mg/2 Ml Vial IV PUSH Q4H PRN Nausea And Vomiting Oxycodone HCl 2.5 mg 06/08/21 18:45 Oxycodone Hcl (*Crx) 2.5 Mg Tab Ir PO Q4H PRN Pain Rated 4-6 Oxycodone HCl 2.5 mg 06/08/21 18:45 06/13/21 02:05 Oxycodone Hcl (*Crx) 2.5 Mg Tab Ir PO 2.5 mg Q8H STEPHIE Administration Polyethylene Glycol 17 gm 06/09/21 09:00 06/12/21 08:37 Polyethylene Glycol 3350 17 Gm Powd.Pack PO 17 gm QAM STEPHIE Administration Potassium Chloride 10 meq 06/09/21 08:00 06/11/21 08:33 Potassium Chloride 10 Meq Tablet PO 10 meq Q48H STEPHIE Administration Senna/Docusate Sodium 2 tab 06/09/21 09:00 06/12/21 16:29 Senna/Docusate Sodium Tablet PO 2 tab BID STEPHIE Administration Radiology Results: ITS Impressions Cervical Spine CT 06/07/21 08:33 IMPRESSION: 1. No
[2021-06-13] MEDS: SENNA/DOCUSATE SODIUM TABLET 2 TAB PO ×2 (07:52→16:31)
[2021-06-13] MEDS: polyethylene glycoL 3350 17 GM POWD.PACK PO (07:53)
[2021-06-13] MEDS: ASPIRIN 81 MG ENTERIC TABLET PO (07:53)
[2021-06-13] MEDS: FINASTERIDE 5 MG TABLET PO (07:53)
[2021-06-13] MEDS: ESCITALOPRAM OXALATE 5 MG TABLET PO (07:53)
[2021-06-13] MEDS: FAMOTIDINE 20 MG TABLET PO ×2 (07:53→20:10)
[2021-06-13] MEDS: POTASSIUM CHLORIDE 10 MEQ TABLET PO (07:53)
[2021-06-13] MEDS: DABIGATRAN ETEXILATE 75 MG CAPSULE PO ×2 (07:53→16:32)
[2021-06-13] MEDS: FUROSEMIDE 20 MG TABLET PO (07:54)
[2021-06-13 08:00] VITALS: PULSE 73; RESP 18; O2SAT 99
[2021-06-13 09:00] VITALS: BP 106/58; PULSE 77; RESP 18; TEMP 35.8; O2SAT 98
--- NOTE | 2021-06-13 09:56 | PCNFU ---
Nutrition Follow-Up Complete: Involuntary weight loss related to decreased appetite as evidenced by reported and documented weight loss (8.8% x 5-6 months). Goal: Patient to consume 75% of meals/supplements or greater. Patient has met goal. No new goal. Pt current nutrition is Heart Healthy with Ensure compact BID. Last recorded weight is 82 kg, up from 68.2 kg on admit. Bowel Motility:+BM reported 06/12 Labs Reviewed:BUN 21, Alb 3.1,Hgb 9.4,Hct 29.2 Meds Noted:Senokot, Miralax, KCL, Roxicodone, Pepcid, Lexapro, Proscar. Additional Notes: Nutrition follow up. Patient seen today, states food is good. Oral intake 75-100% of meals. Diet supplements of Ensure compact is providing patient with an additional 220 kcals and 9 gms protein. Agree with diet orders. Monitoring: Follow up in 7 days.
--- NOTE | 2021-06-13 10:41 | PC.NURSE ---
On 06/13/21, the student, [ Sharon Smith], provided care and completed [facility] documentation on this patient. I have reviewed the student's documentation and agree with the findings.
[2021-06-13 14:00] VITALS: BP 113/61; PULSE 78; RESP 20; TEMP 36.5; O2SAT 99
--- NOTE | 2021-06-13 14:03 | PM.IMPN ---
Progress Note: A&P Assessment and Plan (1) Diastolic heart failure: Qualifiers: Heart failure chronicity: acute on chronic Qualified Code(s): I50.33 - Acute on chronic diastolic (congestive) heart failure Code(s): I50.30 - Unspecified diastolic (congestive) heart failure Status: Acute (2) Acute respiratory failure with hypoxia: Code(s): J96.01 - Acute respiratory failure with hypoxia Status: Resolved (3) Acute blood loss anemia: Code(s): D62 - Acute posthemorrhagic anemia Status: Resolved (4) Community acquired pneumonia: Qualifiers: Laterality: unspecified laterality Qualified Code(s): J18.9 - Pneumonia, unspecified organism Code(s): J18.9 - Pneumonia, unspecified organism Status: Acute (5) CAD (coronary artery disease): Qualifiers: Coronary Disease-Associated Artery/Lesion type: [place] artery [place] vs. transplanted heart: [place] heart Associated angina: without angina Qualified Code(s): I25.10 - Atherosclerotic heart disease of [place] coronary artery without angina pectoris Code(s): I25.10 - Atherosclerotic heart disease of [place] coronary artery without angina pectoris Status: Acute (6) History of stroke: Code(s): Z86.73 - Personal history of transient ischemic attack (TIA), and cerebral infarction without residual deficits Status: Acute (7) Chronic anticoagulation: Code(s): Z79.01 - nursing home (current) use of anticoagulants Status: Acute (8) BPH (benign prostatic hyperplasia): Qualifiers: Lower urinary tract symptom presence: symptoms present Lower urinary tract symptom detail: unspecified Qualified Code(s): N40.1 - Benign prostatic hyperplasia with lower urinary tract symptoms Code(s): N40.0 - Benign prostatic hyperplasia without lower urinary tract symptoms Status: Chronic (9) Anxiety: Code(s): F41.9 - Anxiety disorder, unspecified Status: Chronic (10) Closed intertrochanteric fracture of right hip: Qualifiers: Encounter type: initial encounter Fracture alignment: displaced Qualified Code(s): S72.141A - Displaced intertrochanteric fracture of right femur, initial encounter for closed fracture Code(s): S72.141A - Displaced intertrochanteric fracture of right femur, initial encounter for closed fracture Status: Acute (11) Paroxysmal atrial fibrillation: Code(s): I48.0 - Paroxysmal atrial fibrillation Status: Chronic (12) GERD (gastroesophageal reflux disease): Qualifiers: Esophagitis presence: esophagitis presence not specified Qualified Code(s): K21.9 - Gastro-esophageal reflux disease without esophagitis Code(s): K21.9 - Gastro-esophageal reflux disease without esophagitis Status: Acute (13) 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 Currently patient is noted to be improving and is off off oxygen, waiting insurance authorization for rehab placement. Time Spent With Patient Time with patient: 15 - 25 minutes Subjective Date/time seen: 06/13/21 14:03 Interval history: 80-year-old male with past medical history significant for CVA with residual right-sided weakness, history of esophageal cancer status post esophagectomy, anxiety, BPH, hypertension, hyperlipidemia [place], atrial fibrillation status post Watchman device presented status post fall and was noted to have right-sided intertrochanteric fracture. He is status post open reduction internal fixation of right intertrochanteric hip fracture on 06/08. His postop course was complicated by acute hypoxic respiratory failure requiring 2 L of nasal cannula. Chest x-ray is consistent with c
[2021-06-13 22:00] VITALS: BP 119/89; PULSE 88; RESP 16; TEMP 36.1; O2SAT 97
[2021-06-14] MEDS: ACETAMINOPHEN 500 MG TABLET 1000 MG PO ×2 (02:18→09:29)
[2021-06-14] MEDS: oxyCODONE HCL (*CRX) 2.5 MG TAB IR PO ×2 (02:18→12:29)
[2021-06-14 06:00] VITALS: BP 122/67; PULSE 69; RESP 16; TEMP 36.3; O2SAT 98
[2021-06-14 06:08] LABS: Basophils Absolute Auto 0.1 K/mm3 (0.0-0.1); Basophils Percent Auto 0.8 % (0.2-1.2); Eosinophils Absolute Auto 0.4 K/mm3 (0-0.3); Eosinophils Percent Auto 5.1 % (0-4.4); Hematocrit 28.6 % (42.0-52.0); Hemoglobin 9.2 g/dL (14.0-18.0); Immature Granulocyte Absolute 0.02 K/mm3 (0.00-0.031); Immature Granulocyte Percent A 0.3 % (0-0.5); Lymphocytes Absolute Auto 2.13 K/mm3 (0.9-3.2); Lymphocytes Percent Auto 29.5 % (18.3-44.2); Mean Corpuscular HGB Conc 32.2 g/dl (32-36); Mean Corpuscular Volume 96.3 fl (80-100); Mean Platelet Volume 9.3 fl (7.4-10.4); Monocytes Absolute Auto 0.9 K/mm3 (0.1-0.6); Monocytes Percent Auto 12.5 % (2.6-8.5); Neutrophils Absolute Auto 3.7 K/mm3 (1.3-6.7); Neutrophils Percent Auto 51.8 % (45.5-73.1); Platelet Count Result 193 k/mm3 (150-375); Red Blood Count 2.97 M/mm3 (4.6-6.20); Red Cell Distribution Width 15.3 % (11.5-14.5); White Blood Count 7.2 K/mm3 (4.5-10.0)
[2021-06-14 06:15] LABS: Anion Gap 6 mmol/L (8-16); Blood Urea Nitrogen 21 mg/dL (9-20); Calcium 8.7 mg/dL (8.4-10.2); Carbon Dioxide 27 mmol/L (22-30); Chloride 104 mmol/L (98-107); Estimated CRCL calculation 63 ml/min; Estimated Glomerular Filt Rate > 60; Glucose 103 mg/dL (65-110); Potassium 4.2 mmol/L (3.4-5.0); Sodium 137 mmol/L (137-145)
[2021-06-14 08:30] VITALS: BP 158/76; PULSE 68; RESP 20; TEMP 36; O2SAT 97
[2021-06-14] MEDS: FINASTERIDE 5 MG TABLET PO (09:25)
[2021-06-14] MEDS: FAMOTIDINE 20 MG TABLET PO (09:25)
[2021-06-14] MEDS: FUROSEMIDE 20 MG TABLET PO (09:25)
[2021-06-14] MEDS: ESCITALOPRAM OXALATE 5 MG TABLET PO (09:25)
[2021-06-14] MEDS: ASPIRIN 81 MG ENTERIC TABLET PO (09:25)
[2021-06-14] MEDS: SENNA/DOCUSATE SODIUM TABLET 2 TAB PO (09:25)
[2021-06-14] MEDS: DABIGATRAN ETEXILATE 75 MG CAPSULE PO (09:25)
[2021-06-14] MEDS: polyethylene glycoL 3350 17 GM POWD.PACK PO (09:26)
--- NOTE | 2021-06-14 11:53 | PM.DS ---
DS: Admitting Diagnosis Discharge Date 06/14/2021 Admitting Diagnosis Fall Hip Fracture DS: Discharge Diagnosis Discharge Diagnosis (1) Closed intertrochanteric fracture of right hip: Qualifiers: Encounter type: initial encounter Fracture alignment: displaced Qualified Code(s): S72.141A - Displaced intertrochanteric fracture of right femur, initial encounter for closed fracture Code(s): S72.141A - Displaced intertrochanteric fracture of right femur, initial encounter for closed fracture Status: Acute (2) Fall: Qualifiers: Encounter type: initial encounter Qualified Code(s): W19.XXXA - Unspecified fall, initial encounter Code(s): W19.XXXA - Unspecified fall, initial encounter Status: Acute (3) Community acquired pneumonia: Qualifiers: Laterality: unspecified laterality Qualified Code(s): J18.9 - Pneumonia, unspecified organism Code(s): J18.9 - Pneumonia, unspecified organism Status: Acute DS: Summary Hospital Course Reason for hospitalization: Fall Hip fracture Pneumonia Hospital Course: 80-year-old male with past medical history significant for CVA with residual right-sided weakness, history of esophageal cancer status post esophagectomy, anxiety, BPH, hypertension, hyperlipidemia [place], atrial fibrillation status post Watchman device presented status post fall and was noted to have right-sided intertrochanteric fracture. He is status post open reduction internal fixation of right intertrochanteric hip fracture on 06/08. His postop course was complicated by acute hypoxic respiratory failure requiring 2 L of nasal cannula. Chest x-ray is consistent with concerns for pneumonia however no other white count is noted. An echo that was performed prior to his surgery showed some diastolic dysfunction, this puts him at a risk of possible exacerbation postop. He was started on IV Levaquin 750 mg daily and received 1 dose of IV Lasix. He is being continued on p.o. Lasix 20 mg daily Continues to be on aspirin and Pradaxa. He completed 5 days of IV levaquin and will also be sent to his rehab facility to complete a full course of 7 days of Levaquin. Status at Discharge Overall status at discharge: patient is progressing back to baseline Time Spent with Patient Time attestation: Total time spent providing and/or coordinating discharge services: Time spent: Less than 30 minutes Exam Narrative: Narrative: Pleasant older male finishing lunch, at the bedside Const: General: comfortable and no acute distress HENMT: General nose exam: no epistaxis Other: Very hard of hearing Eyes: EOM: EOMs intact bilaterally Neck: Neck: supple Resp: Effort & Inspection: normal respiratory effort Auscultation: clear to auscultation bilaterally Other: On O2 Cardio: Rate: regular rate Rhythm: regular rhythm Other: Occasional premature be GI: GI Palp: Yes Soft to palpation and No Tenderness to palpation present (GI) Skin: General skin exam: normal color Wounds: no wounds Neuro: Cognition (Neuro): normal cognition Speech: No normal speech Other: Expressive aphasia Extrem: General: no edema and no pedal edema Psych: Mental Status: mental status grossly normal Affect: normal affect DS: Data Data Completed and Pending Labs on day of discharge: Labs from last 24 hours 06/14/21 06/14/21 05:41 05:41 WBC 7.2 RBC 2.97 L Hgb 9.2 L Hct 28.6 L MCV 96.3 MCH 31.0 MCHC 32.2 RDW 15.3 H Plt Count 193 MPV 9.3 Immature Gran % (Auto) 0.3 Neut % (Auto) 51.8 Lymph % (Auto) 29.5 [place] % (Auto) 12.5 H Eos % (Auto) 5.1 H Baso % (Auto) 0.8 Lymph # (Auto) 2.13 [place] # (Auto) 0.9 H Eos # (Auto) 0.4 H Baso # (Auto) 0.1 Abs Immat Gran (auto) 0.02 Absolute Neuts (auto) 3.7 Absolute Nucleated RBC 0.0 Nucleated RBC % 0.0 Sodium 137 Potassium 4.2 Chloride 104 Carbon Dioxide 27 Anion Gap 6 L BUN 21 H Crea
--- NOTE | 2021-06-14 12:03 | PCCCNOTE ---
On 06/14/21, the student, [Linda Juan ], provided care and completed [employer] documentation on this patient. I have reviewed the student's documentation and agree with the findings.
--- NOTE | 2021-06-14 13:25 | PC.NURSE ---
On 06/14/21, the student, Nya Gibson, provided care and completed [facility] documentation on this patient. I have reviewed the student's documentation and agree with the findings.
== END 2021-06-14 14:15 | DRG 480 ==
LOC: ANHED 12:27 → ANH3MEDSUR 12:33
PROVIDERS: Orthopaedic Surgery; Admitting Provider Internal Medicine; Emergency Provider Emergency Medicine; PCP Internal Medicine; Visit Provider Internal Medicine
PROC: 0QS634Z Reposition Right Upper Femur with Internal Fixation Device, Percutaneous Approach (ICD-10-PCS; CPT 27245; principal; 2021-06-08 16:30)
DX: S72.141A Displaced intertrochanteric fracture of right femur, initial encounter for closed fracture (principal); J18.9 Pneumonia, unspecified organism; J96.01 Acute respiratory failure with hypoxia; I50.33 Acute on chronic diastolic (congestive) heart failure; I69.351 Hemiplegia and hemiparesis following cerebral infarction affecting right dominant side; D62 Acute posthemorrhagic anemia; D69.6 Thrombocytopenia, unspecified; I11.0 Hypertensive heart disease with heart failure; I69.320 Aphasia following cerebral infarction; J61 Pneumoconiosis due to asbestos and other mineral fibers; F41.8 Other specified anxiety disorders; I25.10 Atherosclerotic heart disease of native coronary artery without angina pectoris; I48.0 Paroxysmal atrial fibrillation; J30.9 Allergic rhinitis, unspecified; K21.9 Gastro-esophageal reflux disease without esophagitis; H61.23 Impacted cerumen, bilateral; M47.892 Other spondylosis, cervical region; E78.5 Hyperlipidemia, unspecified; N40.0 Benign prostatic hyperplasia without lower urinary tract symptoms; W19.XXXA Unspecified fall, initial encounter; Z79.01 Long term (current) use of anticoagulants; Z79.82 Long term (current) use of aspirin; Z79.899 Other long term (current) drug therapy; Z85.01 Personal history of malignant neoplasm of esophagus; Z95.5 Presence of coronary angioplasty implant and graft; Z95.818 Presence of other cardiac implants and grafts; Z90.49 Acquired absence of other specified parts of digestive tract
CPT/HCPCS: 36415; 70450; 71045; 71046; 72125; 72192; 73502; 73564; 80048; 80053; 81001; 82306; 82607; 82728; 82746; 83540; 83550; 83735; 83880; 84100; 84145; 85025; 85055; 85610; 85652; 85730; 86140; 86850; 86900; 86901; 93005; 96361; 96374; 96375; 97110; 97116; 97162; 97167; 97530; 97535; 99285; A9270; C1713; C8929; G0378; J0131; J0330; J0690; J1940; J1956; J2270; J2405; J2704; J3010; J3370; J7030; J7120

== ENCOUNTER 2022-04-20 14:58 | Outpatient (CLI) | payer MEDICARE, SELFPAY ==
--- NOTE | ~2022-04-20 | CT_ITS ---
EXAMINATION: CT abdomen pelvis wo con DATE: 04/20/2022 15:50 INDICATION: Hematuria. History of kidney stone. TECHNIQUE: Computed tomography (CT) of the abdomen and pelvis was performed without intravenous contr ast. Automated exposure control and iterative reconstruction technique were employed. Exam dose: 282 .93 mGy-cm total exam DLP. COMPARISON: 06/07/2021 CT pelvis FINDINGS: There is septal soft tissue thickening and honeycombing in the lung bases with peripheral p redominance. Heart size is borderline. No pericardial or pleural effusion. Large hiatal hernia. Stones are noted in the dependent aspect of the gallbladder. No gallbladder wall thickening or perich olecystic fluid or fat stranding. No hepatic, splenic, pancreatic, adrenal or renal space-occupying m ass lesion is evident on this limited noncontrast examination. There is a punctate calcification at the periphery of the upper pole left kidney. No other urinary tr act calculus or hydroureteronephrosis. There is moderate diffuse thickening and urinary bladder. Ther e is prominent prostate enlargement and calcification. There is a large stool ball in the rectum, measuring up to 8.6 x 9.1 cm There is a prominent of fecal material throughout the colon. No bowel obstruction. No intraperitoneal free air. There is atherosclerotic calcification but no aneurysm of the abdominal aorta. No intraperitoneal or retroperitoneal or pelvic mass lesion or adenopathy or ascites. Compression screw and nail in proximal right femur. Prominent degenerative changes apophyseal joints with associated grade 1 anterolisthesis at L4-5. Sev ere degenerative disc disease at L5-S1. IMPRESSION: Pinpoint small marginal calcification at the superior tip of the left kidney. No other u rinary tract calculus or hydroureteronephrosis Prominent prostate enlargement and calcification and probable associated bladder wall thickening due to outlet obstruction Large stool ball in the rectum; prominent amount of fecal material in the colon. No bowel obstruction or free air Cholelithiasis Very large hiatal hernia Reviewed, dictated and finalized at [facility]. Reviewed, dictated and finalized at [facility]. IMPRESSION: Pinpoint small marginal calcification at the superior tip of the l eft kidney. No other urinary tract calculus or hydroureteronephrosis Prominent prostate enlargement and calcification and probable associated bladde r wall thickening due to outlet obstruction Large stool ball in the rectum; prominent amount of fecal material in the colon . No bowel obstruction or free air Cholelithiasis Very large hiatal hernia
== END 2022-04-20 14:59 | disposition home or self-care (01) ==
PROVIDERS: PCP Internal Medicine; Visit Provider Urology
DX: N20.0 Calculus of kidney (principal); K43.9 Ventral hernia without obstruction or gangrene; K80.20 Calculus of gallbladder without cholecystitis without obstruction; N40.0 Benign prostatic hyperplasia without lower urinary tract symptoms
CPT/HCPCS: 74176

== ENCOUNTER 2022-09-09 01:05 | Inpatient (IN) | payer MEDICARE, SELFPAY ==
[2022-09-09] VITALS (41 sets, daily range): BP systolic 132–163; BP diastolic 59–97; PULSE 58–92; RESP 12–25; TEMP 36.6–38.3; O2SAT 96–100; BMI 19.9
--- NOTE | ~2022-09-09 | XR_ITS ---
EXAMINATION: XR chest 1V portable DATE: 09/11/2022 05:44 INDICATION: COVID-19 pneumonia. TECHNIQUE: A single frontal view of the chest was obtained. COMPARISON: Chest single view 09/09/2022, CT abdomen and pelvis 04/20/2022, chest 2 views 06/10/2021 FINDINGS: There is a diffuse reticulonodular pattern in the lungs. No pleural effusion or pneumothora x. The heart size is normal. There are electronic implant in left anterior chest wall. There are surg ical clips in left hilum. IMPRESSION: 1. Stable diffuse lung disease, likely at least predominantly chronic interstitial lung disease. Supe rimposed pulmonary edema or pneumonia cannot be excluded. Reviewed, dictated and finalized at location A. HER STRIP MECHANIC IMPRESSION: 1. Stable diffuse lung disease, likely at least predominantly chronic interstit ial lung disease. Superimposed pulmonary edema or pneumonia cannot be excluded.
--- NOTE | ~2022-09-09 | XR_ITS ---
XR chest 1V portable 09/09/2022 03:33 Indication: Fever and weakness Procedure: AP portable chest Comparison: Comparison to multiple prior studies sequentially, with oldest reviewed study dated 05/13. Findings: There is coarse chronic peripheral interstitial infiltrates with more focal consolidation i n the left lower thorax. These findings appear chronic. Heart size is normal. There is atherosclerosi s. No acute osseous abnormality. No pneumothorax. Impression: 1: Chronic coarse interstitial infiltrates and left basilar consolidation, most likely interstitial f ibrosis. No acute findings are seen. Reviewed, dictated and finalized at location A. L DISTRIBUTOR Impression: 1: Chronic coarse interstitial infiltrates and left basilar consolidation, most likely interstitial fibrosis. No acute findings are seen.
--- NOTE | 2022-09-09 01:14 | ECG_ITS ---
Measurements Intervals [place] Rate: 80 P: 30 [place]: 132 QRS: 49 QRSD: 153 T: 1 QT: 404 QTc: 467 Interpretive Statements SINUS RHYTHM FREQUENT ATRIAL COUPLETS RIGHT BUNDLE BRANCH BLOCK BASELINE ARTIFACT- I, II, III, AVF, V4 ABNORMAL ECG COMPARED TO ECG 06/07/2021 10:02:11 SINUS RHYTHM NOW PRESENT RIGHT BUNDLE-BRANCH BLOCK NOW PRESENT Electronically Signed On 09-09-2022 7:42:00 TRAINING ASSISTANT by Shaheen Abdalla D.O.
[2022-09-09 02:44] LABS: Influenza A QL RT-PCR Negative (Negative); Influenza B QL RT-PCR Negative (Negative); RSV RNA, RT-PCR Negative (Negative); SARS-CoV-2 RNA PCR Positive
[2022-09-09 03:08] LABS: Basophils Percent Auto 0.8 % (0.2-1.2); Eosinophils Absolute Auto 0.1 K/mm3 (0-0.3); Eosinophils Percent Auto 2.2 % (0-4.4); Hematocrit 40.9 % (42.0-52.0); Hemoglobin 13.3 g/dL (14.0-18.0); Immature Granulocyte Absolute 0.01 K/mm3 (0.00-0.031); Immature Granulocyte Percent A 0.2 % (0-0.5); Lymphocytes Absolute Auto 0.65 K/mm3 (0.9-3.2); Lymphocytes Percent Auto 12.8 % (18.3-44.2); Mean Corpuscular HGB Conc 32.5 g/dl (32-36); Mean Corpuscular Hemoglobin 31.2 pg (26-34); Mean Platelet Volume 9.5 fl (7.4-10.4); Monocytes Absolute Auto 0.7 K/mm3 (0.1-0.6); Neutrophils Absolute Auto 3.6 K/mm3 (1.3-6.7); Platelet Count Result 182 k/mm3 (150-375); Red Blood Count 4.26 M/mm3 (4.6-6.20); Red Cell Distribution Width 14.5 % (11.5-14.5); White Blood Count 5.1 K/mm3 (4.5-10.0)
[2022-09-09 03:19] LABS: Lactic Acid Reflex 0.9 mmol/L (0.7-2.0)
[2022-09-09 03:25] LABS: INR 1.5; Prothrombin Time 17.1 Seconds (11.1-14.7)
[2022-09-09 03:30] LABS: Alanine Aminotransferase 21 U/L (6-50); Albumin Level 3.8 g/dL (3.5-5.1); Alkaline Phosphatase 94 U/L (38-126); Anion Gap 4 mmol/L (8-16); Aspartate Amino Transferase 33 U/L (17-59); Bilirubin,Total 0.8 mg/dL (0.2-1.3); Blood Urea Nitrogen 17 mg/dL (9-20); Calcium 8.8 mg/dL (8.4-10.2); Carbon Dioxide 30 mmol/L (22-30); Chloride 105 mmol/L (98-107); Estimated CRCL calculation 51 ml/min; Estimated Glomerular Filt Rate > 60; Glucose 94 mg/dL (65-110); Lipase 47 U/L (23-300); Potassium 5.2 mmol/L (3.4-5.0); Sodium 139 mmol/L (137-145)
[2022-09-09] MEDS: ACETAMINOPHEN 500 MG TABLET 1000 MG PO (05:40)
[2022-09-09 06:10] LABS: Appearance Urine Slightly Cloudy (Clear); Bilirubin Urine Negative (Negative); Blood Urine Negative (Negative); Color Urine Yellow (Yellow); Glucose Urine UA Negative (Negative); Ketones Urine 1+ mg/dL (Negative); Leukocyte Esterase Ur Negative LEU/UL (Negative); Nitrate Urine Negative (Negative); Protein Urine Trace mg/dL (Negative); Urobilinogen Urine 0.2 mg/dL (<2.0); pH Urine 7.5 (5.0-9.0)
[2022-09-09 06:17] LABS: Add Urine Microscopic? YES; Amorphous Sediment Urine Few; Mucus Urine Rare /lpf; RBC Urine 0-2 /hpf (0-2); Squamous Epithelial Cell Urine Rare /hpf (Few); WBC Urine 0-3 /hpf
--- NOTE | 2022-09-09 07:51 | ED.GENADULT ---
HPI - General Adult General Chief complaint: Weakness Stated complaint: weakness Time Seen by Provider: 09/09/22 01:39 History of Present Illness HPI narrative: This 81-year-old male past medical history of multiple strokes who is nonverbal presenting to ED with generalized weakness. He is accompanied by his Geri. She says that he has not been feeling well. He says that he has been more lethargic than usual he has been having chills and generalized weakness. She was more concerned about a stroke but she says he is at his baseline neurologic status which is nonverbal with right-sided weakness. Patient has had multiple COVID vaccines. They have had a new home care nurse who they believe had a cold visit their house earlier in the week. Patient is nonverbal and is unable to provide any information. Related Data Home Medications Medication Instructions Recorded Confirmed aspirin 81 mg tablet,delayed 81 mg PO DAILY 02/08/20 06/07/21 release (Adult Aspirin Regimen) dabigatran etexilate 75 mg capsule 75 mg PO BID 02/08/20 06/07/21 (Pradaxa) escitalopram oxalate [Lexapro] 5 mg PO DAILY 02/08/20 06/07/21 finasteride 5 mg PO DAILY 02/08/20 06/07/21 potassium citrate 15 mEq (1,620 meq PO 09/09/22 mg) tablet,extended release simvastatin 20 mg tablet mg 09/09/22 Allergies Allergy/AdvReac Type Severity Reaction Status Date / Time No Known Allergies Allergy Verified 09/09/22 01:15 [facility] Past Medical History Medical History Anxiety With depression BPH (benign prostatic hyperplasia) History of CVA in adulthood Expressive aphasia and right-sided weakness. History of malignant neoplasm of esophagus Status post esophagectomy without any radiation or chemotherapy History of stroke Hypertension Paroxysmal atrial fibrillation Presence of Watchman left atrial appendage closure device Surgical History Surgical History H/O esophagectomy History of back surgery History of hernia repair History of knee surgery Family History Family History Sibling Heart disease COPD (chronic obstructive pulmonary disease) Mother Hypertension Other Hypertension Father COPD (chronic obstructive pulmonary disease) Social History Social History Social History: The patient resides with his . She is unsure of the code status. But for nausea leave him a full code. He has a living will but the is unsure of what it says. The patient quit smoking many years ago. He has 3 biological children and 2 step children and he adopted a grand child. He is retired from [employer] still. He denies any alcohol marijuana illicit drugs. One biological child is and 1 stepchild is . Code status full code Smoking status: Never smoker Alcohol intake: former Substance use: never Spiritual care concerns: No Exam Narrative: APPEARANCE: No apparent distress. Head: atraumatic. EYES: EOMI, NOSE: Atraumatic NECK: Trachea midline RESPIRATORY: No increased rate of breathing, clear to auscultation bilaterally CARDIOVASCULAR: RRR, no peripheral edema ABDOMINAL: Non-distended, soft nontender no guarding or rebound MUSCULOSKELETAl: No obvious deformities NEURO: Alert. nonverbal, reduced function on the right side, left side Neurologically intact SKIN:: Warm, dry. Normal color PSYCHIATRIC: Normal affect Course Vital Signs Vital signs: Vital Signs Temperature 100.9 F H 09/09/22 01:06 Pulse Rate 83 09/09/22 01:06 Respiratory Rate 17 09/09/22 01:06 Blood Pressure 153/87 H 09/09/22 01:06 Pulse Oximetry 98 09/09/22 01:06 Oxygen Delivery Room Air 09/09/22 01:06 Temperature 97.8 F 09/09/22 06:59 Pulse Rate 73 09/09/22 06:31 Respiratory Rate 22 H 09/09
[2022-09-09] MEDS: SODIUM CHLORIDE 0.9% IV 1,000 ML 999 ML IV CONT (08:40)
[2022-09-09 09:43] LABS: Procalcitonin 0.1 ng/mL
--- NOTE | 2022-09-09 10:23 | PM.IMHP ---
H&P: HPI History of Present Illness Date/Time: 09/09/22 10:23 Chief Complaint: Weakness Narrative: Eric Barry is a 81 yo male with paroxysmal atrial fibrillation s/p Watchman device, hypertension, stroke with residual ride-sided weakness and expressive aphasia. He presented to the ED with his for evaluation of weakness. The patient has expressive aphasia following his stroke and is unable to provide much medical information. No family is at bedside currently. His medical information was obtained from ED and prior medical records. The patient reportedly was not feeling well at home, more lethargic than usual, having chills and generalized weakness. His was concerned for stroke prompting them to come to the ED. The patient reports c/o cough and fatigue. No chest pain, SOB, sore throat, [place], abdominal pain, N/V/D or new focal deficits. He was noted to febrile 100.9F, RR 22, but otherwise stable vital signs. CBC and CMP were unremarkable except for mildly elevated K 5.2. Procalcitonin 0.1, CRP 1, and lactic acid 0.9. Chest X-ray showed chornic coarse interstitial infiltrates and left basilar consolidation, likely fibrosis. He tested positive for COVID19 PCR, but negative for influenza A/B or RSV. Reportedly his new home care nurse had cold symptoms last week. He was treated with 1 gram acetaminophen and 1 liter NS IV fluids. He was admitted for observation and supportive care of COVID19 pneumonia. Review of Systems Review of Systems: ROS unobtainable: Yes unobtainable due to mental status PMFSH Past Medical History Medical History (Updated 09/09/22 @ 16:47 by Jess Bryant APRN) Actinic keratosis Allergic rhinitis Anxiety With depression Arthritis BPH (benign prostatic hyperplasia) CAD (coronary artery disease) History of CAD and stent in 2014, per patient's Diastolic heart failure Hip fracture due to osteoporosis History of CVA in adulthood Expressive aphasia and right-sided weakness. 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 She is unsure of the code status. But for nausea leave him a full code. He has a living will but the is unsure of what it says. The patient quit smoking many years ago. He has 3 biological children and 2 step children and he adopted a grand child. He is retired from [employer] still. He denies any alcohol marijuana illicit drugs. One biological child is and 1 stepchild is . Code status full code Smoking status: Never smoker Alcohol intake: former Substance use: never Lack of Transportation: No Lack of Food: Never True Current Housing: I Have Housing Concerned About Future Housing: No Difficulty Paying Gas/Electric Bills: No Difficulty Paying for Meds: No Currently Unemployed: No Education: High School Diploma/GED Difficulty w/ Childcare or Family Care: No Spiritual care concerns: Yes Meds Home Medications and Allergies Home Medications Medication Instructions Recorded Confirmed Type aspirin 81 mg tablet,delayed 81 mg PO DAILY 02/08/20 09/09/22 History release (Adult Aspirin Regimen) dabigatran etexilate 75 mg capsule 75 mg PO
[2022-09-09 11:32] LABS: Folic Acid > 20.0 ng/mL (2.76->20)
[2022-09-09] MEDS: SODIUM CHLORIDE 0.9% IV 1,000 ML 75 ML IV CONT (12:32)
[2022-09-09] MEDS: DABIGATRAN ETEXILATE 75 MG CAPSULE PO (17:58)
[2022-09-09] MEDS: FAMOTIDINE 10 MG TABLET PO (20:34)
[2022-09-09] MEDS: SIMVASTATIN 20 MG TABLET PO (20:34)
[2022-09-09] MEDS: FINASTERIDE 5 MG TABLET PO (20:34)
[2022-09-10 06:00] VITALS: BP 159/85; PULSE 75; RESP 16; TEMP 37.6; O2SAT 96
[2022-09-10 06:18] LABS: Basophils Absolute Auto 0.1 K/mm3 (0.0-0.1); Basophils Percent Auto 0.7 % (0.2-1.2); Eosinophils Percent Auto 0.1 % (0-4.4); Hematocrit 39.2 % (42.0-52.0); Hemoglobin 12.4 g/dL (14.0-18.0); Immature Granulocyte Absolute 0.04 K/mm3 (0.00-0.031); Immature Granulocyte Percent A 0.6 % (0-0.5); Mean Corpuscular HGB Conc 31.6 g/dl (32-36); Mean Corpuscular Hemoglobin 31.2 pg (26-34); Mean Corpuscular Volume 98.7 fl (80-100); Mean Platelet Volume 9.4 fl (7.4-10.4); Monocytes Absolute Auto 0.9 K/mm3 (0.1-0.6); Monocytes Percent Auto 12.4 % (2.6-8.5); Neutrophils Absolute Auto 4.9 K/mm3 (1.3-6.7); Neutrophils Percent Auto 68.2 % (45.5-73.1); Platelet Count Result 175 k/mm3 (150-375); Red Blood Count 3.97 M/mm3 (4.6-6.20); Red Cell Distribution Width 14.4 % (11.5-14.5); White Blood Count 7.2 K/mm3 (4.5-10.0)
[2022-09-10 06:25] LABS: Alanine Aminotransferase 17 U/L (6-50); Albumin Level 3.6 g/dL (3.5-5.1); Alkaline Phosphatase 90 U/L (38-126); Anion Gap 4 mmol/L (8-16); Aspartate Amino Transferase 23 U/L (17-59); Bilirubin,Total 0.6 mg/dL (0.2-1.3); Blood Urea Nitrogen 12 mg/dL (9-20); CRP 2.3 mg/dL (<1.0); Calcium 8.1 mg/dL (8.4-10.2); Carbon Dioxide 29 mmol/L (22-30); Chloride 100 mmol/L (98-107); Estimated CRCL calculation 54 ml/min; Estimated Glomerular Filt Rate > 60; Glucose 89 mg/dL (65-110); Potassium 3.9 mmol/L (3.4-5.0); Sodium 133 mmol/L (137-145)
[2022-09-10] MEDS: DABIGATRAN ETEXILATE 75 MG CAPSULE PO ×2 (08:39→16:55)
[2022-09-10] MEDS: ASPIRIN 81 MG ENTERIC TABLET PO (08:39)
[2022-09-10 08:40] VITALS: O2SAT 92
[2022-09-10] MEDS: ESCITALOPRAM OXALATE 5 MG TABLET PO (08:40)
[2022-09-10] MEDS: FAMOTIDINE 10 MG TABLET PO ×2 (08:40→20:24)
--- NOTE | 2022-09-10 10:55 | PCOTNOTE ---
Attempted to see pt. for occupational therapy evaluation. Pt. reported he was too fatigued at this time after working with PT this morning and just returning to bed to rest, agreeable to work with OT at later time. Nursing aware. Following.
--- NOTE | 2022-09-10 13:47 | P.PNIM_ITS ---
Progress Note: A&P Assessment and Plan (1) COVID: Code(s): U07.1 - COVID-19 Status: Acute Assessment and Plan: Acute, COVID19 PCR positive 09/09/22, per report patient has received multiple COVID19 vaccinations. * No supplemental oxygen needs at this time- hold Remdesivir and Decadron. * Continue supportive care- PRN albuterol MDI, acetaminophen PO PRN for fever/pain, and tessalon perles for cough. * saline lock IV fluids if taking good PO. * Repeat chest x-ray tomorrow morning. * No leukocytosis WBC 5- hold antibiotics at this time. * Trend CBC, CRP, and chemistry * currently on pradaxa for PAF which will be continued. * Escalate care if patient's condition worsens or has hypoxia. (2) Generalized muscle weakness: Code(s): M62.81 - Muscle weakness (generalized) Status: Acute Assessment and Plan: / COVID19 pneumonia. * supportive care as above. * Consult PT/OT- patient lives alone with his and has home health nurse (3) Diastolic heart failure: Qualifiers: Heart failure chronicity: acute on chronic Qualified Code(s): I50.33 - Acute on chronic diastolic (congestive) heart failure Code(s): I50.30 - Unspecified diastolic (congestive) heart failure Status: Chronic Assessment and Plan: chronic, diastolic dysfunction, not in acute exacerbation. * Monitor volume status * He does not appear volume overloaded and in fact appears mildly dehydrated. * Continue gentle IV fluids until taking good PO (4) History of stroke: Code(s): Z86.73 - Personal history of transient ischemic attack (TIA), and cerebral infarction without residual deficits Status: Chronic Assessment and Plan: No new focal deficits. 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 * Continue pradaxa, simvastatin and aspirin. * Avoid hyper or hypotension (5) Paroxysmal atrial fibrillation: Code(s): I48.0 - Paroxysmal atrial fibrillation Status: Chronic Assessment and Plan: H/O PAF, EKG today SR with frequent PAC couplets and RBBB * Continue Pradaxa BID * Rate controlled. * Monitor vital signs. (6) Hypertension: Qualifiers: Hypertension type: primary hypertension Qualified Code(s): I10 - Essential (primary) hypertension Code(s): I10 - Essential (primary) hypertension Status: Chronic Assessment and Plan: chronic, BP mildly elevated. * On Finasteride for BPH. * PRN hydralazine IV for SBP>160 or DBP>100 (7) CAD (coronary artery disease): Qualifiers: Coronary Disease-Associated Artery/Lesion type: [place] artery [place] vs. transplanted heart: [place] heart Associated angina: without angina Qualified Code(s): I25.10 - Atherosclerotic heart disease of [place] coronary artery without angina pectoris Code(s): I25.10 - Atherosclerotic heart disease of [place] coronary artery without angina pectoris Status: Chronic Assessment and Plan: H/O angioplasty in 2015 per records. * Continue aspirin and simvastatin. (8) Anxiety: Code(s): F41.9 - Anxiety disorder, unspecified Status: Chronic Assessment and Plan: chronic, stable. Continue Lexapro. (9) GERD (gastroesophageal reflux disease): Qualifiers: Esophagitis presence: esophagitis presence not specified Qualified Code(s): K21.9 - Gastro-esophageal reflux disease without esophagitis Code(s): K21.9 - Gastro-esophageal reflux disease without esophagitis Stat
--- NOTE | 2022-09-10 13:47 | PM.IMPN ---
Progress Note: A&P Assessment and Plan (1) COVID: Code(s): U07.1 - COVID-19 Status: Acute Assessment and Plan: Acute, COVID19 PCR positive 09/09/22, per report patient has received multiple COVID19 vaccinations. No supplemental oxygen needs at this time- hold Remdesivir and Decadron. Continue supportive care- PRN albuterol MDI, acetaminophen PO PRN for fever/pain, and tessalon perles for cough. saline lock IV fluids if taking good PO. Repeat chest x-ray tomorrow morning. No leukocytosis WBC 5- hold antibiotics at this time. Trend CBC, CRP, and chemistry currently on pradaxa for PAF which will be continued. Escalate care if patient's condition worsens or has hypoxia. (2) Generalized muscle weakness: Code(s): M62.81 - Muscle weakness (generalized) Status: Acute Assessment and Plan: 09/13 COVID19 pneumonia. supportive care as above. Consult PT/OT- patient lives alone with his and has home health nurse (3) Diastolic heart failure: Qualifiers: Heart failure chronicity: acute on chronic Qualified Code(s): I50.33 - Acute on chronic diastolic (congestive) heart failure Code(s): I50.30 - Unspecified diastolic (congestive) heart failure Status: Chronic Assessment and Plan: chronic, diastolic dysfunction, not in acute exacerbation. Monitor volume status He does not appear volume overloaded and in fact appears mildly dehydrated. Continue gentle IV fluids until taking good PO (4) History of stroke: Code(s): Z86.73 - Personal history of transient ischemic attack (TIA), and cerebral infarction without residual deficits Status: Chronic Assessment and Plan: No new focal deficits. 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 Continue pradaxa, simvastatin and aspirin. Avoid hyper or hypotension (5) Paroxysmal atrial fibrillation: Code(s): I48.0 - Paroxysmal atrial fibrillation Status: Chronic Assessment and Plan: H/O PAF, EKG today SR with frequent PAC couplets and RBBB Continue Pradaxa BID Rate controlled. Monitor vital signs. (6) Hypertension: Qualifiers: Hypertension type: primary hypertension Qualified Code(s): I10 - Essential (primary) hypertension Code(s): I10 - Essential (primary) hypertension Status: Chronic Assessment and Plan: chronic, BP mildly elevated. On Finasteride for BPH. PRN hydralazine IV for SBP>160 or DBP>100 (7) CAD (coronary artery disease): Qualifiers: Coronary Disease-Associated Artery/Lesion type: [place] artery [place] vs. transplanted heart: [place] heart Associated angina: without angina Qualified Code(s): I25.10 - Atherosclerotic heart disease of [place] coronary artery without angina pectoris Code(s): I25.10 - Atherosclerotic heart disease of [place] coronary artery without angina pectoris Status: Chronic Assessment and Plan: H/O angioplasty in 2015 per records. Continue aspirin and simvastatin. (8) Anxiety: Code(s): F41.9 - Anxiety disorder, unspecified Status: Chronic Assessment and Plan: chronic, stable. Continue Lexapro. (9) GERD (gastroesophageal reflux disease): Qualifiers: Esophagitis presence: esophagitis presence not specified Qualified Code(s): K21.9 - Gastro-esophageal reflux disease without esophagitis Code(s): K21.9 - Gastro-esophageal reflux disease without esophagitis Status: Chronic Assessment and Plan: chronic, no epigastric pain or complaints, empiric famotidine BID PO while inpatient. (10) BPH (benign prostatic hyperplasia): Qualifiers: Lower urinary tract symptom presence: symptoms present Lower urinary tract symptom detail: unspecified Qualified Code(s): N40.1 - Benign prostatic hyperplasia with lower urinary tract symptoms Code(s): N40.0 - Vikas
[2022-09-10 14:06] VITALS: BMI 19.9
[2022-09-10 14:49] VITALS: BP 138/71; PULSE 73; RESP 20; TEMP 37.4; O2SAT 100
[2022-09-10] MEDS: FINASTERIDE 5 MG TABLET PO (20:24)
[2022-09-10] MEDS: SIMVASTATIN 20 MG TABLET PO (20:24)
[2022-09-10 22:00] VITALS: BP 126/78; PULSE 73; RESP 20; TEMP 37.1; O2SAT 96
[2022-09-11 04:28] VITALS: BP 125/76; PULSE 92; RESP 20; TEMP 36.8; O2SAT 92
[2022-09-11 05:44] LABS: Basophils Percent Auto 0.4 % (0.2-1.2); Hematocrit 37.8 % (42.0-52.0); Hemoglobin 12.5 g/dL (14.0-18.0); Immature Granulocyte Absolute 0.01 K/mm3 (0.00-0.031); Immature Granulocyte Percent A 0.1 % (0-0.5); Lymphocytes Absolute Auto 1.19 K/mm3 (0.9-3.2); Lymphocytes Percent Auto 15.5 % (18.3-44.2); Mean Corpuscular HGB Conc 33.1 g/dl (32-36); Mean Corpuscular Hemoglobin 31.3 pg (26-34); Mean Corpuscular Volume 94.7 fl (80-100); Mean Platelet Volume 9.1 fl (7.4-10.4); Neutrophils Absolute Auto 5.5 K/mm3 (1.3-6.7); Platelet Count Result 186 k/mm3 (150-375); Red Blood Count 3.99 M/mm3 (4.6-6.20); Red Cell Distribution Width 14.2 % (11.5-14.5); White Blood Count 7.7 K/mm3 (4.5-10.0)
[2022-09-11 05:56] LABS: Anion Gap 6 mmol/L (8-16); Blood Urea Nitrogen 15 mg/dL (9-20); CRP 7.4 mg/dL (<1.0); Calcium 8.3 mg/dL (8.4-10.2); Carbon Dioxide 25 mmol/L (22-30); Chloride 100 mmol/L (98-107); Estimated CRCL calculation 68 ml/min; Estimated Glomerular Filt Rate > 60; Glucose 105 mg/dL (65-110); Potassium 3.7 mmol/L (3.4-5.0); Sodium 131 mmol/L (137-145)
[2022-09-11 08:28] VITALS: RESP 20; O2SAT 92
[2022-09-11] MEDS: DABIGATRAN ETEXILATE 75 MG CAPSULE PO ×2 (08:28→16:45)
[2022-09-11] MEDS: ESCITALOPRAM OXALATE 5 MG TABLET PO (08:28)
[2022-09-11] MEDS: FAMOTIDINE 10 MG TABLET PO ×2 (08:28→20:34)
[2022-09-11] MEDS: ASPIRIN 81 MG ENTERIC TABLET PO (08:28)
[2022-09-11 09:38] LABS: Procalcitonin 0.2 ng/mL
--- NOTE | 2022-09-11 10:41 | PM.DS ---
DS: Summary Time Spent with Patient Time attestation: Total time spent providing and/or coordinating discharge services: DS: Data Data Completed and Pending Labs on day of discharge: Labs from last 24 hours 09/11/22 09/11/22 09/11/22 08:14 05:17 05:17 WBC 7.7 RBC 3.99 L Hgb 12.5 L Hct 37.8 L MCV 94.7 MCH 31.3 MCHC 33.1 RDW 14.2 Plt Count 186 MPV 9.1 Immature Gran % (Auto) 0.1 Neut % (Auto) 71.0 Lymph % (Auto) 15.[address] [place] % (Auto) 13.0 H Eos % (Auto) 0.0 Baso % (Auto) 0.4 Lymph # (Auto) 1.19 [place] # (Auto) 1.0 H Eos # (Auto) 0.0 Baso # (Auto) 0.0 Abs Immat Gran (auto) 0.01 Absolute Neuts (auto) 5.5 Absolute Nucleated RBC 0.0 Nucleated RBC % 0.0 Sodium 131 L Potassium 3.7 Chloride 100 Carbon Dioxide 25 Anion Gap 6 L BUN 15 Creatinine 0.70 Estim Creat Clear Calc 68 Estimated GFR > 60 Glucose 105 Calcium 8.3 L C-Reactive Protein 7.4 H Procalcitonin 0.2 Preliminary micro results at discharge 09/09/22 04:01 Blood Culture - Preliminary Blood 09/09/22 02:57 Blood Culture - Preliminary Blood Discharge Plan Discharge Patient Disposition: Home Health Service Discharge Instructions: Per Care Coordination patient has been arranged to have [facility] for RN, PT, OT [phone] RN please fax completed discharge instructions to [phone] Patient Instructions: Antibiotic Form Stand Alone Forms: General Discharge Information Discharge Medications: No Action finasteride 5 mg PO DAILY escitalopram oxalate 5 mg PO DAILY Pradaxa 75 mg capsule 75 mg PO BID aspirin [Adult Aspirin Regimen] 81 mg tablet,delayed release (DR/EC) 81 mg PO DAILY acetaminophen [Acetaminophen Extra Strength] 500 mg tablet 1,000 mg PO Q8H PRN (Reason: pain) Qty: 100 0RF simvastatin 20 mg tablet 20 mg PO HS potassium citrate 15 mEq tablet extended release 15 meq PO DAILY Rx Instructions: Pt. takes every other day. Date of admission: 09/09/22 08:19 Primary Care Provider: NahedEloy Admitting Provider: Moris Perea Attending physician on admission: Moris Perea Condition: Stable
[2022-09-11] MEDS: guaiFENesin 12 HR 600 MG TABCR PO ×2 (11:29→20:34)
--- NOTE | 2022-09-11 11:58 | P.PNIM_ITS ---
Progress Note: A&P Assessment and Plan (1) COVID: Code(s): U07.1 - COVID-19 Status: Acute Assessment and Plan: Acute, COVID19 PCR positive 09/09/22, per report patient has received multiple COVID19 vaccinations. * No supplemental oxygen needs at this time- hold Remdesivir and Decadron. * Continue supportive care- PRN albuterol MDI, acetaminophen PO PRN for fever/ pain, and tessalon perles for cough. * saline lock IV fluids if taking good PO. * Repeat chest x-ray suggests worsening pneumonia as reviewed by myself and collaborating physician. * No leukocytosis WBC 7.7- hold antibiotics at this time. * Trend CBC, CRP, and chemistry * currently on pradaxa for PAF which will be continued. * Escalate care if patient's condition worsens or has hypoxia. * CRP trending up 1 to 2.3 to 7.9 * Procalcitonin 0.2 * blood cultures negative to date. * spO2 decreased 92% from yesterday. Patient has difficulty following commands for expectorating mucous and given his history of stroke this places him at high risk for worsening pneumonia and complications. * Add dexamethasone 6 mg IV today and continue 6 mg daily x 10 days. * change Albuterol MDI 2 puffs Q6 hours. * encourage incentive spirometer Q2 hours while awake and PEP therapy. (2) Generalized muscle weakness: Code(s): M62.81 - Muscle weakness (generalized) Status: Acute Assessment and Plan: 2/2 COVID19 pneumonia. * supportive care as above. * Consult PT/OT- patient lives alone with his and has home health nurse (3) Diastolic heart failure: Qualifiers: Heart failure chronicity: acute on chronic Qualified Code(s): I50.33 - Acute on chronic diastolic (congestive) heart failure Code(s): I50.30 - Unspecified diastolic (congestive) heart failure Status: Chronic Assessment and Plan: chronic, diastolic dysfunction, not in acute exacerbation. * Monitor volume status * He does not appear volume overloaded and in fact appears mildly dehydrated. * saline locked IV fluids. Monitor I/O. (4) History of stroke: Code(s): Z86.73 - Personal history of transient ischemic attack (TIA), and cerebral infarction without residual deficits Status: Chronic Assessment and Plan: No new focal deficits. 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 * Continue pradaxa, simvastatin and aspirin. * Avoid hyper or hypotension (5) Paroxysmal atrial fibrillation: Code(s): I48.0 - Paroxysmal atrial fibrillation Status: Chronic Assessment and Plan: H/O PAF, EKG today SR with frequent PAC couplets and RBBB * Continue Pradaxa BID * Rate controlled. * Monitor vital signs. (6) Hypertension: Qualifiers: Hypertension type: primary hypertension Qualified Code(s): I10 - Essential (primary) hypertension Code(s): I10 - Essential (primary) hypertension Status: Chronic Assessment and Plan: chronic, BP mildly elevated. * On Finasteride for BPH. * PRN hydralazine IV for SBP>160 or DBP>100 (7) CAD (coronary artery disease): Qualifiers: Associated angina: without angina Coronary Disease-Associated Artery/Lesion type: [place] artery [place] vs. transplanted heart: [place] heart Qualified Code(s): I25.10 - Atherosclerotic heart disease of [place] coronary artery without angina pectoris Code(s): I25.10 - Atherosclerotic heart disease of [place] coronary artery without angina pectoris Status: Chronic Assessment and Plan: H/O angioplasty in 2015 per recor
--- NOTE | 2022-09-11 11:58 | PM.IMPN ---
Progress Note: A&P Assessment and Plan (1) COVID: Code(s): U07.1 - COVID-19 Status: Acute Assessment and Plan: Acute, COVID19 PCR positive 09/09/22, per report patient has received multiple COVID19 vaccinations. No supplemental oxygen needs at this time- hold Remdesivir and Decadron. Continue supportive care- PRN albuterol MDI, acetaminophen PO PRN for fever/pain, and tessalon perles for cough. saline lock IV fluids if taking good PO. Repeat chest x-ray suggests worsening pneumonia as reviewed by myself and collaborating physician. No leukocytosis WBC 7.7- hold antibiotics at this time. Trend CBC, CRP, and chemistry currently on pradaxa for PAF which will be continued. Escalate care if patient's condition worsens or has hypoxia. CRP trending up 1 to 2.3 to 7.9 Procalcitonin 0.2 blood cultures negative to date. spO2 decreased 92% from yesterday. Patient has difficulty following commands for expectorating mucous and given his history of stroke this places him at high risk for worsening pneumonia and complications. Add dexamethasone 6 mg IV today and continue 6 mg daily x 10 days. change Albuterol MDI 2 puffs Q6 hours. encourage incentive spirometer Q2 hours while awake and PEP therapy. (2) Generalized muscle weakness: Code(s): M62.81 - Muscle weakness (generalized) Status: Acute Assessment and Plan: 2/2 COVID19 pneumonia. supportive care as above. Consult PT/OT- patient lives alone with his and has home health nurse (3) Diastolic heart failure: Qualifiers: Heart failure chronicity: acute on chronic Qualified Code(s): I50.33 - Acute on chronic diastolic (congestive) heart failure Code(s): I50.30 - Unspecified diastolic (congestive) heart failure Status: Chronic Assessment and Plan: chronic, diastolic dysfunction, not in acute exacerbation. Monitor volume status He does not appear volume overloaded and in fact appears mildly dehydrated. saline locked IV fluids. Monitor I/O. (4) History of stroke: Code(s): Z86.73 - Personal history of transient ischemic attack (TIA), and cerebral infarction without residual deficits Status: Chronic Assessment and Plan: No new focal deficits. 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 Continue pradaxa, simvastatin and aspirin. Avoid hyper or hypotension (5) Paroxysmal atrial fibrillation: Code(s): I48.0 - Paroxysmal atrial fibrillation Status: Chronic Assessment and Plan: H/O PAF, EKG today SR with frequent PAC couplets and RBBB Continue Pradaxa BID Rate controlled. Monitor vital signs. (6) Hypertension: Qualifiers: Hypertension type: primary hypertension Qualified Code(s): I10 - Essential (primary) hypertension Code(s): I10 - Essential (primary) hypertension Status: Chronic Assessment and Plan: chronic, BP mildly elevated. On Finasteride for BPH. PRN hydralazine IV for SBP>160 or DBP>100 (7) CAD (coronary artery disease): Qualifiers: Associated angina: without angina Coronary Disease-Associated Artery/Lesion type: [place] artery [place] vs. transplanted heart: [place] heart Qualified Code(s): I25.10 - Atherosclerotic heart disease of [place] coronary artery without angina pectoris Code(s): I25.10 - Atherosclerotic heart disease of [place] coronary artery without angina pectoris Status: Chronic Assessment and Plan: H/O angioplasty in 2015 per records. Continue aspirin and simvastatin. (8) Anxiety: Code(s): F41.9 - Anxiety disorder, unspecified Status: Chronic Assessment and Plan: chronic, stable. Continue Lexapro. (9) GERD (gastroesophageal reflux disease): Qualifiers: Esophagitis presence: esophagitis presence not specified Qualified Code(s): K21.9 - Gastro-esophageal reflux disease without esophagitis
[2022-09-11 14:25] VITALS: BP 130/76; PULSE 70; RESP 20; TEMP 36.8; O2SAT 98
[2022-09-11] MEDS: ALBUTEROL SULFATE (*SP) AEROSOL 1 PUFF 2 PUFF INHALATION ×2 (14:33→21:30)
[2022-09-11] MEDS: FINASTERIDE 5 MG TABLET PO (20:34)
[2022-09-11] MEDS: SIMVASTATIN 20 MG TABLET PO (20:34)
[2022-09-11 21:31] VITALS: O2SAT 97
[2022-09-11 22:10] VITALS: BP 140/87; PULSE 66; RESP 16; TEMP 36.6; O2SAT 93
[2022-09-12] MEDS: ALBUTEROL SULFATE (*SP) AEROSOL 1 PUFF 2 PUFF INHALATION ×2 (03:00→07:45)
[2022-09-12 05:23] LABS: Basophils Percent Auto 0.1 % (0.2-1.2); Hematocrit 39.6 % (42.0-52.0); Hemoglobin 12.8 g/dL (14.0-18.0); Immature Granulocyte Absolute 0.03 K/mm3 (0.00-0.031); Immature Granulocyte Percent A 0.4 % (0-0.5); Lymphocytes Absolute Auto 0.84 K/mm3 (0.9-3.2); Lymphocytes Percent Auto 11.8 % (18.3-44.2); Mean Corpuscular HGB Conc 32.3 g/dl (32-36); Mean Corpuscular Hemoglobin 30.9 pg (26-34); Mean Corpuscular Volume 95.7 fl (80-100); Mean Platelet Volume 9.5 fl (7.4-10.4); Monocytes Absolute Auto 0.9 K/mm3 (0.1-0.6); Monocytes Percent Auto 13.1 % (2.6-8.5); Neutrophils Absolute Auto 5.3 K/mm3 (1.3-6.7); Neutrophils Percent Auto 74.6 % (45.5-73.1); Platelet Count Result 188 k/mm3 (150-375); Red Blood Count 4.14 M/mm3 (4.6-6.20); Red Cell Distribution Width 13.9 % (11.5-14.5); White Blood Count 7.1 K/mm3 (4.5-10.0)
[2022-09-12 05:35] LABS: Alanine Aminotransferase 18 U/L (6-50); Albumin Level 3.5 g/dL (3.5-5.1); Alkaline Phosphatase 77 U/L (38-126); Anion Gap 4 mmol/L (8-16); Aspartate Amino Transferase 29 U/L (17-59); Bilirubin,Total 0.8 mg/dL (0.2-1.3); Blood Urea Nitrogen 20 mg/dL (9-20); Calcium 8.6 mg/dL (8.4-10.2); Carbon Dioxide 30 mmol/L (22-30); Chloride 96 mmol/L (98-107); Estimated CRCL calculation 54 ml/min; Estimated Glomerular Filt Rate > 60; Glucose 132 mg/dL (65-110); Potassium 4.2 mmol/L (3.4-5.0); Sodium 130 mmol/L (137-145)
[2022-09-12 05:48] LABS: CRP 18.4 mg/dL (<1.0)
[2022-09-12 06:00] VITALS: BP 150/76; PULSE 69; RESP 16; TEMP 36.1; O2SAT 94
--- NOTE | 2022-09-12 07:13 | P.PNIM_ITS ---
Progress Note: A&P Assessment and Plan (1) COVID: Code(s): U07.1 - COVID-19 Status: Acute Assessment and Plan: Acute, COVID19 PCR positive 09/09/22, per report patient has received multiple COVID19 vaccinations. * No supplemental oxygen needs at this time- hold Remdesivir and Decadron. * Continue supportive care- PRN albuterol MDI, acetaminophen PO PRN for fever/ pain, and tessalon perles for cough. * saline lock IV fluids if taking good PO. * Repeat chest x-ray suggests worsening pneumonia as reviewed by myself and collaborating physician. * No leukocytosis WBC 7.7- hold antibiotics at this time. * Trend CBC, CRP, and chemistry * currently on pradaxa for PAF which will be continued. * Escalate care if patient's condition worsens or has hypoxia. * CRP trending up 1 to 2.3 to 7.9 * Procalcitonin 0.2 * blood cultures negative to date. * spO2 decreased 92% from yesterday. Patient has difficulty following commands for expectorating mucous and given his history of stroke this places him at high risk for worsening pneumonia and complications. * Add dexamethasone 6 mg IV 09/11/22 and continue 6 mg daily x 10 days. * change Albuterol MDI 2 puffs Q6 hours. * encourage incentive spirometer Q2 hours while awake and PEP therapy. (2) Generalized muscle weakness: Code(s): M62.81 - Muscle weakness (generalized) Status: Acute Assessment and Plan: 2/2 COVID19 pneumonia. * supportive care as above. * Consult PT/OT- patient lives alone with his and has home health nurse (3) Diastolic heart failure: Qualifiers: Heart failure chronicity: acute on chronic Qualified Code(s): I50.33 - Acute on chronic diastolic (congestive) heart failure Code(s): I50.30 - Unspecified diastolic (congestive) heart failure Status: Chronic Assessment and Plan: chronic, diastolic dysfunction, not in acute exacerbation. * Monitor volume status * He does not appear volume overloaded and in fact appears mildly dehydrated. * saline locked IV fluids. Monitor I/O. (4) History of stroke: Code(s): Z86.73 - Personal history of transient ischemic attack (TIA), and cerebral infarction without residual deficits Status: Chronic Assessment and Plan: No new focal deficits. 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 * Continue pradaxa, simvastatin and aspirin. * Avoid hyper or hypotension (5) Paroxysmal atrial fibrillation: Code(s): I48.0 - Paroxysmal atrial fibrillation Status: Chronic Assessment and Plan: H/O PAF, EKG today SR with frequent PAC couplets and RBBB * Continue Pradaxa BID * Rate controlled. * Monitor vital signs. (6) Hypertension: Qualifiers: Hypertension type: primary hypertension Qualified Code(s): I10 - Essential (primary) hypertension Code(s): I10 - Essential (primary) hypertension Status: Chronic Assessment and Plan: chronic, BP mildly elevated. * On Finasteride for BPH. * PRN hydralazine IV for SBP>160 or DBP>100 (7) CAD (coronary artery disease): Qualifiers: Coronary Disease-Associated Artery/Lesion type: [place] artery [place] vs. transplanted heart: [place] heart Associated angina: without angina Qualified Code(s): I25.10 - Atherosclerotic heart disease of [place] coronary artery without angina pectoris Code(s): I25.10 - Atherosclerotic heart disease of [place] coronary artery without angina pectoris Status: Chronic Assessment and Plan: H/O angioplasty in 2015 per rec
--- NOTE | 2022-09-12 07:13 | PM.IMPN ---
Progress Note: A&P Assessment and Plan (1) COVID: Code(s): U07.1 - COVID-19 Status: Acute Assessment and Plan: Acute, COVID19 PCR positive 09/09/22, per report patient has received multiple COVID19 vaccinations. No supplemental oxygen needs at this time- hold Remdesivir and Decadron. Continue supportive care- PRN albuterol MDI, acetaminophen PO PRN for fever/pain, and tessalon perles for cough. saline lock IV fluids if taking good PO. Repeat chest x-ray suggests worsening pneumonia as reviewed by myself and collaborating physician. No leukocytosis WBC 7.7- hold antibiotics at this time. Trend CBC, CRP, and chemistry currently on pradaxa for PAF which will be continued. Escalate care if patient's condition worsens or has hypoxia. CRP trending up 1 to 2.3 to 7.9 Procalcitonin 0.2 blood cultures negative to date. spO2 decreased 92% from yesterday. Patient has difficulty following commands for expectorating mucous and given his history of stroke this places him at high risk for worsening pneumonia and complications. Add dexamethasone 6 mg IV 09/11/22 and continue 6 mg daily x 10 days. change Albuterol MDI 2 puffs Q6 hours. encourage incentive spirometer Q2 hours while awake and PEP therapy. (2) Generalized muscle weakness: Code(s): M62.81 - Muscle weakness (generalized) Status: Acute Assessment and Plan: 2/2 COVID19 pneumonia. supportive care as above. Consult PT/OT- patient lives alone with his and has home health nurse (3) Diastolic heart failure: Qualifiers: Heart failure chronicity: acute on chronic Qualified Code(s): I50.33 - Acute on chronic diastolic (congestive) heart failure Code(s): I50.30 - Unspecified diastolic (congestive) heart failure Status: Chronic Assessment and Plan: chronic, diastolic dysfunction, not in acute exacerbation. Monitor volume status He does not appear volume overloaded and in fact appears mildly dehydrated. saline locked IV fluids. Monitor I/O. (4) History of stroke: Code(s): Z86.73 - Personal history of transient ischemic attack (TIA), and cerebral infarction without residual deficits Status: Chronic Assessment and Plan: No new focal deficits. 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 Continue pradaxa, simvastatin and aspirin. Avoid hyper or hypotension (5) Paroxysmal atrial fibrillation: Code(s): I48.0 - Paroxysmal atrial fibrillation Status: Chronic Assessment and Plan: H/O PAF, EKG today SR with frequent PAC couplets and RBBB Continue Pradaxa BID Rate controlled. Monitor vital signs. (6) Hypertension: Qualifiers: Hypertension type: primary hypertension Qualified Code(s): I10 - Essential (primary) hypertension Code(s): I10 - Essential (primary) hypertension Status: Chronic Assessment and Plan: chronic, BP mildly elevated. On Finasteride for BPH. PRN hydralazine IV for SBP>160 or DBP>100 (7) CAD (coronary artery disease): Qualifiers: Coronary Disease-Associated Artery/Lesion type: [place] artery [place] vs. transplanted heart: [place] heart Associated angina: without angina Qualified Code(s): I25.10 - Atherosclerotic heart disease of [place] coronary artery without angina pectoris Code(s): I25.10 - Atherosclerotic heart disease of [place] coronary artery without angina pectoris Status: Chronic Assessment and Plan: H/O angioplasty in 2015 per records. Continue aspirin and simvastatin. (8) Anxiety: Code(s): F41.9 - Anxiety disorder, unspecified Status: Chronic Assessment and Plan: chronic, stable. Continue Lexapro. (9) GERD (gastroesophageal reflux disease): Qualifiers: Esophagitis presence: esophagitis presence not specified Qualified Code(s): K21.9 - Gastro-esophageal reflux disease without esophagit
[2022-09-12 07:46] VITALS: PULSE 72; RESP 18
[2022-09-12 08:50] VITALS: RESP 18; O2SAT 94
[2022-09-12] MEDS: DEXAMETHASONE 2 MG TABLET 6 MG PO (11:25)
[2022-09-12] MEDS: FAMOTIDINE 10 MG TABLET PO (11:26)
[2022-09-12] MEDS: ASPIRIN 81 MG ENTERIC TABLET PO (11:26)
[2022-09-12] MEDS: guaiFENesin 12 HR 600 MG TABCR PO (11:26)
[2022-09-12] MEDS: ESCITALOPRAM OXALATE 5 MG TABLET PO (11:26)
[2022-09-12] MEDS: DABIGATRAN ETEXILATE 75 MG CAPSULE PO (11:26)
--- NOTE | 2022-09-12 12:18 | P.DS_ITS ---
DS: Admitting Diagnosis Discharge Date 09/12/22 Admitting Diagnosis Weakness DS: Discharge Diagnosis Discharge Diagnosis (1) COVID: Code(s): U07.1 - COVID-19 Status: Acute Assessment and Plan: Acute, COVID19 PCR positive 09/09/22, per report patient has received multiple COVID19 vaccinations. * No supplemental oxygen needs at this time- hold Remdesivir and Decadron. * Continue supportive care- PRN albuterol MDI, acetaminophen PO PRN for fe linsey/pain, and tessalon perles for cough. * saline lock IV fluids if taking good PO. * Repeat chest x-ray suggests worsening pneumonia as reviewed by myself and collaborating physician. * No leukocytosis WBC 7.7- hold antibiotics at this time. * Trend CBC, CRP, and chemistry * currently on pradaxa for PAF which will be continued. * Escalate care if patient's condition worsens or has hypoxia. * CRP trending up 1 to 2.3 to 7.9 * Procalcitonin 0.2 * blood cultures negative to date. * spO2 decreased 92% from yesterday. Patient has difficulty following commands for expectorating mucous and given his history of stroke this places him at high risk for worsening pneumonia and complications. * Add dexamethasone 6 mg IV 09/11/22 and continue 6 mg daily x 10 days. * change Albuterol MDI 2 puffs Q6 hours. * encourage incentive spirometer Q2 hours while awake and PEP therapy. (2) Generalized muscle weakness: Code(s): M62.81 - Muscle weakness (generalized) Status: Acute Assessment and Plan: 2/ COVID19 pneumonia. * supportive care as above. * Consult PT/OT- patient lives alone with his and has home health nurse (3) Diastolic heart failure: Qualifiers: Heart failure chronicity: acute on chronic Qualified Code(s): I50.33 - Acute on chronic diastolic (congestive) heart failure Code(s): I50.30 - Unspecified diastolic (congestive) heart failure Status: Chronic Assessment and Plan: chronic, diastolic dysfunction, not in acute exacerbation. * Monitor volume status * He does not appear volume overloaded and in fact appears mildly dehydrated. * saline locked IV fluids. Monitor I/O. (4) History of stroke: Code(s): Z86.73 - Personal history of transient ischemic attack (TIA), and cerebral infarction without residual deficits Status: Chronic Assessment and Plan: No new focal deficits. 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 * Continue pradaxa, simvastatin and aspirin. * Avoid hyper or hypotension (5) Paroxysmal atrial fibrillation: Code(s): I48.0 - Paroxysmal atrial fibrillation Status: Chronic Assessment and Plan: H/O PAF, EKG today SR with frequent PAC couplets and RBBB * Continue Pradaxa BID * Rate controlled. * Monitor vital signs. (6) Hypertension: Qualifiers: Hypertension type: primary hypertension Qualified Code(s): I10 - Essential (primary) hypertension Code(s): I10 - Essential (primary) hypertension Status: Chronic Assessment and Plan: chronic, BP mildly elevated. * On Finasteride for BPH. * PRN hydralazine IV for SBP>160 or DBP>100 (7) CAD (coronary artery disease): Qualifiers: Associated angina: without angina Coronary Disease-Associated Artery/Lesion type: [place] artery [place] vs. transplanted heart: [place] heart Qualified Code(s): I25.10 - Atherosclerotic heart disease of [place] coronary artery without angina pectoris Code(s): I25.10 - Atherosclerotic heart disease of [place] coronary artery without angin
--- NOTE | 2022-09-12 12:18 | PM.DS ---
DS: Admitting Diagnosis Discharge Date 09/12/22 Admitting Diagnosis Weakness DS: Discharge Diagnosis Discharge Diagnosis (1) COVID: Code(s): U07.1 - COVID-19 Status: Acute Assessment and Plan: Acute, COVID19 PCR positive 09/09/22, per report patient has received multiple COVID19 vaccinations. No supplemental oxygen needs at this time- hold Remdesivir and Decadron. Continue supportive care- PRN albuterol MDI, acetaminophen PO PRN for fever/pain, and tessalon perles for cough. saline lock IV fluids if taking good PO. Repeat chest x-ray suggests worsening pneumonia as reviewed by myself and collaborating physician. No leukocytosis WBC 7.7- hold antibiotics at this time. Trend CBC, CRP, and chemistry currently on pradaxa for PAF which will be continued. Escalate care if patient's condition worsens or has hypoxia. CRP trending up 1 to 2.3 to 7.9 Procalcitonin 0.2 blood cultures negative to date. spO2 decreased 92% from yesterday. Patient has difficulty following commands for expectorating mucous and given his history of stroke this places him at high risk for worsening pneumonia and complications. Add dexamethasone 6 mg IV 09/11/22 and continue 6 mg daily x 10 days. change Albuterol MDI 2 puffs Q6 hours. encourage incentive spirometer Q2 hours while awake and PEP therapy. (2) Generalized muscle weakness: Code(s): M62.81 - Muscle weakness (generalized) Status: Acute Assessment and Plan: 2 COVID19 pneumonia. supportive care as above. Consult PT/OT- patient lives alone with his and has home health nurse (3) Diastolic heart failure: Qualifiers: Heart failure chronicity: acute on chronic Qualified Code(s): I50.33 - Acute on chronic diastolic (congestive) heart failure Code(s): I50.30 - Unspecified diastolic (congestive) heart failure Status: Chronic Assessment and Plan: chronic, diastolic dysfunction, not in acute exacerbation. Monitor volume status He does not appear volume overloaded and in fact appears mildly dehydrated. saline locked IV fluids. Monitor I/O. (4) History of stroke: Code(s): Z86.73 - Personal history of transient ischemic attack (TIA), and cerebral infarction without residual deficits Status: Chronic Assessment and Plan: No new focal deficits. 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 Continue pradaxa, simvastatin and aspirin. Avoid hyper or hypotension (5) Paroxysmal atrial fibrillation: Code(s): I48.0 - Paroxysmal atrial fibrillation Status: Chronic Assessment and Plan: H/O PAF, EKG today SR with frequent PAC couplets and RBBB Continue Pradaxa BID Rate controlled. Monitor vital signs. (6) Hypertension: Qualifiers: Hypertension type: primary hypertension Qualified Code(s): I10 - Essential (primary) hypertension Code(s): I10 - Essential (primary) hypertension Status: Chronic Assessment and Plan: chronic, BP mildly elevated. On Finasteride for BPH. PRN hydralazine IV for SBP>160 or DBP>100 (7) CAD (coronary artery disease): Qualifiers: Associated angina: without angina Coronary Disease-Associated Artery/Lesion type: [place] artery [place] vs. transplanted heart: [place] heart Qualified Code(s): I25.10 - Atherosclerotic heart disease of [place] coronary artery without angina pectoris Code(s): I25.10 - Atherosclerotic heart disease of [place] coronary artery without angina pectoris Status: Chronic Assessment and Plan: H/O angioplasty in 2015 per records. Continue aspirin and simvastatin. (8) Anxiety: Code(s): F41.9 - Anxiety disorder, unspecified Status: Chronic Assessment and Plan: chronic, stable. Continue Lexapro. (9) GERD (gastroesophageal reflux disease): Qualifiers: Esophagitis presence: esophagitis presence not s
== END 2022-09-12 14:25 | disposition home health service (06) | DRG 177 ==
LOC: ANHED 08:21 → ANH2MED 11:11
PROVIDERS: Nurse Practitioner Family; Physician Assistant; Admitting Provider Internal Medicine; Emergency Provider Emergency Medicine; PCP Internal Medicine; Visit Provider Internal Medicine Critical Care Medicine
DX: U07.1 COVID-19 (principal); J12.82 Pneumonia due to coronavirus disease 2019; I50.32 Chronic diastolic (congestive) heart failure; I69.351 Hemiplegia and hemiparesis following cerebral infarction affecting right dominant side; I69.320 Aphasia following cerebral infarction; E86.0 Dehydration; F41.8 Other specified anxiety disorders; I48.0 Paroxysmal atrial fibrillation; I11.0 Hypertensive heart disease with heart failure; K21.9 Gastro-esophageal reflux disease without esophagitis; I25.10 Atherosclerotic heart disease of native coronary artery without angina pectoris; M81.0 Age-related osteoporosis without current pathological fracture; N40.0 Benign prostatic hyperplasia without lower urinary tract symptoms; Z85.01 Personal history of malignant neoplasm of esophagus; Z95.818 Presence of other cardiac implants and grafts; Z79.82 Long term (current) use of aspirin; Z90.49 Acquired absence of other specified parts of digestive tract; Z66 Do not resuscitate
CPT/HCPCS: 36415; 71045; 80048; 80053; 81001; 82607; 82746; 83605; 83690; 84145; 84443; 85025; 85610; 85730; 86140; 87040; 87637; 93005; 94640; 94667; 96361; 96374; 97110; 97161; 97165; 97530; 99285; A9270; G0378; J1100; J7030; J8540

== ENCOUNTER 2022-09-16 18:09 | Inpatient (IN) | payer MEDICARE, SELFPAY ==
[2022-09-16] VITALS (8 sets, daily range): BP systolic 132–159; BP diastolic 72–87; PULSE 62–74; RESP 14–21; TEMP 36.1–37.4; O2SAT 94–98; BMI 21.1
--- NOTE | ~2022-09-16 | XR_ITS ---
EXAMINATION: XR chest 2V DATE: 09/21/2022 15:34 INDICATION: Leukocytosis and cough TECHNIQUE: AP and lateral views of the chest are obtained. COMPARISON: 09/19/2022 FINDINGS: Diffuse opacities persist throughout all lung zones with slight improvement. There are smal l pleural effusions. No pneumothorax is identified. There is a large hiatal hernia. Cardiac monitorin g device is projected over the left heart anteriorly. There is severe thoracic spondylosis. IMPRESSION: 1. Diffuse lung disease with interval improvement, consistent with improving pneumonia superimposed o n chronic interstitial lung disease. Reviewed, dictated and finalized at location B. [facility]NAGER IMPRESSION: 1. Diffuse lung disease with interval improvement, consistent with improving pn [place] superimposed on chronic interstitial lung disease.
--- NOTE | ~2022-09-16 | XR_ITS ---
Portable chest x-ray Comparison: 09/11/2022 Clinical History: Hypoxia Findings: There is mild diffuse groundglass and interstitial disease. Cardiomediastinal silhouette is stable. Cardiac monitoring devices are unchanged. Bones and soft tissues are unremarkable. Impression: Stable groundglass and interstitial disease diffusely. Correlate for chronic interstitial disease and /or superimposed acute pulmonary edema or infection. Reviewed, dictated and finalized at location . [employer] Impression: Stable groundglass and interstitial disease diffusely. Correlate for chronic in terstitial disease and/or superimposed acute pulmonary edema or infection.
--- NOTE | ~2022-09-16 | CT_ITS ---
Clinical Indication: Code 19 positive, hypoxia CT Scan of the Chest with Contrast: Technique: Contiguous sections were acquired throughout the chest after intravenous administration of 100 cc of Omnipaque 350. Dose reduction technique was used on this scan by utilizing automated expos ure control and iterative reconstruction technique. The dose-length product (DLP) was 335.52 mGy-cm. Findings: There is no evidence of any significant mediastinal, hilar or axillary lymphadenopathy. There is no f illing defect in the pulmonary arterial tree to suggest pulmonary embolus. There is no evidence of ao rtic dissection or aneurysm. There is no evidence of pleural or pericardial effusion. There is right lower lobe consolidation, suspicious for pneumonia. There is mild left basilar atelect atic change versus possibly additional pneumonia. There is extensive subpleural reticulation with ext ensive peripheral interstitial thickening, compatible with chronic interstitial disease. Images through the upper abdomen reveal small calcified gallstones. Large hiatal hernia is present, c ontaining essentially the entire stomach. Impression: No evidence of pulmonary embolus, aortic dissection, or aortic aneurysm. Right lower lobe pneumonia. Questionable additional involvement at the left lung base focally versus left basilar atelectatic change. Underlying chronic pulmonary interstitial disease, with peripheral distribution. Large hiatal hernia, which contains essentially the entire stomach. Reviewed, dictated and finalized at location M. [employer]SEM[employer] Impression: No evidence of pulmonary embolus, aortic dissection, or aortic aneurysm. Right lower lobe pneumonia. Questionable additional involvement at the left vidhya g base focally versus left basilar atelectatic change. Underlying chronic pulmonary interstitial disease, with peripheral distribution . Large hiatal hernia, which contains essentially the entire stomach.
--- NOTE | 2022-09-16 18:18 | ECG_ITS ---
Measurements Intervals [place] Rate: 74 P: 35 ID: 139 QRS: 28 QRSD: 100 T: -2 QT: 353 QTc: 392 Interpretive Statements SINUS RHYTHM MINOR ST SEGMENT CHANGE BORDERLINE ECG COMPARED TO ECG 09/09/2022 01:14:03 RIGHT BUNDLE BRANCH BLOCK HAS RESOLVED Electronically Signed On 09-17-2022 11:59:41 [employer] by Eloy Sapp M.D.
--- NOTE | 2022-09-16 18:25 | ED.URI ---
HPI - URI/Sore Throat General Chief Complaint: Upper Respiratory Infection Stated Complaint: COVID +, LETHARGIC, SOB Time Seen by Provider: 09/16/22 18:21 Source: patient, family, EMS and old records reviewed Mode of arrival: EMS Limitations: physical limitation History of Present Illness HPI Narrative: Patient is a 81 y/o male who presents to the ED via EMS with report of lethargy, COVID-19. Patient's at bedside assisted in providing information. Patient has a history of a previous CVA with right-sided deficits and aphasia. He is essentially nonverbal. Patient was recently admitted to the hospital here for COVID-19, weakness, lethargy. He was not hypoxic initially upon admission, but they did note oxygen saturations dropping and he was started on steroids. reports patient has been increasingly weak, lethargic, fatigued, decreased PO intake. She states he has required full attention and she is unable to take care of him on her own. She states patient has not seemed visibly short of breath, but his oxygen saturations have ranged from 87%-mid 90s. Patient was not discharged on oxygen. Per EMS, patient was hypoxic into the upper 80s and placed on nasal cannula. Patient unable to provide any information due to aphasic status. Patient febrile 100.7 upon arrival to the ED, oral temp. Related Data Home Medications Medication Instructions Recorded Confirmed aspirin 81 mg tablet,delayed 81 mg PO DAILY 02/08/20 09/16/22 release (Adult Aspirin Regimen) dabigatran etexilate 75 mg capsule 75 mg PO BID 02/08/20 09/16/22 (Pradaxa) escitalopram oxalate [Lexapro] 5 mg PO DAILY 02/08/20 09/16/22 finasteride 5 mg PO DAILY 02/08/20 09/16/22 potassium citrate 15 mEq (1,620 15 meq PO DAILY 09/09/22 09/16/22 mg) tablet,extended release simvastatin 20 mg tablet 20 mg PO HS 09/09/22 09/16/22 Allergies Allergy/AdvReac Type Severity Reaction Status Date / Time No Known Allergies Allergy Verified 09/16/22 23:39 Review of Systems Review of Systems: ROS unobtainable: Yes unobtainable due to medical condition PMFSH Past Medical History Medical History Actinic keratosis Allergic rhinitis Anxiety With depression Arthritis BPH (benign prostatic hyperplasia) CAD (coronary artery disease) History of CAD and stent in 2014, per patient's Diastolic heart failure Hip fracture due to osteoporosis History of CVA in adulthood Expressive aphasia and right-sided weakness. 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 The patient quit smoking many years ago. He has 3 biological children and 2 step children and he adopted a grand child. He is retired from [employer] still. He denies any alcohol marijuana illicit drugs. One biological child is and 1 stepchild is . Code status DNR Smoking packs per day: 1 Smoking cigarettes per day: 20.0 Years smoked: 25 Smoking pack-years: 25.00 Smoking status: Former smoker Tobacco type: cigarettes Alcohol intake: never Substance use: never Lack of Transportation: No Lack of Food: Never True Curren
[2022-09-16 18:49] LABS: Basophils Percent Auto 0.3 % (0.2-1.2); Eosinophils Percent Auto 0.3 % (0-4.4); Hematocrit 37.5 % (42.0-52.0); Hemoglobin 12.3 g/dL (14.0-18.0); Immature Granulocyte Absolute 0.13 K/mm3 (0.00-0.031); Immature Granulocyte Percent A 1.3 % (0-0.5); Lymphocytes Absolute Auto 0.83 K/mm3 (0.9-3.2); Lymphocytes Percent Auto 8.6 % (18.3-44.2); Mean Corpuscular HGB Conc 32.8 g/dl (32-36); Mean Corpuscular Hemoglobin 30.9 pg (26-34); Mean Corpuscular Volume 94.2 fl (80-100); Mean Platelet Volume 9.3 fl (7.4-10.4); Monocytes Absolute Auto 1.2 K/mm3 (0.1-0.6); Monocytes Percent Auto 12.3 % (2.6-8.5); Neutrophils Absolute Auto 7.5 K/mm3 (1.3-6.7); Neutrophils Percent Auto 77.2 % (45.5-73.1); Platelet Count Result 265 k/mm3 (150-375); Red Blood Count 3.98 M/mm3 (4.6-6.20); Red Cell Distribution Width 14.1 % (11.5-14.5); White Blood Count 9.7 K/mm3 (4.5-10.0)
[2022-09-16 18:57] LABS: Lactic Acid Reflex 1.2 mmol/L (0.7-2.0)
[2022-09-16 18:58] LABS: Alanine Aminotransferase 68 U/L (6-50); Alkaline Phosphatase 87 U/L (38-126); Anion Gap 3 mmol/L (8-16); Aspartate Amino Transferase 48 U/L (17-59); Bilirubin,Total 0.8 mg/dL (0.2-1.3); Blood Urea Nitrogen 22 mg/dL (9-20); Carbon Dioxide 32 mmol/L (22-30); Chloride 101 mmol/L (98-107); Estimated CRCL calculation 69 ml/min; Estimated Glomerular Filt Rate > 60; Glucose 156 mg/dL (65-110); Potassium 3.5 mmol/L (3.4-5.0); Sodium 136 mmol/L (137-145)
[2022-09-16 18:59] LABS: INR 1.4
[2022-09-16 19:00] LABS: Partial Thromboplastin Time 37.8 SECONDS (22.3-36.8)
--- NOTE | 2022-09-16 19:00 | PC.NURSE ---
Assumed care of pt. at this time. report from Carley FARIAS
[2022-09-16 19:10] LABS: NT Pro B Type Natriuretic Pept 656 pg/mL (19.9-100); Troponin I < 0.012 ng/mL (0.000-0.034)
--- NOTE | 2022-09-16 19:58 | PC.NURSE ---
PT. to CT
--- NOTE | 2022-09-16 20:56 | PM.IMHP ---
H&P: HPI History of Present Illness Date/Time: 09/16/22 20:56 Chief Complaint: Upper respiratory infection Narrative: This is a 81-year-old male patient who was just discharged from this facility on 09/12/2022. The patient was treated for COVID he was found to be positive on 09/09/2022. The patient had no oxygen needs at that time and did not receive any remdesivir and Decadron. Patient had conservative care. However prior to discharge the patient had an O2 saturation of 92% and was started on Decadron. The patient was then discharged to home with home health. However the patient is too weak now and the is not able to care for him at this point. Patient is now receiving oxygen at 2 L per nasal cannula. He also has a history of previous CVA with right-sided deficits and aphasia. He is nonverbal. The patient has already finished his steroids as of yesterday. His oxygen saturations are anywhere from 87% to 90 now. Patient was febrile with a temperature of 100.7? upon arrival to the emergency room. He does not have a white count. His H&H is 12.3 and 37.5 which is his baseline. ABGs were obtained patient's pH was 7.508 PO2 was 78.1 and bicarb 30.6. The patient is a DNR. Sodium 136. The patient was given IV Tylenol, a azithromycin Rocephin IV fluids and Decadron. He was given 2 L of normal saline. Chest CTA was read as the followingNo evidence of pulmonary embolus, aortic dissection, or aortic aneurysm. Right lower lobe pneumonia. Questionable additional involvement at the left lung base focally versus left basilar atelectatic change. Underlying chronic pulmonary interstitial disease, with peripheral distribution. Large hiatal hernia, which contains essentially the entire stomach. The patient is being admitted to observation status on the date of service of 09/16/2022 Review of Systems Review of Systems: See HPI All systems reviewed & are unremarkable except as noted in HPI and below Constitutional: Constitutional: Reports as per HPI and Reports no additional constitutional complaints Eyes: Eyes: Reports as per HPI and Reports no additional eye complaints ENT: Reports system reviewed and no additional complaints, except as documented and Reports Normal hearing present Cardiovascular: Cardiovascular: Reports no additional cardiovascular complaints Respiratory: Respiratory: Reports no additional respiratory complaints and Reports no additional respiratory complaints Gastrointestinal: Gastrointestinal: Reports as per HPI and Reports no additional gastrointestinal complaints Musculoskeletal: Musculoskeletal: Reports no additional musculoskeletal complaints Integumentary/Breasts: Skin/Breast: Reports system reviewed and no additional complaints, except as docu and Reports as per HPI Neurologic: Reports system reviewed and no additional complaints, except as documented, Reports as per HPI and Reports Normal hearing present Psychiatric: Psychiatric: Reports no additional psychiatric complaints and Reports as per HPI Endocrine: Endocrine: Reports no additional endocrine complaints Hematologic/Lymphatic: Hematologic/Lymphatic: Reports no additional hematologic/lymphatic complaints Allergic/Immunologic: Allergic/Immunologic: Reports no additional allergic/immunologic complaints COUNTS INCLUDE 234 BEDS AT THE [facility] Past Medical History Medical History Actinic keratosis Allergic rhinitis Anxiety With depression Arthritis BPH (benign prostatic hyperplasia) CAD (coronary artery disease) History of CAD and stent in 2014, per patient's Diastolic heart failure Hip fracture due to osteoporosis History of CVA in adulthood Expressive aphasia and right-sided weakness. History of malignant neoplasm of esophagus Status post esophagectomy without any radiation or chemotherapy History of stroke Hypertension Paroxysmal atrial fibrillation Presence of Watchman left atrial appendage closure device Pul
[2022-09-16 21:52] LABS: Alveolar/Arterial O2 Gradient 75.1 mmHg; Base Excess ABG 7.1 mEq/l (+/-2.0); Fractional Inspired Oxygen 28 %; HCO3 ABG 30.6 mEq/l (22.0-26.0); Oxygen Saturation ABG 96.5 % (95.0-100.0); PCO2 ABG 39.4 mmHg (35.0-45.0); PO2 ABG 78.1 mmHg (80.0-100.0); PO2 FiO2 Ratio Arterial Blood 2.79 %
[2022-09-16 21:56] LABS: Device NASAL CANNULA; Modified Allen's Test Pass; Site Drawn RIGHT RADIAL; pH ABG 7.508 (7.350-7.450)
[2022-09-16] MEDS: SODIUM CHLORIDE 0.9% IV 1,000 ML 999 ML IV CONT ×2 (22:14→22:15)
--- NOTE | 2022-09-16 23:30 | ADMGEN ---
This patient, Eric Barry, was admitted to Medical Room 253-01. Patient/family oriented to hospital policies and general routines including ID bracelet, bed and alarms, visiting hours, pain management, procedures, bathroom and other care routines, personal items, smoking policy, room service/diet, and visiting hours. Information on how to activate the Rapid Response Team has been discussed. Patient/Family are encouraged to report perceived risks to care and to ask questions if they do not understand what they are told or what they should do.
[2022-09-17] VITALS (14 sets, daily range): BP systolic 155–177; BP diastolic 75–89; PULSE 36–77; RESP 16–20; TEMP 36–36.4; O2SAT 96–99; BMI 21.1
--- NOTE | 2022-09-17 | ECHO_ITS ---
Patient Info Name: Eric Barry Age: 81 years : 1940 Gender: Male Ht: 68 in Wt: 139 lbs BSA: 1.74 m2 HR: 67 bpm BP: 155 / 76 mmHg Heart Rhythm: Sinus Rhythm Exam Date: 09/17/2022 10:41 AM Exam Location: [facility] Patient Status: Outpatient Admit Date: 09/16/2022 Staff Ordering Physician: Tarah Meza NP Screen Tender Helper: Quintin Downs RDCS, RT Attending Provider: Kriss Goldman PA-C Referring Physician: Derrick FLETCHER; Exam Type: CA echo doppler color flow Study Info Indications I50.9 - Heart failure, unspecified Complete two-dimensional, color flow and Doppler transthoracic echocardiogram is performed. Summary 1. Complete two-dimensional, color flow and Doppler transthoracic echocardiogram is performed. 2. Left ventricular chamber dimension is normal. 3. Left ventricular systolic function is normal, estimated at 55-60%. 4. There is mildly increased left ventricular wall thickness. 5. The left ventricular diastolic function is grade III diastolic dysfunction. 6. Right atrial chamber dimension is moderately enlarged. 7. There is no aortic valve stenosis. 8. There is mild mitral valve regurgitation. Left Ventricle Left ventricular chamber dimension is normal. Left ventricular systolic function is normal, estimated at 55-60%. There is mildly increased left ventricular wall thickness. The left ventricular diastolic function is grade III diastolic dysfunction. Right Ventricle Right ventricular chamber dimension is normal. Right ventricular systolic function is normal. Left Atria Left atrial chamber dimension is mildly enlarged. Right Atria Right atrial chamber dimension is moderately enlarged. Aortic Valve The aortic valve is trileaflet. There is mild aortic valve sclerosis. There is no aortic valve stenosis. There is no aortic valve regurgitation. Pulmonic Valve The pulmonic valve is not well visualized. Mitral Valve The mitral valve has normal leaflets. There is mild mitral valve regurgitation. The mitral valve annulus is mildly calcified. Tricuspid Valve The tricuspid valve leaflets are normal. There is mild tricuspid valve regurgitation. Unable to assess PA systolic pressure due to poor spectral resolution of tricuspid regurgitant jet velocity. Pericardium/Pleural The pericardium appears epicardial fat pad. Inferior Vena Cava Normal inferior vena cava with >50% collapse upon inspiration consistent with normal right atrial pressure, 5 mmHg. Aorta The aortic root size at the sinus of Valsalva is normal. There is mild aortic atherosclerosis. Left Ventricular Outflow Tract Name Value Normal LVOT Doppler LVOT Peak Gradient 2 mmHg LVOT Mean Gradient 1 mmHg LVOT VTI 17 cm LVOT VTI/AV VTI Ratio 0.6 Mitral Valve Name Value Normal MV Doppler MV Decel Webb 319 cm/s2
[2022-09-17] MEDS: SODIUM CHLORIDE 0.9% IV 1,000 ML 100 ML IV CONT ×3 (00:34→20:29)
[2022-09-17] MEDS: IPRATROPIUM BR 0.02% INH SOLN 0.5 MG/2.5 ML VIAL INHALATION ×4 (02:45→20:27)
[2022-09-17] MEDS: ALBUTEROL SULFATE NEB 2.5 MG/3 ML INH INHALATION ×4 (02:50→20:27)
[2022-09-17 05:32] LABS: Basophils Percent Auto 0.1 % (0.2-1.2); Hematocrit 35.5 % (42.0-52.0); Hemoglobin 11.6 g/dL (14.0-18.0); Immature Granulocyte Absolute 0.08 K/mm3 (0.00-0.031); Lymphocytes Absolute Auto 0.56 K/mm3 (0.9-3.2); Lymphocytes Percent Auto 6.7 % (18.3-44.2); Mean Corpuscular HGB Conc 32.7 g/dl (32-36); Mean Corpuscular Hemoglobin 31.7 pg (26-34); Monocytes Absolute Auto 0.4 K/mm3 (0.1-0.6); Monocytes Percent Auto 5.1 % (2.6-8.5); Neutrophils Absolute Auto 7.3 K/mm3 (1.3-6.7); Neutrophils Percent Auto 87.1 % (45.5-73.1); Platelet Count Result 236 k/mm3 (150-375); Red Blood Count 3.66 M/mm3 (4.6-6.20); Red Cell Distribution Width 14.1 % (11.5-14.5); White Blood Count 8.4 K/mm3 (4.5-10.0)
[2022-09-17 05:49] LABS: Lactic Acid Reflex 1.1 mmol/L (0.7-2.0)
[2022-09-17 05:53] LABS: Alanine Aminotransferase 68 U/L (6-50); Albumin Level 2.7 g/dL (3.5-5.1); Alkaline Phosphatase 89 U/L (38-126); Anion Gap 3 mmol/L (8-16); Aspartate Amino Transferase 56 U/L (17-59); Bilirubin,Total 0.8 mg/dL (0.2-1.3); Blood Urea Nitrogen 18 mg/dL (9-20); Calcium 7.5 mg/dL (8.4-10.2); Carbon Dioxide 29 mmol/L (22-30); Chloride 104 mmol/L (98-107); Estimated CRCL calculation 66 ml/min; Estimated Glomerular Filt Rate > 60; Glucose 161 mg/dL (65-110); Lactate Dehydrogenase 185 U/L (120-246); Magnesium 2.1 mg/dL (1.6-2.3); Potassium 3.7 mmol/L (3.4-5.0); Sodium 136 mmol/L (137-145)
[2022-09-17] MEDS: FINASTERIDE 5 MG TABLET PO (08:52)
[2022-09-17] MEDS: ESCITALOPRAM OXALATE 5 MG TABLET PO (08:52)
[2022-09-17] MEDS: ASPIRIN 81 MG ENTERIC TABLET PO (08:52)
[2022-09-17] MEDS: DABIGATRAN ETEXILATE 75 MG CAPSULE PO ×2 (08:52→16:16)
[2022-09-17] MEDS: POTASSIUM CITRATE 5 MEQ TAB CR 15 MEQ PO (08:53)
--- NOTE | 2022-09-17 16:09 | PM.IMPN ---
Progress Note: A&P Assessment and Plan (1) Acute respiratory failure with hypoxia: Code(s): J96.01 - Acute respiratory failure with hypoxia Status: Acute Assessment and Plan: Patient presented with hypoxia in mid upper 80s. Chest CTA was negative for PE but did reveal pneumonia which is the likely etiology. Patient currently requiring 2 L supplemental O2. O2 sats remaining stable in upper 90s. Wean oxygen as tolerated with goal sats 92% or above. Patient will require home O2 eval prior to discharge (2) COVID-19: Code(s): U07.1 - COVID-19 Status: Acute Assessment and Plan: Patient with initial COVID positive PCR on 09/09/2022 during which time he was started on dexamethasone and had received a total of 6 days at time of return to ED on 09/16 As he is requiring 2 L of oxygen, he has been continued on dexamethasone Hold on remdesivir at this time but will initiate if increased O2 demand. Continue supportive care to include incentive spirometry, Cornet, bronchodilators, expectorants. Continue isolation precautions. Patient has reportedly been vaccinated for COVID-19, however records unavailable for review in EMR (3) Pneumonia: Qualifiers: Laterality: right Lung location: lower lobe of lung Pneumonia type: due to unspecified organism Qualified Code(s): J18.9 - Pneumonia, unspecified organism Code(s): J18.9 - Pneumonia, unspecified organism Status: Acute Assessment and Plan: CTA on presentation demonstrates right lower lobe pneumonia with questionable additional involvement of the left lung base, not seen on previous imaging from last hospitalization given timing of symptoms, there is concern for secondary bacterial pneumonia. continue ceftriaxone and azithromycin supportive care as above (4) Generalized weakness: Code(s): R53.1 - Weakness Status: Acute Assessment and Plan: suspect acute on chronic, likely worsened due to acute COVID-19 infection patient no longer able to be cared for at home by his will likely require SNF placement following discharge implement fall precautions appreciate PT/OT eval (5) Paroxysmal atrial fibrillation: Code(s): I48.0 - Paroxysmal atrial fibrillation Status: Chronic Assessment and Plan: rate is controlled at this time continue home Pradaxa (6) History of stroke: Code(s): Z86.73 - Personal history of transient ischemic attack (TIA), and cerebral infarction without residual deficits Status: Chronic Assessment and Plan: with associated residual aphasia and right-sided weakness continue home Pradaxa, simvastatin, and aspirin Time Spent With Patient Time: 50 minutes spent on this encounter Time with patient: Greater than 35 minutes Subjective Date/time seen: 09/17/22 16:09 Interval history: date of service: 09/17/2022 Eric Barry is a 81-year-old male with a history of CAD, BPH, diastolic CHF, CVA with subsequent aphasia, paroxysmal atrial fibrillation s/p Watchman procedure maintained on Pradaxa, and pulmonary asbestosis who is seen in follow-up for COVID-19. patient is not able to provide any history given his aphasia. he was recently hospitalized from 09/09/2022-09/12/22 for treatment of COVID-19 and weakness. Reviewed details from prior hospitalization. Review of Systems Review of Systems: ROS unobtainable: Yes unobtainable due to mental status Exam Narrative: General: Thin, chronically ill-appearing 81-year-old male, supine in bed , comfortable, NARD Neuro: awake, alert, able to state his name, not able to answer any other questions verbally HEENMT: normocephalic, atraumatic, EOMI, sclerae anicteric, moist oral mucosa Respiratory: clear to auscultation bilaterally, nonlabored breathing Cardio: regular rate, regular rhythm with S1-S2 Abdomen: nondistended, normoactive bowel sounds,
[2022-09-17] MEDS: SIMVASTATIN 20 MG TABLET PO (20:23)
[2022-09-17] MEDS: guaiFENesin 12 HR 600 MG TABCR PO (20:23)
[2022-09-18] VITALS (10 sets, daily range): BP systolic 154–162; BP diastolic 77–89; PULSE 63–83; RESP 18–20; TEMP 36–36.2; O2SAT 96–100
[2022-09-18] MEDS: IPRATROPIUM BR 0.02% INH SOLN 0.5 MG/2.5 ML VIAL INHALATION ×3 (02:48→21:04)
[2022-09-18] MEDS: ALBUTEROL SULFATE NEB 2.5 MG/3 ML INH INHALATION ×3 (02:48→21:04)
[2022-09-18 05:48] LABS: Hematocrit 36.5 % (42.0-52.0); Hemoglobin 11.2 g/dL (14.0-18.0); Mean Corpuscular HGB Conc 30.7 g/dl (32-36); Mean Corpuscular Hemoglobin 30.2 pg (26-34); Mean Corpuscular Volume 98.4 fl (80-100); Mean Platelet Volume 9.5 fl (7.4-10.4); Platelet Count Result 235 k/mm3 (150-375); Red Blood Count 3.71 M/mm3 (4.6-6.20); Red Cell Distribution Width 13.7 % (11.5-14.5); White Blood Count 11.4 K/mm3 (4.5-10.0)
[2022-09-18 06:05] LABS: Anion Gap 3 mmol/L (8-16); Blood Urea Nitrogen 17 mg/dL (9-20); Calcium 7.6 mg/dL (8.4-10.2); Carbon Dioxide 27 mmol/L (22-30); Chloride 101 mmol/L (98-107); Estimated CRCL calculation 76 ml/min; Estimated Glomerular Filt Rate > 60; Glucose 124 mg/dL (65-110); Potassium 3.4 mmol/L (3.4-5.0); Sodium 131 mmol/L (137-145)
[2022-09-18] MEDS: ASPIRIN 81 MG ENTERIC TABLET PO (08:44)
[2022-09-18] MEDS: DABIGATRAN ETEXILATE 75 MG CAPSULE PO ×2 (08:45→16:43)
[2022-09-18] MEDS: FINASTERIDE 5 MG TABLET PO (08:46)
[2022-09-18] MEDS: guaiFENesin 12 HR 600 MG TABCR PO ×2 (08:46→20:45)
[2022-09-18] MEDS: ESCITALOPRAM OXALATE 5 MG TABLET PO (08:46)
--- NOTE | 2022-09-18 08:49 | PCOTNOTE ---
Attempted OT evaluation, patient just began eating breakfast, will follow.
[2022-09-18] MEDS: SODIUM CHLORIDE 0.9% IV 1,000 ML 100 ML IV CONT ×2 (08:52→19:22)
--- NOTE | 2022-09-18 16:10 | PM.IMPN ---
Progress Note: A&P Assessment and Plan (1) Acute respiratory failure with hypoxia: Code(s): J96.01 - Acute respiratory failure with hypoxia Status: Acute Assessment and Plan: Patient presented with hypoxia in mid upper 80s. Chest CTA was negative for PE but did reveal pneumonia which is the likely etiology. Patient currently requiring 2 L supplemental O2. O2 sats remaining stable in upper 90s. Wean oxygen as tolerated with goal sats 92% or above. Patient will require home O2 eval prior to discharge (2) COVID-19: Code(s): U07.1 - COVID-19 Status: Acute Assessment and Plan: Patient with initial COVID positive PCR on 09/09/2022 during which time he was started on dexamethasone and had received a total of 6 days at time of return to ED on 09/16 Given ongoing oxygen demand, he has been continued on dexamethasone Hold on remdesivir at this time but will initiate if increased O2 demand. Continue supportive care to include incentive spirometry, Cornet, bronchodilators, expectorants. Continue isolation precautions. Patient has reportedly been vaccinated for COVID-19, however records unavailable for review in EMR (3) Pneumonia: Qualifiers: Laterality: right Lung location: lower lobe of lung Pneumonia type: due to unspecified organism Qualified Code(s): J18.9 - Pneumonia, unspecified organism Code(s): J18.9 - Pneumonia, unspecified organism Status: Acute Assessment and Plan: CTA on presentation demonstrates right lower lobe pneumonia with questionable additional involvement of the left lung base, not seen on previous imaging from last hospitalization given timing of symptoms, there is concern for secondary bacterial pneumonia. continue ceftriaxone and azithromycin supportive care as above (4) Generalized weakness: Code(s): R53.1 - Weakness Status: Acute Assessment and Plan: suspect acute on chronic, likely worsened due to acute COVID-19 infection patient no longer able to be cared for at home by his will likely require SNF placement following discharge fall precautions in place appreciate PT/OT eval (5) Paroxysmal atrial fibrillation: Code(s): I48.0 - Paroxysmal atrial fibrillation Status: Chronic Assessment and Plan: rate is controlled at this time continue home Pradaxa (6) History of stroke: Code(s): Z86.73 - Personal history of transient ischemic attack (TIA), and cerebral infarction without residual deficits Status: Chronic Assessment and Plan: with associated residual aphasia and right-sided weakness continue home Pradaxa, simvastatin, and aspirin Subjective Date/time seen: 09/18/22 16:10 Interval history: date of service: 09/18/2022 Eric Barry is a 81-year-old male with a history of CAD, BPH, diastolic CHF, CVA with subsequent aphasia, paroxysmal atrial fibrillation s/p Watchman procedure maintained on Pradaxa, and pulmonary asbestosis who is seen in follow-up for COVID-19. Patient has expressive aphasia due to history of stroke, this obtaining history is difficult. He does appear more alert today. He is sitting up in the chair. He is able to answer some questions by nodding yes or no. He denies shortness of breath. States he is not having any pain. States he ate breakfast today. He does cough a couple of times during my encounter. denies weakness and feels that he is getting stronger. He is able to tell me his name and I believe he attempted to state [facility] when asked where we are, though was not able to make this out clearly Review of Systems Review of Systems: ROS unobtainable: Yes unobtainable due to mental status Exam Narrative: General: Thin, chronically ill-appearing 81-year-old male, sitting up in a chair , comfortable, NARD Neuro: awake, alert and oriented x1-2, speech is garbled HEENMT:
[2022-09-18] MEDS: SIMVASTATIN 20 MG TABLET PO (20:45)
[2022-09-19] VITALS (13 sets, daily range): BP systolic 140–176; BP diastolic 82–92; PULSE 64–79; RESP 17–20; TEMP 36–36.8; O2SAT 95–100
[2022-09-19 05:08] LABS: Hematocrit 34.9 % (42.0-52.0); Hemoglobin 11.4 g/dL (14.0-18.0); Mean Corpuscular HGB Conc 32.7 g/dl (32-36); Mean Corpuscular Hemoglobin 31.1 pg (26-34); Mean Corpuscular Volume 95.1 fl (80-100); Mean Platelet Volume 9.3 fl (7.4-10.4); Platelet Count Result 278 k/mm3 (150-375); Red Blood Count 3.67 M/mm3 (4.6-6.20); Red Cell Distribution Width 13.7 % (11.5-14.5); White Blood Count 10.8 K/mm3 (4.5-10.0)
[2022-09-19 05:15] LABS: Anion Gap -1 mmol/L (8-16); Blood Urea Nitrogen 15 mg/dL (9-20); Calcium 7.7 mg/dL (8.4-10.2); Carbon Dioxide 30 mmol/L (22-30); Chloride 99 mmol/L (98-107); Estimated CRCL calculation 66 ml/min; Estimated Glomerular Filt Rate > 60; Glucose 89 mg/dL (65-110); Sodium 128 mmol/L (137-145)
[2022-09-19] MEDS: SODIUM CHLORIDE 0.9% IV 1,000 ML 100 ML IV CONT (05:58)
--- NOTE | 2022-09-19 08:18 | PM.IMPN ---
Progress Note: A&P Assessment and Plan (1) Acute respiratory failure with hypoxia: Code(s): J96.01 - Acute respiratory failure with hypoxia Status: Acute Assessment and Plan: Patient presented with hypoxia in mid upper 80s. Chest CTA was negative for PE but did reveal pneumonia which is the likely etiology. On admission requiring 2 L supplemental O2 with spO2 O2 in upper 90s. Wean oxygen as tolerated with goal sats 92% or above. will require home O2 eval prior to discharge if unable to wean or patient is able to discharge home. (2) COVID-19: Code(s): U07.1 - COVID-19 Status: Acute Assessment and Plan: Patient with initial COVID positive PCR on 09/09/2022 during which time he was started on dexamethasone and had received a total of 6 days at time of return to ED on 09/16 Given ongoing oxygen demand, dexamethasone continued on admission. Stop dexamethasone as this appears more secondary to bacterial pneumonia. Hold on remdesivir at this time Continue supportive care to include incentive spirometry, Cornet, bronchodilators, expectorants. Discontinued isolation precautions after day 10 infection. Patient has reportedly been vaccinated for COVID-19, however records unavailable for review in EMR Continue antibiotics for secondary bacterial pneumonia. CRP 5 on 09/19, down from 18 on 09/12 (3) Pneumonia: Qualifiers: Laterality: right Lung location: lower lobe of lung Pneumonia type: due to unspecified organism Qualified Code(s): J18.9 - Pneumonia, unspecified organism Code(s): J18.9 - Pneumonia, unspecified organism Status: Acute Assessment and Plan: CTA on presentation demonstrates right lower lobe pneumonia with questionable additional involvement of the left lung base, not seen on previous imaging from last hospitalization given timing of symptoms, there is concern for secondary bacterial pneumonia. continue ceftriaxone and azithromycin, started 09/16/22. Transition to oral in am if continues to improve. supportive care as above (4) Generalized weakness: Code(s): R53.1 - Weakness Status: Acute Assessment and Plan: suspect acute on chronic, likely worsened due to acute COVID-19 infection patient no longer able to be cared for at home by his awaiting SNF placement following discharge fall precautions in place appreciate PT/OT eval (5) Paroxysmal atrial fibrillation: Code(s): I48.0 - Paroxysmal atrial fibrillation Status: Chronic Assessment and Plan: rate is controlled at this time continue home Pradaxa (6) History of stroke: Code(s): Z86.73 - Personal history of transient ischemic attack (TIA), and cerebral infarction without residual deficits Status: Chronic Assessment and Plan: with associated residual aphasia and right-sided weakness continue home Pradaxa, simvastatin, and aspirin (7) Diastolic heart failure: Qualifiers: Heart failure chronicity: acute on chronic Qualified Code(s): I50.33 - Acute on chronic diastolic (congestive) heart failure Code(s): I50.30 - Unspecified diastolic (congestive) heart failure Status: Chronic Assessment and Plan: Acute on chronic, mild exacerbation. Echocardiogram shows grade 3 diastolic dysfunction. 09/19 Chest x-ray shows questionable pulmonary edema. BNP increased 600 to 1700 and patient still requiring 2L O2 NC. Stop IV fluids. Will given lasix 40 mg IV x1 and KCl 40 mEQ PO x1. Monitor I/O Plan CODE STATUS: DNR Disposition: SNF rehab. Time Spent With Patient Time with patient: 25 - 35 minutes Subjective Date/time seen: 09/19/22 08:18 Interval history: Patient is a 81-year-old male with a history of CAD, BPH, diastolic CHF, CVA with subsequent aphasia, paroxysmal atrial fibrillation s/p Watchman procedure on Pradaxa, and pulmonary asbestosis who was diagnosed with COVID
[2022-09-19] MEDS: DABIGATRAN ETEXILATE 75 MG CAPSULE PO ×2 (08:19→17:13)
[2022-09-19] MEDS: ASPIRIN 81 MG ENTERIC TABLET PO (08:19)
[2022-09-19] MEDS: FINASTERIDE 5 MG TABLET PO (08:20)
[2022-09-19] MEDS: ESCITALOPRAM OXALATE 5 MG TABLET PO (08:20)
[2022-09-19] MEDS: guaiFENesin 12 HR 600 MG TABCR PO ×2 (08:20→20:58)
[2022-09-19] MEDS: POTASSIUM CITRATE 5 MEQ TAB CR 15 MEQ PO (08:21)
[2022-09-19 08:45] LABS: CRP 5.1 mg/dL (<1.0)
--- NOTE | 2022-09-19 08:51 | PCOTNOTE ---
Attempted to see patient this am, however patient refused. Pt stated, Not now. Pt reported, I've been doing everything this morning.
[2022-09-19 08:52] LABS: NT Pro B Type Natriuretic Pept 1790 pg/mL (19.9-100)
[2022-09-19] MEDS: ALBUTEROL SULFATE NEB 2.5 MG/3 ML INH INHALATION ×3 (09:01→21:18)
[2022-09-19] MEDS: IPRATROPIUM BR 0.02% INH SOLN 0.5 MG/2.5 ML VIAL INHALATION ×3 (09:01→21:18)
[2022-09-19 11:53] LABS: Creatinine Urine 18.9 mg/dL
[2022-09-19 11:54] LABS: Sodium Urine Random 138 meq/L
[2022-09-19 12:55] LABS: Procalcitonin 0.1 ng/mL
[2022-09-19] MEDS: POTASSIUM CHLORIDE 20 MEQ PACKET (FOR LIQUID) 40 MEQ PO (14:02)
[2022-09-19] MEDS: FUROSEMIDE INJ 40 MG/4 ML VIAL IV PUSH (14:02)
[2022-09-19] MEDS: SIMVASTATIN 20 MG TABLET PO (20:58)
[2022-09-20] VITALS (12 sets, daily range): BP systolic 130–149; BP diastolic 73–81; PULSE 70–82; RESP 18–20; TEMP 36.4–36.9; O2SAT 94–99
[2022-09-20] MEDS: IPRATROPIUM BR 0.02% INH SOLN 0.5 MG/2.5 ML VIAL INHALATION ×4 (02:49→21:21)
[2022-09-20] MEDS: ALBUTEROL SULFATE NEB 2.5 MG/3 ML INH INHALATION ×4 (02:49→21:21)
[2022-09-20 05:24] LABS: Basophils Percent Auto 0.2 % (0.2-1.2); Eosinophils Percent Auto 0.2 % (0-4.4); Hematocrit 37.7 % (42.0-52.0); Hemoglobin 12.5 g/dL (14.0-18.0); Immature Granulocyte Absolute 0.15 K/mm3 (0.00-0.031); Immature Granulocyte Percent A 1.1 % (0-0.5); Lymphocytes Absolute Auto 2.11 K/mm3 (0.9-3.2); Lymphocytes Percent Auto 15.7 % (18.3-44.2); Mean Corpuscular HGB Conc 33.2 g/dl (32-36); Mean Corpuscular Hemoglobin 30.3 pg (26-34); Mean Corpuscular Volume 91.5 fl (80-100); Mean Platelet Volume 8.9 fl (7.4-10.4); Monocytes Absolute Auto 1.2 K/mm3 (0.1-0.6); Neutrophils Absolute Auto 9.9 K/mm3 (1.3-6.7); Neutrophils Percent Auto 73.8 % (45.5-73.1); Platelet Count Result 318 k/mm3 (150-375); Red Blood Count 4.12 M/mm3 (4.6-6.20); Red Cell Distribution Width 13.5 % (11.5-14.5); White Blood Count 13.5 K/mm3 (4.5-10.0)
[2022-09-20 05:37] LABS: Alanine Aminotransferase 81 U/L (6-50); Albumin Level 3.1 g/dL (3.5-5.1); Alkaline Phosphatase 77 U/L (38-126); Anion Gap 1 mmol/L (8-16); Aspartate Amino Transferase 45 U/L (17-59); Bilirubin,Total 0.6 mg/dL (0.2-1.3); Blood Urea Nitrogen 20 mg/dL (9-20); Carbon Dioxide 31 mmol/L (22-30); Chloride 97 mmol/L (98-107); Estimated CRCL calculation 58 ml/min; Estimated Glomerular Filt Rate > 60; Glucose 85 mg/dL (65-110); Potassium 4.3 mmol/L (3.4-5.0); Sodium 129 mmol/L (137-145)
[2022-09-20] MEDS: ASPIRIN 81 MG ENTERIC TABLET PO (08:57)
[2022-09-20] MEDS: ESCITALOPRAM OXALATE 5 MG TABLET PO (08:58)
[2022-09-20] MEDS: FINASTERIDE 5 MG TABLET PO (08:58)
[2022-09-20] MEDS: DABIGATRAN ETEXILATE 75 MG CAPSULE PO ×2 (08:58→17:11)
[2022-09-20] MEDS: guaiFENesin 12 HR 600 MG TABCR PO ×2 (08:58→20:35)
--- NOTE | 2022-09-20 15:05 | P.PNIM_ITS ---
Progress Note: A&P Assessment and Plan (1) Acute respiratory failure with hypoxia: Code(s): J96.01 - Acute respiratory failure with hypoxia Status: Acute Assessment and Plan: Patient presented with hypoxia in mid upper 80s. Chest CTA was negative for PE but did reveal pneumonia which is the likely etiology. * On admission requiring 2 L supplemental O2 with spO2 O2 in upper 90s. * Weaned to room air with adequate saturations. * Monitor respiratory status. (2) COVID-19: Code(s): U07.1 - COVID-19 Status: Acute Assessment and Plan: Patient with initial COVID positive PCR on 09/09/2022 during which time he was started on dexamethasone and had received a total of 6 days at time of return to ED on 09/16 * Given ongoing oxygen demand, dexamethasone continued on admission. Stop dexamethasone as this appears more secondary to bacterial pneumonia. * Hold on remdesivir at this time * Continue supportive care to include incentive spirometry, Cornet, bronchodilators, expectorants. * Discontinued isolation precautions after day 10 infection. * Patient has reportedly been vaccinated for COVID-19, however records unavailable for review in EMR * Continue antibiotics for secondary bacterial pneumonia. * CRP 5 on 09/19, down from 18 on 09/12 (3) Pneumonia: Qualifiers: Laterality: right Lung location: lower lobe of lung Pneumonia type: due to unspecified organism Qualified Code(s): J18.9 - Pneumonia, unspecified organism Code(s): J18.9 - Pneumonia, unspecified organism Status: Acute Assessment and Plan: CTA on presentation demonstrates right lower lobe pneumonia with questionable additional involvement of the left lung base, not seen on previous imaging from last hospitalization * given timing of symptoms, there is concern for secondary bacterial pneumonia. * Treated with ceftriaxone and azithromycin, started 09/16/22. * Transition to oral cefdinir 300 mg PO BID x 4 days, for total 7-day course. WBC 13.5, however, patient is afebrile and respiratory status improving. * Repeat CBC tomorrow. * supportive care as above (4) Generalized weakness: Code(s): R53.1 - Weakness Status: Acute Assessment and Plan: suspect acute on chronic, likely worsened due to acute COVID-19 infection * patient no longer able to be cared for at home by his * awaiting SNF placement following discharge * fall precautions in place * appreciate PT/OT eval (5) Paroxysmal atrial fibrillation: Code(s): I48.0 - Paroxysmal atrial fibrillation Status: Chronic Assessment and Plan: rate is controlled at this time * continue home Pradaxa (6) History of stroke: Code(s): Z86.73 - Personal history of transient ischemic attack (TIA), and cerebral infarction without residual deficits Status: Chronic Assessment and Plan: with associated residual aphasia and right-sided weakness * continue home Pradaxa, simvastatin, and aspirin (7) Diastolic heart failure: Qualifiers: Heart failure chronicity: acute on chronic Qualified Code(s): I50.33 - Acute on chronic diastolic (congestive) heart failure Code(s): I50.30 - Unspecified diastolic (congestive) heart failure Status: Chronic Assessment and Plan: Acute on chronic, mild exacerbation. Echocardiogram shows grade 3 diastolic dysfunction. 09/19 Chest x-ray shows questionable pulmonary edema. BNP increased 600 to 1700 and patient still requiring 2L O2 NC. Stop IV fluids. Given lasix 40 mg IV x1 and KCl 40 mEQ
--- NOTE | 2022-09-20 15:05 | PM.IMPN ---
Progress Note: A&P Assessment and Plan (1) Acute respiratory failure with hypoxia: Code(s): J96.01 - Acute respiratory failure with hypoxia Status: Acute Assessment and Plan: Patient presented with hypoxia in mid upper 80s. Chest CTA was negative for PE but did reveal pneumonia which is the likely etiology. On admission requiring 2 L supplemental O2 with spO2 O2 in upper 90s. Weaned to room air with adequate saturations. Monitor respiratory status. (2) COVID-19: Code(s): U07.1 - COVID-19 Status: Acute Assessment and Plan: Patient with initial COVID positive PCR on 09/09/2022 during which time he was started on dexamethasone and had received a total of 6 days at time of return to ED on 09/16 Given ongoing oxygen demand, dexamethasone continued on admission. Stop dexamethasone as this appears more secondary to bacterial pneumonia. Hold on remdesivir at this time Continue supportive care to include incentive spirometry, Cornet, bronchodilators, expectorants. Discontinued isolation precautions after day 10 infection. Patient has reportedly been vaccinated for COVID-19, however records unavailable for review in EMR Continue antibiotics for secondary bacterial pneumonia. CRP 5 on 09/19, down from 18 on 09/12 (3) Pneumonia: Qualifiers: Laterality: right Lung location: lower lobe of lung Pneumonia type: due to unspecified organism Qualified Code(s): J18.9 - Pneumonia, unspecified organism Code(s): J18.9 - Pneumonia, unspecified organism Status: Acute Assessment and Plan: CTA on presentation demonstrates right lower lobe pneumonia with questionable additional involvement of the left lung base, not seen on previous imaging from last hospitalization given timing of symptoms, there is concern for secondary bacterial pneumonia. Treated with ceftriaxone and azithromycin, started 09/16/22. Transition to oral cefdinir 300 mg PO BID x 4 days, for total 7-day course. WBC 13.5, however, patient is afebrile and respiratory status improving. Repeat CBC tomorrow. supportive care as above (4) Generalized weakness: Code(s): R53.1 - Weakness Status: Acute Assessment and Plan: suspect acute on chronic, likely worsened due to acute COVID-19 infection patient no longer able to be cared for at home by his awaiting SNF placement following discharge fall precautions in place appreciate PT/OT eval (5) Paroxysmal atrial fibrillation: Code(s): I48.0 - Paroxysmal atrial fibrillation Status: Chronic Assessment and Plan: rate is controlled at this time continue home Pradaxa (6) History of stroke: Code(s): Z86.73 - Personal history of transient ischemic attack (TIA), and cerebral infarction without residual deficits Status: Chronic Assessment and Plan: with associated residual aphasia and right-sided weakness continue home Pradaxa, simvastatin, and aspirin (7) Diastolic heart failure: Qualifiers: Heart failure chronicity: acute on chronic Qualified Code(s): I50.33 - Acute on chronic diastolic (congestive) heart failure Code(s): I50.30 - Unspecified diastolic (congestive) heart failure Status: Chronic Assessment and Plan: Acute on chronic, mild exacerbation. Echocardiogram shows grade 3 diastolic dysfunction. 09/19 Chest x-ray shows questionable pulmonary edema. BNP increased 600 to 1700 and patient still requiring 2L O2 NC. Stop IV fluids. Given lasix 40 mg IV x1 and KCl 40 mEQ PO x1. Monitor I/O - Unable to quantitatively compare intake versus output. Lung sound appear improved. No overt s/s hypervolemia. Plan CODE STATUS: DNR Disposition: SNF rehab. Patient is improving and likely can be discharged whenever rehab placement is arranged. Time Spent With Patient Time with patient: 15 - 25 minutes Subjective Date/time seen: 09/20/22 15:05
[2022-09-20] MEDS: CEFDINIR 300 MG CAPSULE PO (20:34)
[2022-09-20] MEDS: SIMVASTATIN 20 MG TABLET PO (20:35)
[2022-09-21] VITALS (13 sets, daily range): BP systolic 125–141; BP diastolic 75–90; PULSE 66–82; RESP 16–21; TEMP 36.1–36.8; O2SAT 92–100
[2022-09-21] MEDS: IPRATROPIUM BR 0.02% INH SOLN 0.5 MG/2.5 ML VIAL INHALATION ×4 (03:16→20:36)
[2022-09-21] MEDS: ALBUTEROL SULFATE NEB 2.5 MG/3 ML INH INHALATION ×4 (03:16→20:36)
[2022-09-21 05:36] LABS: Anion Gap 6 mmol/L (8-16); Blood Urea Nitrogen 21 mg/dL (9-20); Calcium 8.4 mg/dL (8.4-10.2); Carbon Dioxide 27 mmol/L (22-30); Chloride 101 mmol/L (98-107); Estimated CRCL calculation 52 ml/min; Estimated Glomerular Filt Rate > 60; Glucose 124 mg/dL (65-110); Magnesium 2.3 mg/dL (1.6-2.3); Potassium 4.3 mmol/L (3.4-5.0); Sodium 134 mmol/L (137-145)
[2022-09-21 05:40] LABS: CRP 1.9 mg/dL (<1.0)
[2022-09-21 05:57] LABS: Procalcitonin 0.1 ng/mL
[2022-09-21 05:59] LABS: Hematocrit 42.6 % (42.0-52.0); Hemoglobin 13.9 g/dL (14.0-18.0); Mean Corpuscular HGB Conc 32.6 g/dl (32-36); Mean Corpuscular Hemoglobin 30.8 pg (26-34); Mean Corpuscular Volume 94.5 fl (80-100); Mean Platelet Volume 9.4 fl (7.4-10.4); Platelet Count Result 404 k/mm3 (150-375); Red Blood Count 4.51 M/mm3 (4.6-6.20); Red Cell Distribution Width 13.9 % (11.5-14.5); White Blood Count 20.5 K/mm3 (4.5-10.0)
[2022-09-21] MEDS: guaiFENesin 12 HR 600 MG TABCR PO ×2 (08:56→22:06)
[2022-09-21] MEDS: POTASSIUM CITRATE 5 MEQ TAB CR 15 MEQ PO (08:56)
[2022-09-21] MEDS: DABIGATRAN ETEXILATE 75 MG CAPSULE PO ×2 (08:56→17:04)
[2022-09-21] MEDS: ESCITALOPRAM OXALATE 5 MG TABLET PO (08:56)
[2022-09-21] MEDS: CEFDINIR 300 MG CAPSULE PO ×2 (08:56→22:06)
[2022-09-21] MEDS: ASPIRIN 81 MG ENTERIC TABLET PO (08:56)
[2022-09-21] MEDS: FINASTERIDE 5 MG TABLET PO (08:56)
--- NOTE | 2022-09-21 10:59 | PCNFU ---
Nutrition Follow-Up Complete: Severe malnutrition related to chronic and acute illness as evidenced by poor intake, weight loss 7%/1 month and 23%/8 months. Goal; Improve PO intake to at least 50% meals and supplements Patient is progressing towards goal. We will continue current goal. Pt current nutrition is Regular with ensure compact BID. Last recorded weight is 63.1 kg. Bowel Motility: +Bm reported 09/19 Labs Reviewed:glu 124, BUN 21, Na 134, Hgb 13.9 Meds Noted:Lexapro, Mucinex. Skin: WNL Additional Notes: Nutrition follow up. Patient is tolerating a regular diet. Ensure Compact providing an additional 220 kcals and 9 gms protein. Agree with diet orders. Monitoring intakes, weights, labs, supplement tolerance, plan of care Follow up in 7 days
--- NOTE | 2022-09-21 14:31 | P.PNIM_ITS ---
Progress Note: A&P Assessment and Plan (1) Acute respiratory failure with hypoxia: Code(s): J96.01 - Acute respiratory failure with hypoxia Status: Acute Assessment and Plan: Patient presented with hypoxia in mid upper 80s. Chest CTA was negative for PE but did reveal pneumonia which is the likely etiology. * On admission requiring 2 L supplemental O2 with spO2 O2 in upper 90s. * Weaned to room air with adequate saturations. * Monitor respiratory status. (2) COVID-19: Code(s): U07.1 - COVID-19 Status: Acute Assessment and Plan: Patient with initial COVID positive PCR on 09/09/2022 during which time he was started on dexamethasone and had received a total of 6 days at time of return to ED on 09/16 * Given ongoing oxygen demand, dexamethasone continued on admission. Stop dexamethasone as this appears more secondary to bacterial pneumonia. * Hold on remdesivir at this time * Continue supportive care to include incentive spirometry, Cornet, bronchodilators, expectorants. * Discontinued isolation precautions after day 10 infection. * Patient has reportedly been vaccinated for COVID-19, however records unavailable for review in EMR * Continue antibiotics for secondary bacterial pneumonia. * CRP 5 on 09/19, down from 18 on 09/12 (3) Pneumonia: Qualifiers: Laterality: right Lung location: lower lobe of lung Pneumonia type: due to unspecified organism Qualified Code(s): J18.9 - Pneumonia, unspecified organism Code(s): J18.9 - Pneumonia, unspecified organism Status: Acute Assessment and Plan: CTA on presentation demonstrates right lower lobe pneumonia with questionable additional involvement of the left lung base, not seen on previous imaging from last hospitalization * given timing of symptoms, there is concern for secondary bacterial pneumonia. * Treated with ceftriaxone and azithromycin, started 09/16/22. * Transition to oral cefdinir 300 mg PO BID x 4 days, for total 7-day course. WBC 13.5, however, patient is afebrile and respiratory status improving. * WBC 20, CRP 1.9, procal 0.1. Afebrile. Repeat chest x-ray. (4) Generalized weakness: Code(s): R53.1 - Weakness Status: Acute Assessment and Plan: suspect acute on chronic, likely worsened due to acute COVID-19 infection * patient no longer able to be cared for at home by his * awaiting SNF placement following discharge * fall precautions in place * appreciate PT/OT eval (5) Paroxysmal atrial fibrillation: Code(s): I48.0 - Paroxysmal atrial fibrillation Status: Chronic Assessment and Plan: rate is controlled at this time * continue home Pradaxa (6) History of stroke: Code(s): Z86.73 - Personal history of transient ischemic attack (TIA), and cerebral infarction without residual deficits Status: Chronic Assessment and Plan: with associated residual aphasia and right-sided weakness * continue home Pradaxa, simvastatin, and aspirin (7) Diastolic heart failure: Qualifiers: Heart failure chronicity: acute on chronic Qualified Code(s): I50.33 - Acute on chronic diastolic (congestive) heart failure Code(s): I50.30 - Unspecified diastolic (congestive) heart failure Status: Chronic Assessment and Plan: Acute on chronic, mild exacerbation. * Echocardiogram shows grade 3 diastolic dysfunction. * 09/19 Chest x-ray shows questionable pulmonary edema. * BNP increased 600 to 1700 and patient still requiring 2L O2 NC. * Stop IV fluids. Given lasix 40 mg IV x1
--- NOTE | 2022-09-21 14:31 | PM.IMPN ---
Progress Note: A&P Assessment and Plan (1) Acute respiratory failure with hypoxia: Code(s): J96.01 - Acute respiratory failure with hypoxia Status: Acute Assessment and Plan: Patient presented with hypoxia in mid upper 80s. Chest CTA was negative for PE but did reveal pneumonia which is the likely etiology. On admission requiring 2 L supplemental O2 with spO2 O2 in upper 90s. Weaned to room air with adequate saturations. Monitor respiratory status. (2) COVID-19: Code(s): U07.1 - COVID-19 Status: Acute Assessment and Plan: Patient with initial COVID positive PCR on 09/09/2022 during which time he was started on dexamethasone and had received a total of 6 days at time of return to ED on 09/16 Given ongoing oxygen demand, dexamethasone continued on admission. Stop dexamethasone as this appears more secondary to bacterial pneumonia. Hold on remdesivir at this time Continue supportive care to include incentive spirometry, Cornet, bronchodilators, expectorants. Discontinued isolation precautions after day 10 infection. Patient has reportedly been vaccinated for COVID-19, however records unavailable for review in EMR Continue antibiotics for secondary bacterial pneumonia. CRP 5 on 09/19, down from 18 on 09/12 (3) Pneumonia: Qualifiers: Laterality: right Lung location: lower lobe of lung Pneumonia type: due to unspecified organism Qualified Code(s): J18.9 - Pneumonia, unspecified organism Code(s): J18.9 - Pneumonia, unspecified organism Status: Acute Assessment and Plan: CTA on presentation demonstrates right lower lobe pneumonia with questionable additional involvement of the left lung base, not seen on previous imaging from last hospitalization given timing of symptoms, there is concern for secondary bacterial pneumonia. Treated with ceftriaxone and azithromycin, started 09/16/22. Transition to oral cefdinir 300 mg PO BID x 4 days, for total 7-day course. WBC 13.5, however, patient is afebrile and respiratory status improving. WBC 20, CRP 1.9, procal 0.1. Afebrile. Repeat chest x-ray. (4) Generalized weakness: Code(s): R53.1 - Weakness Status: Acute Assessment and Plan: suspect acute on chronic, likely worsened due to acute COVID-19 infection patient no longer able to be cared for at home by his awaiting SNF placement following discharge fall precautions in place appreciate PT/OT eval (5) Paroxysmal atrial fibrillation: Code(s): I48.0 - Paroxysmal atrial fibrillation Status: Chronic Assessment and Plan: rate is controlled at this time continue home Pradaxa (6) History of stroke: Code(s): Z86.73 - Personal history of transient ischemic attack (TIA), and cerebral infarction without residual deficits Status: Chronic Assessment and Plan: with associated residual aphasia and right-sided weakness continue home Pradaxa, simvastatin, and aspirin (7) Diastolic heart failure: Qualifiers: Heart failure chronicity: acute on chronic Qualified Code(s): I50.33 - Acute on chronic diastolic (congestive) heart failure Code(s): I50.30 - Unspecified diastolic (congestive) heart failure Status: Chronic Assessment and Plan: Acute on chronic, mild exacerbation. Echocardiogram shows grade 3 diastolic dysfunction. 09/19 Chest x-ray shows questionable pulmonary edema. BNP increased 600 to 1700 and patient still requiring 2L O2 NC. Stop IV fluids. Given lasix 40 mg IV x1 and KCl 40 mEQ PO x1. Monitor I/O - Unable to quantitatively compare intake versus output. Lung sound appear improved. No overt s/s hypervolemia. (8) Leukocytosis: Code(s): D72.829 - Elevated white blood cell count, unspecified Status: Acute Assessment and Plan: WBC 20 (was 13), CRP 1.9, procal 0.1. Afebrile. Repeat chest x-ray. Check UA No abd kristian
[2022-09-21 21:45] LABS: Osmolality, Urine 369 mOsm/kg (50-1200)
[2022-09-21] MEDS: SENNA/DOCUSATE SODIUM TABLET 1 TAB PO (22:06)
[2022-09-21] MEDS: SIMVASTATIN 20 MG TABLET PO (22:06)
[2022-09-22] MEDS: IPRATROPIUM BR 0.02% INH SOLN 0.5 MG/2.5 ML VIAL INHALATION ×2 (02:08→07:33)
[2022-09-22] MEDS: ALBUTEROL SULFATE NEB 2.5 MG/3 ML INH INHALATION ×2 (02:08→07:33)
[2022-09-22 02:10] VITALS: PULSE 81; RESP 18
[2022-09-22 02:21] VITALS: PULSE 78; RESP 20
[2022-09-22 03:56] LABS: Appearance Urine Clear (Clear); Bilirubin Urine Negative (Negative); Blood Urine Trace-intact (Negative); Color Urine Yellow (Yellow); Glucose Urine UA Negative (Negative); Ketones Urine Negative (Negative); Leukocyte Esterase Ur Negative LEU/UL (Negative); Nitrate Urine Negative (Negative); Protein Urine 1+ mg/dL (Negative); Urobilinogen Urine 0.2 mg/dL (<2.0)
[2022-09-22 04:12] LABS: RBC Urine 0-2 /hpf (0-2); Squamous Epithelial Cell Urine Rare /hpf (Few); WBC Urine 0-3 /hpf
[2022-09-22 04:31] LABS: Add Urine Microscopic? YES
[2022-09-22 05:54] LABS: Basophils Percent Auto 0.1 % (0.2-1.2); Eosinophils Absolute Auto 0.1 K/mm3 (0-0.3); Eosinophils Percent Auto 0.8 % (0-4.4); Hematocrit 38.5 % (42.0-52.0); Hemoglobin 12.4 g/dL (14.0-18.0); Immature Granulocyte Absolute 0.12 K/mm3 (0.00-0.031); Immature Granulocyte Percent A 0.8 % (0-0.5); Lymphocytes Absolute Auto 2.14 K/mm3 (0.9-3.2); Lymphocytes Percent Auto 13.8 % (18.3-44.2); Mean Corpuscular HGB Conc 32.2 g/dl (32-36); Mean Corpuscular Hemoglobin 29.9 pg (26-34); Mean Corpuscular Volume 92.8 fl (80-100); Mean Platelet Volume 8.7 fl (7.4-10.4); Monocytes Percent Auto 6.3 % (2.6-8.5); Neutrophils Absolute Auto 12.1 K/mm3 (1.3-6.7); Neutrophils Percent Auto 78.2 % (45.5-73.1); Platelet Count Result 307 k/mm3 (150-375); Red Blood Count 4.15 M/mm3 (4.6-6.20); Red Cell Distribution Width 13.9 % (11.5-14.5); White Blood Count 15.5 K/mm3 (4.5-10.0)
[2022-09-22 06:00] VITALS: BP 150/69; PULSE 68; RESP 18; TEMP 36.3; O2SAT 95
[2022-09-22 06:16] LABS: Anion Gap 2 mmol/L (8-16); Blood Urea Nitrogen 22 mg/dL (9-20); CRP 2.4 mg/dL (<1.0); Calcium 7.9 mg/dL (8.4-10.2); Carbon Dioxide 31 mmol/L (22-30); Chloride 101 mmol/L (98-107); Estimated CRCL calculation 52 ml/min; Estimated Glomerular Filt Rate > 60; Glucose 100 mg/dL (65-110); Potassium 4.5 mmol/L (3.4-5.0); Sodium 134 mmol/L (137-145)
[2022-09-22 07:35] VITALS: PULSE 74; RESP 20
[2022-09-22 07:37] VITALS: O2SAT 96
--- NOTE | 2022-09-22 08:42 | PM.DS ---
DS: Admitting Diagnosis Discharge Date 09/22/2022 1331 Admitting Diagnosis Pneumonia COVID-19, subsequent encounter Diastolic heart failure, chronic DS: Discharge Diagnosis Discharge Diagnosis (1) Acute respiratory failure with hypoxia: Code(s): J96.01 - Acute respiratory failure with hypoxia Status: Acute (2) Pneumonia: Qualifiers: Laterality: right Lung location: lower lobe of lung Pneumonia type: due to unspecified organism Qualified Code(s): J18.9 - Pneumonia, unspecified organism Code(s): J18.9 - Pneumonia, unspecified organism Status: Acute (3) COVID-19: Code(s): U07.1 - COVID-19 Status: Acute (4) Generalized weakness: Code(s): R53.1 - Weakness Status: Acute (5) Paroxysmal atrial fibrillation: Code(s): I48.0 - Paroxysmal atrial fibrillation Status: Chronic (6) History of stroke: Code(s): Z86.73 - Personal history of transient ischemic attack (TIA), and cerebral infarction without residual deficits Status: Chronic Assessment and Plan: (7) Diastolic heart failure: Qualifiers: Heart failure chronicity: acute on chronic Qualified Code(s): I50.33 - Acute on chronic diastolic (congestive) heart failure Code(s): I50.30 - Unspecified diastolic (congestive) heart failure Status: Chronic (8) Leukocytosis: Qualifiers: Leukocytosis type: bandemia Qualified Code(s): D72.825 - Bandemia Code(s): D72.829 - Elevated white blood cell count, unspecified Status: Acute DS: Summary Hospital Course Reason for hospitalization: Respiratory complaints Hospital Course: Eric Barry is a?81-year-old male with a history of CAD, BPH, diastolic CHF, CVA with subsequent aphasia, paroxysmal atrial fibrillation s/p Watchman procedure on Pradaxa, and pulmonary asbestosis who was diagnosed with COVID-19 on 09/09/22 and briefly hospitalized at our facility. He was discharged home on oral dexamethasone, however, he became progressively weaker and was readmitted for management of bacterial pneumonia and SNF rehab. (1) Acute respiratory failure with hypoxia: ?Code(s): J96.01 - Acute respiratory failure with hypoxia ?Status:?Acute ?Assessment and Plan: Patient presented with hypoxia in mid upper 80s in the ED.? Chest CTA was negative for PE but did reveal pneumonia which is the likely etiology.? On admission requiring 2 L supplemental O2 with spO2 O2 in upper 90s.? Weaned to room air with adequate saturations with antibiotics and diuretic therapy. (2) COVID-19: ?Code(s): U07.1 - COVID-19 ?Status:?Acute ?Assessment and Plan: Patient with initial COVID positive PCR on 09/09/2022 during which time he was started on dexamethasone and had received a total of 6 days at time of return to ED on 09/16 Given ongoing oxygen demand, dexamethasone continued on admission. Stop dexamethasone as acute respiratory failure appeared secondary to bacterial pneumonia. Held on remdesivir as >7 days from diagnosis supportive care given with incentive spirometry, Cornet, bronchodilators, expectorants. Discontinued isolation precautions after day 10 infection. Patient has reportedly been vaccinated for COVID-19,? however records unavailable for review in EMR Treated with antibiotics for secondary bacterial pneumonia. CRP 5 on 09/19, down from 18 on 09/12 suggesting improving infection/inflammation (3) Pneumonia: ?Qualifiers: ?Laterality:?right??Lung location:?lower lobe of lung??Pneumonia type:?due to unspecified organism? Qualified Code(s):?J18.9 - Pneumonia, unspecified organism ?Code(s): J18.9 - Pneumonia, unspecified organism ?Status:?Acute ?Assessment and Plan: ?CTA on presentation demonstrates right lower lobe pneumonia with questionable additional involvement of the left lung base, not seen on previous imaging from last hospitalization ?given timing of sympt
[2022-09-22] MEDS: ASPIRIN 81 MG ENTERIC TABLET PO (09:03)
[2022-09-22] MEDS: CEFDINIR 300 MG CAPSULE PO (09:03)
[2022-09-22] MEDS: FINASTERIDE 5 MG TABLET PO (09:03)
[2022-09-22] MEDS: DABIGATRAN ETEXILATE 75 MG CAPSULE PO (09:03)
[2022-09-22] MEDS: ESCITALOPRAM OXALATE 5 MG TABLET PO (09:03)
[2022-09-22 09:05] VITALS: RESP 20; O2SAT 96
[2022-09-22] MEDS: guaiFENesin 12 HR 600 MG TABCR PO (09:05)
== END 2022-09-22 14:15 | disposition home health service (06) | DRG 193 ==
LOC: ANHED 18:44 → ANH2MED 21:27
PROVIDERS: Emergency Medicine; Nurse Practitioner; Physician Assistant; Admitting Provider Internal Medicine; Emergency Provider Physician Assistant; PCP Internal Medicine; Visit Provider Nurse Practitioner Family
DX: J18.9 Pneumonia, unspecified organism (principal); I50.33 Acute on chronic diastolic (congestive) heart failure; J96.01 Acute respiratory failure with hypoxia; U07.1 COVID-19; I69.351 Hemiplegia and hemiparesis following cerebral infarction affecting right dominant side; Z95.811 Presence of heart assist device; F41.8 Other specified anxiety disorders; I69.320 Aphasia following cerebral infarction; I48.0 Paroxysmal atrial fibrillation; I25.10 Atherosclerotic heart disease of native coronary artery without angina pectoris; I11.0 Hypertensive heart disease with heart failure; N40.0 Benign prostatic hyperplasia without lower urinary tract symptoms; Z95.5 Presence of coronary angioplasty implant and graft; Z85.01 Personal history of malignant neoplasm of esophagus; Z90.49 Acquired absence of other specified parts of digestive tract; Z87.891 Personal history of nicotine dependence; Z66 Do not resuscitate; Z79.01 Long term (current) use of anticoagulants; Z77.090 Contact with and (suspected) exposure to asbestos; Z79.82 Long term (current) use of aspirin; Z23 Encounter for immunization
CPT/HCPCS: 36415; 36600; 71045; 71046; 71275; 80048; 80053; 81001; 82375; 82570; 82805; 83050; 83605; 83615; 83735; 83880; 83935; 84145; 84300; 84484; 85025; 85027; 85610; 85730; 86140; 87040; 90732; 93005; 93306; 94640; 94667; 96361; 96365; 96367; 96375; 96376; 97110; 97161; 97165; 97530; 97535; 99285; A9270; G0378; J0131; J0456; J0696; J1100; J1940; J7030; Q9967

== ENCOUNTER 2023-01-21 09:00 | Outpatient (NON) | payer MEDICARE, SELFPAY | END 2023-01-21 09:01 | disposition home or self-care (01) | LOC: ANHLAB 01-23 15:45 | PROVIDERS: PCP Internal Medicine; Visit Provider Nurse Practitioner | DX: D49.2 Neoplasm of unspecified behavior of bone, soft tissue, and skin (principal) | CPT/HCPCS: 88305 ==

== ENCOUNTER 2023-10-06 16:54 | Emergency (ER) | payer MEDICARE, SELFPAY ==
[2023-10-06] VITALS (8 sets, daily range): BP systolic 143–163; BP diastolic 86–112; PULSE 84–97; RESP 16–25; TEMP 36.5; O2SAT 93–100
--- NOTE | ~2023-10-06 | CT_ITS ---
EXAMINATION: CT brain wo con DATE: 10/06/2023 20:55 INDICATION: Lethargy, hx of cva . TECHNIQUE: Computed tomography (CT) of the head was performed without intravenous contrast. The mA wa s adjusted according to patient size. Iterative reconstruction technique was employed. The dose-lengt h product was 1513.33 mGy-cm. COMPARISON: 06/07/2021. FINDINGS: No acute intracranial hemorrhage or extra-axial fluid collection. No hydrocephalus, mass, or herniation. No acute ischemic infarct. Unremarkable dural venous sinus attenuation. No acute osseous abnormality. Aerated secretions and sclerosis in the right maxillary sinus, the remaining aerated spaces are clear . Moderate atrophy and chronic white matter change. Atherosclerotic intracranial calcification. Bilater al lens replacements. Large areas of bilateral temporoparietal encephalomalacia. Focal old right cere bellar hemisphere infarct. IMPRESSION: No acute intracranial process. Reviewed, dictated and finalized at location K. CTOR OF DIRECT MARKETING
--- NOTE | ~2023-10-06 | XR_ITS ---
EXAMINATION: XR chest 1V portable Exam Date/Time: 10/06/2023 18:55 COPY CENTER OPERATOR HISTORY: weakness Comparison: 09/21/2022. RESULT: Lines, tubes, and devices: Loop recorder. Mediastinal surgical clips. Lungs and pleura: Moderate interstitial change. Moderate diffuse reticular opacities and scattered p atchy groundglass opacity. Rightward rotation. Biapical pleural scarring. Trace pleural gas in the ri ght apex.. Cardiomediastinal silhouette: Stable. Hiatal hernia. Other: No acute osseous or upper abdominal finding. IMPRESSION: Trace apical pneumothorax. Moderate edema and/or atypical infection, overlying chronic interstitial lung disease. Reviewed, dictated and finalized at location K. CENTER OPERATOR IMPRESSION: Trace apical pneumothorax. Moderate edema and/or atypical infection, overlying chronic interstitial lung d isease.
--- NOTE | ~2023-10-06 | XR_ITS ---
Portable chest x-ray Comparison: 10/06/2023 Clinical History: Pneumothorax Findings: Minimal right apical pneumothorax present. There is diffuse, peripherally distributed school cook arina interstitial pulmonary disease. Cardiomediastinal silhouette is stable. Bones and soft tissues a re unremarkable. Impression: Stable minimal right apical pneumothorax. Stable diffuse interstitial pulmonary disease. Reviewed, dictated and finalized at [facility]. MATIC EMBROIDERY MACHINE TENDER Impression: Stable minimal right apical pneumothorax. Stable diffuse interstitial pulmonary disease.
--- NOTE | 2023-10-06 18:48 | ECG_ITS ---
Measurements Intervals [place] Rate: 83 P: 46 OH: 146 QRS: 30 QRSD: 99 T: -3 QT: 369 QTc: 436 Interpretive Statements NORMAL SINUS RHYTHM RIGHT BUNDLE BRANCH BLOCK ABNORMAL ECG ABNORMAL RHYTHM ECG COMPARED TO ECG 09/16/2022 18:37:00 RIGHT BUNDLE BRANCH BLOCK IS NEW Electronically Signed On 10-07-2023 7:22:02 APPRENTICESHIP CONSULTANT by Eloy Sapp M.D.
[2023-10-06 19:39] LABS: Influenza A QL RT-PCR Negative (Negative); Influenza B QL RT-PCR Negative (Negative); RSV RNA, RT-PCR Negative (Negative); SARS-CoV-2 RNA PCR Negative (Negative)
[2023-10-06 20:01] LABS: Basophils Absolute Auto 0.1 K/mm3 (0.0-0.1); Basophils Percent Auto 0.5 % (0.2-1.2); Eosinophils Absolute Auto 0.1 K/mm3 (0-0.3); Eosinophils Percent Auto 0.9 % (0-4.4); Hemoglobin 12.1 g/dL (14.0-18.0); Immature Granulocyte Absolute 0.05 K/mm3 (0.00-0.031); Immature Granulocyte Percent A 0.4 % (0-0.5); Lymphocytes Absolute Auto 1.38 K/mm3 (0.9-3.2); Lymphocytes Percent Auto 10.8 % (18.3-44.2); Mean Corpuscular Volume 96.5 fl (80-100); Mean Platelet Volume 8.5 fl (7.4-10.4); Monocytes Absolute Auto 0.7 K/mm3 (0.1-0.6); Monocytes Percent Auto 5.7 % (2.6-8.5); Neutrophils Absolute Auto 10.4 K/mm3 (1.3-6.7); Neutrophils Percent Auto 81.7 % (45.5-73.1); Platelet Count Result 275 k/mm3 (150-375); Red Blood Count 4.04 M/mm3 (4.6-6.20); Red Cell Distribution Width 14.1 % (11.5-14.5); White Blood Count 12.8 K/mm3 (4.5-10.0)
[2023-10-06 20:06] LABS: Bacteria Urine None Seen /hpf; Non Pathogenic Casts 0-2; RBC Urine >100 /hpf (0-2); Squamous Epithelial Cell Urine None seen /hpf (Few)
[2023-10-06] MEDS: SODIUM CHLORIDE 0.9% IV 2,000 ML 999 ML IV CONT (20:13)
--- NOTE | 2023-10-06 20:14 | ED.GENADULT ---
HPI - General Adult General Chief complaint: Weakness Stated complaint: increased weakness Time Seen by Provider: 10/06/23 19:15 History of Present Illness HPI narrative: This is an 82-year-old male with history of CVA with dysphagia and right-sided weakness presenting for increased lethargy. His who is his primary cyanide pot hardener noticed that he has been sleeping more than usual last days. Other than that he is chest had some nasal congestion and slight cough. He has no fevers chills nausea vomiting diarrhea headache chest pain difficulty breathing or abdominal pain. Patient has dysphagia from stroke and is essentially nonverbal. Related Data Home Medications Medication Instructions Recorded Confirmed aspirin 81 mg tablet,delayed 81 mg PO DAILY 02/08/20 02/28/23 release (Adult Aspirin Regimen) dabigatran etexilate 75 mg capsule 75 mg PO BID 02/08/20 02/28/23 (Pradaxa) escitalopram oxalate [Lexapro] 5 mg PO DAILY 02/08/20 02/28/23 finasteride 5 mg PO DAILY 02/08/20 02/28/23 simvastatin 20 mg tablet 20 mg PO HS 09/09/22 02/28/23 inulin 2 gram chewable tablet g PO 02/28/23 02/28/23 (Fiber Gummies) multivitamin 1 tablet PO DAILY 02/28/23 02/28/23 Allergies Allergy/AdvReac Type Severity Reaction Status Date / Time No Known Allergies Allergy Verified 02/28/23 12:07 [facility] Past Medical History Medical History Actinic keratosis Allergic rhinitis Anxiety With depression Arthritis BPH (benign prostatic hyperplasia) CAD (coronary artery disease) History of CAD and stent in 2014, per patient's Diastolic heart failure Hip fracture due to osteoporosis History of CVA in adulthood Expressive aphasia and right-sided weakness. 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 The patient quit smoking many years ago. He has 3 biological children and 2 step children and he adopted a grand child. He is retired from [employer] still. He denies any alcohol marijuana illicit drugs. One biological child is and 1 stepchild is . Code status DNR Smoking packs per day: 1 Smoking cigarettes per day: 20.0 Years smoked: 25 Smoking pack-years: 25.00 Smoking status: Former smoker Tobacco type: cigarettes Alcohol intake: never Substance use: never Substance use type: does not use Lack of Transportation: No Lack of Food: Never True Current Housing: I Have Housing Concerned About Future Housing: No Difficulty Paying Gas/Electric Bills: No Difficulty Paying for Meds: No Currently Unemployed: No Education: High School Diploma/GED Difficulty w/ Childcare or Family Care: No Spiritual care concerns: No Exam Narrative: APPEARANCE: No apparent distress. A&O x1 Head: atraumatic. EYES: EOMI, NOSE: Atraumatic NECK: Trachea midline RESPIRATORY: No increased rate of breathing, CTAB CARDIOVASCULAR: RRR, no peripheral edema ABDOMINAL: Non-distended soft nontender no suprapubic pain MUSCULOSKELETAl: No obvious deformities NEURO: Alert. Right-sided weakness and dysphagia SKIN:: Warm, dry. Normal color PSYCHIATRIC: Normal affect Course Vi
[2023-10-06 20:16] LABS: Alanine Aminotransferase 14 U/L (6-50); Albumin Level 3.6 g/dL (3.5-5.1); Alkaline Phosphatase 106 U/L (38-126); Anion Gap 4 mmol/L (8-16); Aspartate Amino Transferase 26 U/L (17-59); Bilirubin,Total 0.7 mg/dL (0.2-1.3); Blood Urea Nitrogen 15 mg/dL (9-20); Calcium 9.1 mg/dL (8.4-10.2); Carbon Dioxide 34 mmol/L (22-30); Chloride 103 mmol/L (98-107); Estimated Glomerular Filt Rate > 60; Glucose 115 mg/dL (65-110); Lipase 50 U/L (23-300); Magnesium 2.5 mg/dL (1.6-2.3); Phosphorus 3.1 mg/dL (2.5-4.5); Potassium 3.7 mmol/L (3.4-5.0); Sodium 141 mmol/L (137-145)
[2023-10-06 20:16] LABS: Appearance Urine Turbid (Clear); Bilirubin Urine Negative (Negative); Blood Urine 3+ (Negative); Glucose Urine UA Negative (Negative); Ketones Urine Negative (Negative); Leukocyte Esterase Ur Trace LEU/UL (Negative); Nitrate Urine Negative (Negative); Protein Urine 1+ mg/dL (Negative); Specific Grav Ur 1.015 (1.001-1.035)
[2023-10-06 20:19] LABS: Color Urine Dark Yellow (Yellow)
[2023-10-06 20:20] LABS: Add Urine Microscopic? YES
[2023-10-06 20:20] LABS: INR 1.6; Prothrombin Time 19.6 Seconds (11.1-14.7)
[2023-10-06 20:21] LABS: Partial Thromboplastin Time 54.6 SECONDS (22.3-36.8)
[2023-10-06 20:27] LABS: Troponin I < 0.012 ng/mL (0.000-0.034)
[2023-10-06 20:52] LABS: Lactic Acid Reflex 1.3 mmol/L (0.7-2.0)
--- NOTE | 2023-10-06 22:45 | PC.NURSE ---
Per EDP DR. Romero, Pt placed on 15L nonbreather.
[2023-10-06] MEDS: DOXYCYCLINE HYCLATE 100 MG TABLET PO (23:13)
[2023-10-06] MEDS: AMOXICILLIN/CLAVULANATE K 875-125 MG TAB 1 TABLET PO (23:13)
[2023-10-07 00:08] LABS: Troponin I < 0.012 ng/mL (0.000-0.034)
[2023-10-07 01:02] VITALS: BP 155/95; PULSE 85; RESP 20; O2SAT 99
== END 2023-10-07 01:22 | disposition home or self-care (01) ==
PROVIDERS: Student in an Organized Health Care Education/Training Program; Emergency Provider Emergency Medicine; PCP Internal Medicine
DX: J18.9 Pneumonia, unspecified organism (principal); R31.9 Hematuria, unspecified; Z20.822 Contact with and (suspected) exposure to COVID-19; I69.991 Dysphagia following unspecified cerebrovascular disease; I69.951 Hemiplegia and hemiparesis following unspecified cerebrovascular disease affecting right dominant side; I69.920 Aphasia following unspecified cerebrovascular disease; I25.10 Atherosclerotic heart disease of native coronary artery without angina pectoris; I50.30 Unspecified diastolic (congestive) heart failure; I11.0 Hypertensive heart disease with heart failure; I48.0 Paroxysmal atrial fibrillation; J61 Pneumoconiosis due to asbestos and other mineral fibers; N40.0 Benign prostatic hyperplasia without lower urinary tract symptoms; F41.8 Other specified anxiety disorders; Z66 Do not resuscitate; Z85.01 Personal history of malignant neoplasm of esophagus; Z87.891 Personal history of nicotine dependence; Z90.49 Acquired absence of other specified parts of digestive tract; Z79.82 Long term (current) use of aspirin; Z79.01 Long term (current) use of anticoagulants; I45.10 Unspecified right bundle-branch block
CPT/HCPCS: 36415; 70450; 71045; 80053; 81001; 83605; 83690; 83735; 84100; 84443; 84484; 85025; 85610; 85730; 87086; 87637; 93005; 96360; 96361; 99284; A9270; J7030